=== PATIENT | female | born 1980 | race Caucasian/White ===

== ENCOUNTER 2017-12-17 08:36 | Emergency (ER) | payer MEDICAID, SELFPAY ==
[2017-12-17 08:37] VITALS: BP 126/105; PULSE 99; RESP 18; TEMP 37.1; O2SAT 100; BMI 38.2
--- NOTE | 2017-12-17 08:47 | VDLE_ITS ---
Reason For Study: LEG PAIN RIGHT GSV is normal. CFV is compressible, spontaneous, phasic, competent and demonstrates normal augmentation. FV is compressible, spontaneous, phasic, competent and demonstrates normal augmentation. POP V is compressible, spontaneous, phasic, competent and demonstrates normal augmentation. T/P Trunk is compressible. PTV is compressible. RT PerV is compressible. Procedure Exam performed portable in ED. A preliminary report was called and/or faxed to Dr. Aguilar. Interpretation Summary Deep veins of the right lower extremity are patent and compressible segmentally. There is no evidence of right lower extremity deep vein thrombosis. Valvular competence appears intact within the proximal deep venous system on the right . The right greater saphenous vein appears patent and compressible segmentally. Ordering Physician: April Aguilar Referring Physician: Perla Farrell Performed By: Francisca Hough RVT
--- NOTE | 2017-12-17 08:54 | RAD_ITS ---
STUDY: X-RAY - PELVIS AND RIGHT HIP REASON FOR EXAM: Female, 37 years old. Right hip pain x2 weeks. TECHNIQUE: Radiological exam, hip, unilateral, with pelvis when performed; 2 or 3 views. COMPARISON: None. FINDINGS: There is a non-specific bowel gas pattern. Normal visualized soft tissue structures. Normal bilateral iliac wings, sacroiliac joints and visualized sacrum. Normal bilateral superior and inferior pubic rami. Normal pubic symphysis. Normal bilateral ischial tuberosities. Normal visualized femoral head. Normal acetabulum. Normal hip joint. RAD/HIP, UNI W/ Pelvis 2-3 Views IMPRESSION: Normal x-ray examination of the pelvis and right hip. Electronically Signed: Hernesto Malhotra MD at 9:14 EDT , Service support ,
--- NOTE | 2017-12-17 10:03 | ED.VISSUMM ---
- ER Visit Summary Date of Service: 12/17/17 Chief Complaint: Right thigh pain [] History of Present Illness: The patient is a 37 F [presents to the emergency department complaint of pain in the right thigh that started 3 weeks ago. Patient denies any trauma. Patient states she was seen at urgent care last week and told to use ice and naproxen. Patient denies any shortness of breath. She denies recent travel or surgery. She denies any history of DVT or PE. Patient is on Depo-Provera. Past medical history includes hypertension, kidney stones, and bipolar disorder. Patient has history of gastric bypass surgery.] Physical Examination: HEENT-PERRLA, EOMI. Cranial nerves II through XII grossly intact. TMs clear. Mucous membranes moist. No adenopathy. Cardiovascular-regular rate and rhythm without murmur or ectopy Lungs-clear to auscultation, chest wall stable without crepitus or subcu emphysema Abdomen-normoactive bowel sounds, soft, nontender, no rebound or rigidity, no peritoneal signs. Extremities-intact ?4, normal range of motion, normal pulses, atraumatic. Right leg-patient has no tenderness over the right hip on palpation. She describes the pain is in her right groin however I am unable to reproduce her pain with palpation. She does have some mild discomfort with logrolling and flexion at the hip. She is nervously intact with normal pulses and normal sensation. No erythema or warmth noted. Test Results: [Venous duplex of the right lower extremity was negative for DVT. Patient also had x-rays of the right hip and pelvis which were normal.] Emergency Department Course and Treatment: Patient may have meralgia paresthetica as the etiology of her pain.] Treatment Plan: [Patient advised to wear loose clothing and continue with anti-inflammatory. I will write her for a few [place] for severe pain. Patient will be given referral to orthopedics for follow-up.] Disposition: [Discharged home in stable condition.] Impression: [Right thigh pain-etiology uncertain] This note was generated with [employer] dictation software. It may contain incorrect words, spelling, and punctuation that were not noted in review of the chart prior to signing ED Disposition - Plan for ED Patient: Chief Complaint: Lower Extremity Injury Referrals: Veronica Farrell [Primary Care Provider] -
--- NOTE | 2017-12-17 10:06 | ED.DCSUM_ITS ---
- ER Visit Summary Date of Service: 12/17/17 Chief Complaint: Right thigh pain [] History of Present Illness: The patient is a 37 F [presents to the emergency department complaint of pain in the right thigh that started 3 weeks ago. Patient denies any trauma. Patient states she was seen at urgent care last week and told to use ice and naproxen. Patient denies any shortness of breath. She denies recent travel or surgery. She denies any history of DVT or PE. Patient is on Depo-Provera. Past medical history includes hypertension, kidney stones, and bipolar disorder. Patient has history of gastric bypass surgery.] Physical Examination: HEENT-PERRLA, EOMI. Cranial nerves II through XII grossly intact. TMs clear. Mucous membranes moist. No adenopathy. Cardiovascular-regular rate and rhythm without murmur or ectopy Lungs-clear to auscultation, chest wall stable without crepitus or subcu emphysema Abdomen-normoactive bowel sounds, soft, nontender, no rebound or rigidity, no peritoneal signs. Extremities-intact ?4, normal range of motion, normal pulses, atraumatic. Right leg-patient has no tenderness over the right hip on palpation. She describes the pain is in her right groin however I am unable to reproduce her pain with palpation. She does have some mild discomfort with logrolling and flexion at the hip. She is nervously intact with normal pulses and normal sensation. No erythema or warmth noted. Test Results: [Venous duplex of the right lower extremity was negative for DVT. Patient also had x-rays of the right hip and pelvis which were normal.] Emergency Department Course and Treatment: Patient may have meralgia paresthetica as the etiology of her pain.] Treatment Plan: [Patient advised to wear loose clothing and continue with anti- inflammatory. I will write her for a few [place] for severe pain. Patient will be given referral to orthopedics for follow-up.] Disposition: [Discharged home in stable condition.] Impression: [Right thigh pain-etiology uncertain] This note was generated with [employer] dictation software. It may contain incorrect words, spelling, and punctuation that were not noted in review of the chart prior to signing ED Disposition - Plan for ED Patient: Chief Complaint: Lower Extremity Injury Referrals: Veronica Farrell [Primary Care Provider] -
--- NOTE | 2017-12-17 10:08 | DCINST.ED_ITS ---
ED Disposition - Plan for ED Patient: Chief Complaint: Lower Extremity Injury Instructions: ED Strain Groin Prescriptions: Hydrocodone/Acetaminophen [[place] 5-325 Tablet] 1 - 2 ea PO 4X/DAY PRN PRN 3 Days #12 tab PRN Reason: Pain Referrals: Veronica Farrell [Primary Care Provider] - Paulino Cordoba MD [STAFF PHYSICIAN] - 3-5 Days
[2017-12-17 10:13] VITALS: BP 108/77; PULSE 62; RESP 15; O2SAT 99
== END 2017-12-17 10:14 | disposition home or self-care (01) ==
LOC: ED 09:27
PROVIDERS: Emergency Provider Emergency Medicine; Family Provider Family Medicine; PCP Family Medicine
DX: M79.651 Pain in right thigh (principal); I10 Essential (primary) hypertension; F31.9 Bipolar disorder, unspecified; Z87.442 Personal history of urinary calculi; Z98.84 Bariatric surgery status; Z79.899 Other long term (current) drug therapy
CPT/HCPCS: 73502; 93971; 99282

== ENCOUNTER → 2019-01-08 | Outpatient (CLI) | payer MEDICAID, SELFPAY ==
[2019-01-08 10:36] VITALS: BMI 53.1
--- NOTE | 2019-01-08 10:43 | RAD_ITS ---
STUDY: X-RAY CHEST REASON FOR EXAM: Female, 38 years old. Cough and shortness of breath. TECHNIQUE: PA and lateral views of the chest. COMPARISON: None. FINDINGS: The lungs are clear and expanded. There is no demonstrated pleural abnormality. Normal size heart. Normal mediastinum and anabell. Normal visualized pulmonary arteries. Normal visualized aortic arch and descending thoracic aorta. Normal visualized thoracic spine. Normal visualized ribs, clavicles, and shoulders. There is no demonstrated abnormality of the visualized soft tissue structures of the upper abdomen. RAD/Chest PA and Lateral IMPRESSION: Normal x-ray examination of the chest. Electronically Signed: Kodi Wright, at 11:02 EDT , Service support ,
== END | disposition home or self-care (01) ==
LOC: HPRAD 10:42
PROVIDERS: Family Provider Family Medicine; PCP Family Medicine; Referring Provider Physician Assistant Surgical; Visit Provider Physician Assistant Surgical
DX: J40 Bronchitis, not specified as acute or chronic (principal)
CPT/HCPCS: 71046

== ENCOUNTER → 2020-07-17 08:52 | Emergency (ER) | payer OTHER, MEDICAID, SELFPAY ==
[2020-06-20 07:19] VITALS: BMI 56.9
[2020-07-17 08:53] VITALS: BP 165/91; PULSE 82; RESP 18; TEMP 36.6; O2SAT 97; BMI 54.9
[2020-07-17 09:00] VITALS: BP 165/91; PULSE 82; RESP 18; TEMP 36.6; O2SAT 97
--- NOTE | 2020-07-17 09:07 | CT_ITS ---
STUDY: CT ABDOMEN AND PELVIS WITHOUT CONTRAST REASON FOR EXAM: Female, 39 years old. Kidney Stone. Left flank pain. Prior gastric bypass surgery. RADIATION DOSAGE (If Supplied By Facility): CTDIvol = ( 24.18 ) mGy, DLP = ( 1328.96 ) mGycm TECHNIQUE: Transaxial images were obtained from the dome of the diaphragm to the symphysis pubis without oral contrast, and without intravenous contrast. Sagittal and coronal images were reconstructed. Individualized dose optimization techniques were used for this CT. COMPARISON: None. FINDINGS: The visualized lung bases are unremarkable. The visualized portions of the heart are within normal limits. Normal liver. The patient is status post cholecystectomy. Normal spleen. Normal pancreas. Normal bilateral adrenal glands. There is a 7.8 mm calculus in the anterior aspect of the upper calyx of the right kidney. There is a 3.4 mm calculus in the upper pole calyx of the left kidney adjacent to a punctate calcification in the upper pole. 3 small nonobstructive calculi are seen in the lower pole calyx of the left kidney. There is a mild degree of left hydronephrosis due to a 5.8 mm calculus at the left ureteral pelvic junction. 2 adjacent calculi are also seen in the distal portion of the left ureter as well as in the left ureterovesical junction measuring 6.9 mm. The patient is status post subtotal gastrectomy in keeping with the patient''s history of gastric bypass surgery. Small hiatal hernia. Normal small intestine. Normal colon. The appendix is visualized and appears normal. Normal abdominal aorta. Normal inferior vena cava. Normal retroperitoneum. Normal urinary bladder. Normal abdominal wall. Normal osseous structures. CT/Abdomen/Pelvis without Cont IMPRESSION: Bilateral nonobstructive intrarenal calculi. 5.8 mm calculus at the left ureteropelvic junction as well as 6.9 mm calculus at the left ureterovesical junction. Electronically Signed: Kodi Wright MD at 10:47 EDT , Service support ,
--- NOTE | 2020-07-17 09:08 | EDS_ITS ---
HPI History of Present Illness Chief Complaint: Flank Pain Detail of Chief Complaint: Left flank pain Informant: patient Onset/Context/Timing Onset: Yesterday Context: Gradual Onset Timing: Waxes and wanes Current Severity: Moderate Maximum Severity: Moderate Narrative Narrative: Patient presents with left flank pain that started yesterday. She states pain is now lower in her back and wrapping around to the left lower quadrant. Pain feels similar to her prior kidney stones. She has required lithotripsy in the past. She denies fever or chills. No dysuria. No obvious hematuria. PFSH PFS Medical History Alcohol abuse Anemia Anxiety Bipolar disorder Depression HTN (hypertension) Kidney stones opiate abuse Home Medications lisinopril 20 mg-hydrochlorothiazide 12.5 mg tablet 1 tab PO DAILY 28 Days #28 05/23/17 [History Last Taken Unknown] loratadine 10 mg tablet 10 mg PO QDAY 05/23/17 [History Last Taken Unknown] omeprazole 40 mg capsule,delayed release 40 mg PO DAILY 28 Days #28 05/23/17 [History Last Taken Unknown] aripiprazole 15 mg tablet 15 mg PO DAILY 30 Days #30 12/12/18 [History Last T [place] Unknown] escitalopram oxalate 20 mg tablet 20 mg PO DAILY 30 Days #30 12/12/18 [History Last Taken Unknown] naproxen [Naprosyn] 500 mg PO BID PRN #20 tab 07/17/20 [Rx Last Taken Unknown] ondansetron 4 mg PO Q8H PRN 3 Days #10 tab 07/17/20 [Rx Last Taken Unknown] oxycodone-acetaminophen [Percocet] 1 tab PO Q6H PRN 3 Days #14 tab 07/17/20 [Rx Last Taken Unknown] Allergy/AdvReac Type Severity Reaction Status Date / Time morphine AdvReac Other Verified 07/17/20 08:54 topiramate [From Topamax] AdvReac Other Verified 07/17/20 08:54 Family History Other Addiction Diabetes Heart disease Hypertension Obesity Surgical History Gastric bypass status for obesity History of gastric bypass History of lithotripsy Hx of cholecystectomy Social History Smoking Status: Never smoker alcohol intake: current alcohol intake frequency: 0-2 drinks per day Alcohol type: hard liquor ROS ROS ED Constitutional Constitutional ED: Denies chills or fever(s) Eyes Eyes: Denies change in vision or discharge from eye(s) ENT ENT ED: Denies discharge from eye(s), rhinorrhea or sore throat Cardiovascular Cardiovascular: Denies chest pain or palpitations Respiratory/Chest Respiratory/Chest: Denies cough or dyspnea Gastrointestinal Gastrointestinal: Reports abdominal pain; Denies diarrhea, nausea or vomiting Genitourinary Genitourinary ED: Denies difficulty urinating, dysuria or hematuria Musculoskeletal Musculoskeletal: Reports back pain and other Details: Left flank pain ; Denies extremity pain Integumentary Denies Abrasions or rash Neurologic Neurologic: Denies headache(s) or weakness Psychiatric Psychiatric: Denies anxiety or depression Endocrine Endocrinology: Denies polydipsia or polyuria Allergic/Immunologic Allergic/Immunologic ED: Denies lip swelling or urticaria EXAM Physical Exam Const Vital Signs: 07/17/20 08:53 07/17/20 09:00 07/17/20 11:54 Temperature 98 F 98 F 98.1 F Temperature Source Temporal Temporal Temporal Pulse Rate 82 82 84 Respiratory Rate 18 18 16 Blood Pressure 165/91 H 165/91 H 124/85 H Blood Pressure Mean 115 115 98 Pulse Ox 97 97 99 Oxygen Delivery Method Room Air Room Air Room Air Positive well nourished and well developed General Appearance ED: well developed HEENT Reports normocephalic and head/scalp atraumatic Eyes PERRL and EOMs intact bilaterally Neck supple Chest Wall inspection of chest normal and palpation of chest normal Resp normal respiratory effort and clear to auscultation bilaterally Cardio regular rate and regular rhythm GI non-tender Auscultation: hypoactive bowel sounds Palpation: soft Back/Spine no CVA tenderness Extremity normal to inspection Neuro oriented x3 Sensorium / Orientation: alert Psych mental status grossly normal Skin no rashes or lesions noted MDM MDM MDM Narrative Medical decision making narrative: Patient had taken ibuprofen just prior to arrival. She was given Dilaudid and Zofran for pain control. She does have a morphine allergy. Lab Data Attestation: I reviewed the patient's lab results. Labs: Laboratory Results - last 24 hr 07/17/20 07/17/20 07/17/20 09:30 09:30 09:30 WBC 7.8 RBC 4.36 Hgb 7.5 L Hct 28.9 L MCV 66.3 L MCH 17.2 L MCHC 26.0 L RDW Std Deviation 44.8 H RDW Coeff of [place] 19.0 H Plt Count 571 H MPV 9.0 Immature Gran % (Auto) 0.400 Neut % (Auto) 78.4 H Lymph % (Auto) 14.5 L [place] % (Auto) 4.6 Eos % (Auto) 1.8 Baso % (Auto) 0.3 Absolute Neuts (auto) 6.1 Absolute Lymphs (auto) 1.13 Nucleated RBC % 0 Sodium 140 Potassium 3.9 Chloride 105 Carbon Dioxide 27.0 Anion Gap 8 BUN 19 H Creatinine 0.83 Estim Creat Clear Calc 81.89 Est GFR (MDRD) Af Amer 98 Est GFR (MDRD) Non-Af 81 BUN/Creatinine Ratio 22.9 H Glucose 110 H Calcium 8.8 Serum , Qual NEGATIVE Urine Color Urine Clarity Urine pH Ur Specific [place] Urine Protein Urine Glucose (UA) Urine Ketones Urine Occult Blood Urine Nitrite Urine Bilirubin Urine Urobilinogen Ur Leukocyte Esterase Urine RBC Urine WBC Ur Squamous Epith Cells Urine Bacteria Urine Mucus 07/17/20 11:22 WBC RBC Hgb Hct MCV MCH MCHC RDW Std Deviation RDW Coeff of [place] Plt Count MPV Immature Gran % (Auto) Neut % (Auto) Lymph % (Auto) [place] % (Auto) Eos % (Auto) Baso % (Auto) Absolute Neuts (auto) Absolute Lymphs (auto) Nucleated RBC % Sodium Potassium Chloride Carbon Dioxide Anion Gap BUN Creatinine Estim Creat Clear Calc Est GFR (MDRD) Af Amer Est GFR (MDRD) Non-Af BUN/Creatinine Ratio Glucose Calcium Serum , Qual Urine Color Yellow Urine Clarity Sl. Cloudy Urine pH 6.0 Ur Specific [place] 1.020 Urine Protein 30 H Urine Glucose (UA) Normal Urine Ketones Negative Urine Occult Blood 250 H Urine Nitrite Negative Urine Bilirubin Negative Urine Urobilinogen Normal Ur Leukocyte Esterase 25 H Urine RBC 25-50 SEEN Urine WBC 0-5 SEEN Ur Squamous Epith Cells 0-5 SEEN Urine Bacteria RARE Urine Mucus 0 SEEN Radiography Diagnostic Testing: Radiology Impression Abdomen/Pelvis CT 07/17/20 09:07 IMPRESSION: Bilateral nonobstructive intrarenal calculi. 5.8 mm calculus at the left ureteropelvic junction as well as 6.9 mm calculus at the left ureterovesical junction. Electronically Signed: Kodi Wright MD at 10:47 EDT , Service support , Treatment and Re-Evaluation Comments:: Patient's blood work is reviewed. Hemoglobin is currently 7.5. The last hemoglobin I have to compare to is from 2017 at which point it was 11. Patient recently established care with a local primary care physician but has not had any blood work done. This was discussed with her. She has not had any obvious source of bleeding and will follow up closely for this. Urinalysis does reveal blood but no sign of infection. Renal function is normal. CT scan does confirm left-sided kidney stones. She has 2 small stones together at the left UVJ and one at the UPJ. Patient's pain is well controlled at this time. She has a urologist in the [place] area and wishes to follow-up with him. Patient is given return instructions. Discharge Plan Triage Chief Complaint: Flank Pain ED Provider: Lilliam Garcia Dx/Rx/DC Orders Clinical Impression: Kidney stone, Anemia Instructions: Anemia, ED Kidney Stone w/ Colic Prescriptions: New oxycodone-acetaminophen [Percocet] 5-325 mg tablet 1 tab PO Q6H PRN (Reason: pain) 3 Days Qty: 14 RF: 0 ondansetron 4 mg tablet,disintegrating 4 mg PO Q8H PRN (Reason: nausea and vomiting) 3 Days Qty: 10 RF: 0 naproxen [Naprosyn] 500 mg tablet 500 mg PO BID PRN (Reason: pain) Qty: 20 RF: 0 No Action lisinopril-hydrochlorothiazide 20-12.5 mg tablet 1 tab PO DAILY 28 Days Qty: 28 RF: 0 omeprazole 40 mg capsule,delayed release(DR/EC) 40 mg PO DAILY 28 Days Qty: 28 RF: 0 loratadine [Claritin] 10 mg tablet 10 mg PO QDAY RF: 0 aripiprazole 15 mg tablet 15 mg PO DAILY 30 Days Qty: 30 RF: 0 escitalopram oxalate 20 mg tablet 20 mg PO DAILY 30 Days Qty: 30 RF: 0 Primary Care Provider: Thomas Guidry Referrals: Thomas Guidry MD [Primary Care Provider] - Disposition Disposition: Home, self care
[2020-07-17] MEDS: HYDROmorphone 0.5 MG/0.5 ML SYRINGE IV (09:29)
[2020-07-17] MEDS: Ondansetron 4 MG/2 ML Vial IV (09:29)
[2020-07-17 09:39] LABS: Absolute Lymphocyte Count 1.13 X10^3/uL (0.83-4.51); Absolute Neutrophil Count 6.1 X10^3/uL (2.0-7.7); Basophil# 0.02 X10^3/uL; Basophil% 0.3 % (0-1); Eosinophil# 0.14 X10^3/uL; Eosinophils% 1.8 % (0-5); Hematocrit 28.9 % (37-47); Hemoglobin 7.5 g/dL (12.0-15.0); Lymphocyte # 1.13 X10^3/ul (0.83-4.51); Lymphocyte % 14.5 % (19-41); Mean Corpuscular Hgb 17.2 pg (27.0-32.0); Mean Corpuscular Volume 66.3 fL (81-99); Monocyte# 0.36 X10^3/uL; Monocyte% 4.6 % (0-10); NRBC Flagged by Analyzer 0 % (0-5); Neutrophil % 78.4 % (47-70); Platelet Count 571 K/mm3 (150-450); RBC Distribution Width SD 44.8 fl (35.1-43.9); Red Blood Count 4.36 M/mm3 (4.2-5.4); White Blood Count 7.8 K/mm3 (4.4-11.0)
[2020-07-17] MEDS: 0.9% Normal Saline 1,000 ML 250 ML IV (09:39)
[2020-07-17 09:49] LABS: Anion Gap 8 (5-15); BUN 19 mg/dL (7-18); BUN/Creat Ratio 22.9 RATIO (10-20); Calcium,Total 8.8 mg/dL (8.5-10.1); Chloride 105 mmol/L (98-107); Creatinine, Serum 0.83 mg/dL (0.55-1.02); EST Glomerular Filtration Rate 81 mL/min (>60); Est Glom Filt Rate - Afr Amer 98 mL/min (>60); Estimated Creatinine Clearance 81.89 ml/min; Glucose 110 mg/dL (74-106); Potassium 3.9 mmol/L (3.5-5.1); Sodium Level 140 mmol/L (136-145)
[2020-07-17 10:15] LABS: Pregnancy, Serum, hCG Quali. NEGATIVE Negative (0-9 Nonpreg)
[2020-07-17 10:23] LABS: Internal QC Validated? YES +Cl - CLEAR BKGD
[2020-07-17 11:28] LABS: Mucous, Urine 0 SEEN /hpf (<or=2+)
[2020-07-17 11:29] LABS: Color, Urine Yellow (Yellow); Glucose, Dipstick Normal (Normal); Ketone-Dipstick Negative (Negative); Leukocyte Esterase-Dipstick 25 /ul (Negative); Nitrite-Dipstick Negative (Negative); Occult Blood-Urine 250 /ul (Negative); Protein-Dipstick 30 mg/dl (Negative); Urine Bilirubin Dipstick Negative (Negative); Urine Clarity Sl. Cloudy (Clear); Urine Urobilinogen Normal (Normal)
[2020-07-17 11:44] LABS: Bacteria RARE /hpf (None Seen); Red Blood Cells-Urine 25-50 SEEN /hpf (0-5); Squamous Epithelial Cells - UA 0-5 SEEN /hpf (5-10); White Blood Cells 0-5 SEEN /hpf (0-5)
[2020-07-17] MEDS: HYDROmorphone 1 MG/ML Syringe IV (11:53)
[2020-07-17 11:54] VITALS: BP 124/85; PULSE 84; RESP 16; TEMP 36.7; O2SAT 99
[2020-07-17 12:25] VITALS: PULSE 74; O2SAT 95
== END | disposition home or self-care (01) ==
PROVIDERS: Emergency Provider Emergency Medicine; PCP Family Medicine
DX: N20.0 Calculus of kidney (principal); I10 Essential (primary) hypertension; Z87.442 Personal history of urinary calculi; Z79.899 Other long term (current) drug therapy
CPT/HCPCS: 74176; 80048; 81001; 84703; 85025; 96361; 96374; 96375; 96376; 99284; J7030; A4216; J2405

== ENCOUNTER → 2020-08-11 12:28 | Outpatient (CLI) | payer OTHER, MEDICAID, SELFPAY ==
[2020-07-17 08:53] VITALS: BMI 54.9
[2020-08-11 15:21] LABS: Absolute Neutrophil Count 5.3 X10^3/uL (2.0-7.7); Basophil# 0.02 X10^3/uL; Basophil% 0.3 % (0-1); Eosinophil# 0.11 X10^3/uL; Eosinophils% 1.5 % (0-5); Hematocrit 28.9 % (37-47); Hemoglobin 7.5 g/dL (12.0-15.0); Lymphocyte % 18.3 % (19-41); Mean Corpuscular Hgb 16.9 pg (27.0-32.0); Mean Corpuscular Volume 65.2 fL (81-99); Mean Platelet Vol. 9.6 fl (6.2-12.0); Monocyte# 0.35 X10^3/uL; Monocyte% 4.9 % (0-10); NRBC Flagged by Analyzer 0 % (0-5); Neutrophil # 5.32 X10^3/uL (2.7-7.7); Neutrophil % 74.7 % (47-70); Platelet Count 654 K/mm3 (150-450); RBC Distribution Width SD 43.7 fl (35.1-43.9); RET-HE 18.3 pg (30-35); Red Blood Count 4.43 M/mm3 (4.2-5.4); White Blood Count 7.1 K/mm3 (4.4-11.0)
[2020-08-11 15:53] LABS: ALB/GLOB Ratio 1.1 RATIO (0.9-2.4); AST(SGOT) 17 U/L (15-37); Alanine Aminotransfer ALT/SGPT 22 U/L (13-56); Albumin, Serum 3.8 g/dL (3.2-5.0); Alkaline Phosphatase 138 U/L (45-117); Anion Gap 9 (5-15); BUN 16 mg/dL (7-18); BUN/Creat Ratio 23.5 RATIO (10-20); Calcium,Total 9.2 mg/dL (8.5-10.1); Chloride 106 mmol/L (98-107); Cholesterol 207 mg/dL (200); Creatinine, Serum 0.68 mg/dL (0.55-1.02); EST Glomerular Filtration Rate 102 mL/min (>60); Est Glom Filt Rate - Afr Amer 123 mL/min (>60); Ferritin 4 ng/mL (8-252); Globulin 3.4 g/dL (2.2-4.2); Glucose 80 mg/dL (74-106); High Density Lipoprotein 52 mg/dL; Iron Binding Capacity,Total 488 ug/dL (250-450); Potassium 3.8 mmol/L (3.5-5.1); Protein, Total 7.2 g/dL (6.4-8.2); Sodium Level 139 mmol/L (136-145); Thyroid Stim Hormone (TSH) 1.59 uIU/mL (0.358-3.74); Triglycerides 83 mg/dL; Very Low Density Lipoprotein 17 mg/dL (5-40)
== END ==
PROVIDERS: PCP Family Medicine; Referring Provider Family Medicine; Visit Provider Family Medicine
DX: K21.9 Gastro-esophageal reflux disease without esophagitis (principal); I10 Essential (primary) hypertension; D64.9 Anemia, unspecified
CPT/HCPCS: 36415; 80053; 80061; 82728; 83550; 84443; 85025; 85045

== ENCOUNTER → 2020-08-16 15:18 | Outpatient (CLI) | payer OTHER, MEDICAID, SELFPAY ==
[2020-07-17 08:53] VITALS: BMI 54.9
--- NOTE | 2020-08-16 15:22 | RAD_ITS ---
STUDY: X-RAY - ABDOMEN/PELVIS REASON FOR EXAM: Female, 39 years old. KIDNEY STONE TECHNIQUE: Single AP view of the abdomen / pelvis. COMPARISON: None. FINDINGS: Normal visualized lung bases. There is an unremarkable bowel gas pattern. The visualized liver, spleen and kidneys are grossly normal in size and morphology. Normal soft tissue structures. Normal visualized osseous structures. RAD/Abdomen Single View IMPRESSION: Normal x-ray examination of the abdomen and pelvis. Electronically Signed: Claudio Williamson MD at 15:32 EDT Tel , Service support ,
== END ==
PROVIDERS: PCP Family Medicine; Referring Provider Urology; Visit Provider Urology
DX: N20.0 Calculus of kidney (principal)
CPT/HCPCS: 74018

== ENCOUNTER → 2020-08-18 07:56 | Outpatient (CLI) | payer OTHER, MEDICAID, SELFPAY ==
[2020-07-17 08:53] VITALS: BMI 54.9
[2020-08-18] VITALS (7 sets, daily range): BP systolic 120–157; BP diastolic 80–98; PULSE 75–91; RESP 16–18; TEMP 36.4–36.9; O2SAT 96–99; BMI 53.2
[2020-08-18] MEDS: 0.9% NaCl Peripheral Flush Adult/Peds IV ×2 (08:16→10:15)
== END ==
PROVIDERS: PCP Family Medicine; Referring Provider Family Medicine; Visit Provider Family Medicine
DX: D50.9 Iron deficiency anemia, unspecified (principal)
CPT/HCPCS: 36415; 36430; 86850; 86900; 86901; 86920; 86922; J7040; J7050; P9016; A4216

== ENCOUNTER 2020-08-22 06:03 | Day surgery (SDC) | payer OTHER, MEDICAID, SELFPAY ==
[2020-07-17 08:53] VITALS: BMI 54.9
[2020-08-18 08:21] VITALS: BMI 53.2
[2020-08-22] VITALS (9 sets, daily range): BP systolic 103–132; BP diastolic 51–80; PULSE 70–79; RESP 16–18; TEMP 36.2–36.3; O2SAT 94–100; BMI 54.2
[2020-08-22] MEDS: Lactated Ringers 1,000 ML 100 ML IV (06:49)
--- NOTE | 2020-08-22 06:50 | HP.PCM_ITS ---
HPI - General HPI Narrative LOUIS JIMENEZ, is a 39 F who presents for shockwave lithotripsy of left renal stones. She is s/p gastric bypass and has had several stones in the past. Recently passed two stones seen in distal ureter on CT. [facility], [facility] Medical History (Updated 08/22/20 @ 06:[address] Christina Malloy MD) Alcohol abuse Alcohol use Anemia Anxiety Bipolar disorder Depression Gastric reflux HTN (hypertension) Kidney stones Kidney stones Migraine headache Non-smoker opiate abuse Renal calculus Shortness of breath on exertion Substance abuse Wears glasses Home Medications loratadine 10 mg tablet 10 mg PO QDAY 05/23/17 [History Last Taken Unknown] omeprazole 40 mg capsule,delayed release 40 mg PO DAILY 28 Days #28 05/23/17 [History Last Taken Unknown] aripiprazole 15 mg tablet 15 mg PO DAILY 30 Days #30 12/12/18 [History Last Taken Unknown] escitalopram oxalate 20 mg tablet 20 mg PO DAILY 30 Days #30 12/12/18 [History Last Taken Unknown] naproxen [Naprosyn] 500 mg PO BID PRN #20 tab 07/17/20 [Rx Last Taken Unknown] ondansetron 4 mg PO Q8H PRN 3 Days #10 tab 07/17/20 [Rx Last Taken Unknown] ferrous sulfate 325 mg PO DAILY 08/15/20 [History Last Taken Unknown] hydrochlorothiazide 12.5 mg PO DAILY 08/15/20 [History Last Taken Unknown] lisinopril 20 mg PO DAILY 08/15/20 [History Last Taken Unknown] rizatriptan 10 mg PO PRN PRN 08/15/20 [History Last Taken Unknown] Allergy/AdvReac Type Severity Reaction Status Date / Time morphine AdvReac Other Verified 08/22/20 06:34 topiramate [From Topamax] AdvReac Other Verified 08/22/20 06:34 Family History Other Addiction Diabetes Heart disease Hypertension Obesity Surgical History Gastric bypass status for obesity History of gastric bypass History of lithotripsy Hx of cholecystectomy Social History Smoking Status: Never smoker alcohol intake: current alcohol intake frequency: 0-2 drinks per day Alcohol type: hard liquor ROS Constitutional Constitutional: Reports systems reviewed and no addt'l complaints, except as documented Eyes Eyes: Reports systems reviewed and no addt'l complaints, except as documented ENT HEENT: Reports systems reviewed and no addt'l complaints, except as documented Cardiovascular Cardiovascular: Reports systems reviewed and no addt'l complaints, except as documented; Denies chest pain, irregular heart rhythm or nausea Respiratory/Chest Respiratory/Chest: Reports systems reviewed and no addt'l complaints, except as documented and dyspnea Gastrointestinal Gastrointestinal: Reports systems reviewed and no addt'l complaints, except as documented Genitourinary Genitourinary: Reports systems reviewed and no addt'l complaints, except as documented Musculoskeletal Musculoskeletal: Reports systems reviewed and no addt'l complaints, except as documented Integumentary Integumentary: Reports systems reviewed and no addt'l complaints, except as documented Neurologic Neurologic: Reports systems reviewed and no addt'l complaints, except as documented Psychiatric Psychiatric: Reports systems reviewed and no addt'l complaints, except as documented Vital Signs Vital Signs Vital Signs: 08/22/20 06:35 08/22/20 06:37 Temperature 97.2 F L Temperature Source Temporal Pulse Rate 79 Respiratory Rate 18 Respiratory Pattern Normal Blood Pressure 103/51 L Blood Pressure Mean 68 Blood Pressure Source Monitor Blood Pressure Position Semi-Fowlers Blood Pressure Location Right Arm Pulse Ox 100 Oxygen Delivery Method Room Air Weight Weight: 147.8 kg Body Mass Index (BMI) 54.2 Physical Exam HEENT normocephalic, head/scalp atraumatic, hearing grossly normal bilaterally, external ears normal and external nose normal Eyes conjunctivae normal and no scleral icterus General Eye: normal appearance of both eyes Neck supple General: trachea midline Lymph Lymphatic: no lymphedema noted Chest inspection of chest normal Chest: symmetrical chest wall rise Resp normal respiratory effort, normal air movement, no retractions and no use of accessory muscles Effort and Inspection: symmetric chest movement Cardio regular rate and regular rhythm GI soft to palpation, non-tender and non-distended no CVA tenderness and external exam normal Back/Spine no CVA tenderness Extremity normal to inspection Skin no rashes or lesions noted and no wounds Neuro oriented x3, CN's II-XII intact bilaterally and moves all extremities Psych mental status grossly normal, thought process normal, cooperative and affect normal Results Lab / Micro Data Micro: Microbiology 08/21/20 10:10 SARS-CoV-2 Antigen (Rapid) - Final Interface Orders Assessment & Plan Assessment/Plan (1) Renal calculus: PLAN: proceed with extracorporeal shockwave lithotripsy. Informed consent obtained. Procedure Criteria Type of Procedure Procedure Type: Elective Elective Risks - COVID COVID Risk Discussion: The surgeon/proceduralist and patient have discussed in detail the risk of exposure to and/or potential harm posed by the COVID-19 virus with having a surgery/procedure at this time versus the risk of delaying the surgery/procedure. It is not possible to know either the risk of delaying the surgery or procedure or chance of getting an infection with perfect accuracy, but a joint decision was made between the patient and the surgeon/proceduralist to proceed at this time with the scheduled surgery/procedure as indicated on the consent form.
[2020-08-22 07:25] LABS: Internal QC Validated? YES +Cl - CLEAR BKGD; Pregnancy, Urine Negative Negative
[2020-08-22] MEDS: Cefazolin 2 GM in 0.9% Normal Saline 100 ML IV (07:30)
--- NOTE | 2020-08-22 07:58 | PCM.OPRPT ---
Problems Associated Problem List Diagnoses (1) Renal calculus: Report of Operation Date of Procedure: 08/22/20 Pre-Operative Diagnosis: Right renal calculus Post-Operative Diagnosis: Same Surgery/Procedure Performed:: Right renal extracorporal shockwave lithotripsy Surgeon: Christina Malloy Type of Anesthesia: General Specimen's removed: None Description of Procedure: The patient is a 39-year-old female with history of gastric bypass and multiple stones. She recently passed 2 ureteral calculi and on the CAT scan has a 8 mm remaining right renal stone, without hydronephrosis. After discussing the options, she desired to proceed with shockwave lithotripsy. Patient was taken to the operating room and placed on the operating room table. Anesthesia monitored the head, neck, airway, IV access and vital signs throughout the case. Once anesthesia was appropriately administered the patient was aligned with a lithotripter the stone was identified. 3000 Shocks were applied to the stone and it appeared to be well fragmented at the conclusion of the case. She was awakened and taken to the recovery room in good condition. There were no complications during the procedure. Grafts/Implants Used: None Complications None Admit VTE Documentation VTE Present on Admission: Yes VTE Mechan Device Prophylaxis: SCD's VTE Pharm Prophylaxis ordered?: No Reason prophylaxis not ordered:: Treatment Not Indicated
--- NOTE | 2020-08-22 08:02 | PCM.DC ---
Discharge Instructions Diet Discharge Diet: No restrictions Activity Discharge Activity: Return to Normal Activity May resume sexual activity in: No Restrictions Dressing / Incision Call your doctor if you observe: Fever of 101 or Higher, Inability to urinate, Inability to have a bowel movement, Calf discomfort and Uncontrolled pain Follow Up Care Please Follow Up With: Christina Malloy MD When: 2-3 weeks, call office for appointment Test Results: Test results from this visit will be discussed in further detail at your follow-up appointment, if applicable. Discharge Plan Admission Attending Provider: Christina Malloy Primary Care Provider: Thomas Guidry Discharge Orders/Prescriptions Prescriptions: New cephalexin 500 mg capsule 500 mg PO Q12 Qty: 6 RF: 0 Continued omeprazole 40 mg capsule,delayed release(DR/EC) 40 mg PO DAILY 28 Days Qty: 28 RF: 0 loratadine [Claritin] 10 mg tablet 10 mg PO QDAY RF: 0 aripiprazole 15 mg tablet 15 mg PO DAILY 30 Days Qty: 30 RF: 0 escitalopram oxalate 20 mg tablet 20 mg PO DAILY 30 Days Qty: 30 RF: 0 ondansetron 4 mg tablet,disintegrating 4 mg PO Q8H PRN (Reason: nausea and vomiting) 3 Days Qty: 10 RF: 0 naproxen [Naprosyn] 500 mg tablet 500 mg PO BID PRN (Reason: pain) Qty: 20 RF: 0 lisinopril 20 mg tablet 20 mg PO DAILY RF: 0 rizatriptan 10 mg tablet 10 mg PO PRN PRN (Reason: MIGRAINES) RF: 0 ferrous sulfate 325 mg (65 mg iron) Tablet 325 mg PO DAILY RF: 0 hydrochlorothiazide 12.5 mg tablet 12.5 mg PO DAILY RF: 0 Referrals / Follow Up: Thomas Guidry MD [Primary Care Provider] - Disposition Disposition (needs filled in before D/C Order can be placed): Home, self care
== END 2020-08-22 10:41 | disposition home or self-care (01) ==
LOC: SDC 06:03 → AC 06:04
PROVIDERS: PCP Family Medicine; Referring Provider Urology; Visit Provider Urology
PROC: (CPT 50590; principal; 2020-08-22 07:20)
DX: N20.0 Calculus of kidney (principal); D64.9 Anemia, unspecified; I10 Essential (primary) hypertension; K21.9 Gastro-esophageal reflux disease without esophagitis; F31.9 Bipolar disorder, unspecified; F41.9 Anxiety disorder, unspecified; Z79.899 Other long term (current) drug therapy; Z98.84 Bariatric surgery status
CPT/HCPCS: 00873; 50590; 81025; 87426; C9803; J7120; J2405

== ENCOUNTER → 2020-12-14 11:52 | Outpatient (CLI) | payer MEDICAID, SELFPAY ==
[2020-12-14 15:14] LABS: Absolute Lymphocyte Count 1.81 X10^3/uL (0.83-4.51); Absolute Neutrophil Count 7.2 X10^3/uL (2.0-7.7); Basophil# 0.04 X10^3/uL; Basophil% 0.4 % (0-1); Eosinophil# 0.19 X10^3/uL; Hemoglobin 10.8 g/dL (12.0-15.0); Lymphocyte # 1.81 X10^3/ul (0.83-4.51); Lymphocyte % 18.7 % (19-41); Mean Corpuscular Hgb 23.5 pg (27.0-32.0); Mean Corpuscular Volume 78.3 fL (81-99); Mean Platelet Vol. 10.1 fl (6.2-12.0); Monocyte# 0.38 X10^3/uL; Monocyte% 3.9 % (0-10); NRBC Flagged by Analyzer 0 % (0-5); Neutrophil # 7.23 X10^3/uL (2.7-7.7); Neutrophil % 74.7 % (47-70); Platelet Count 453 K/mm3 (150-450); RBC Distribution Width CV 16.1 % (11.6-14.6); RBC Distribution Width SD 45.5 fl (35.1-43.9); White Blood Count 9.7 K/mm3 (4.4-11.0)
[2020-12-14 15:28] LABS: Vitamin B12 460 pg/mL (211-911); Vitamin D,25 Hydroxy 13.9 ng/mL
[2020-12-14 15:39] LABS: ALB/GLOB Ratio 0.9 RATIO (0.9-2.4); AST(SGOT) 13 U/L (15-37); Alanine Aminotransfer ALT/SGPT 24 U/L (13-56); Albumin, Serum 3.4 g/dL (3.2-5.0); Alkaline Phosphatase 149 U/L (45-117); Anion Gap 8 (5-15); BUN 12 mg/dL (7-18); BUN/Creat Ratio 16.4 RATIO (10-20); Calcium,Total 9.1 mg/dL (8.5-10.1); Chloride 105 mmol/L (98-107); Cholesterol 221 mg/dL (200); Creatinine, Serum 0.73 mg/dL (0.55-1.02); EST Glomerular Filtration Rate 94 mL/min (>60); Est Glom Filt Rate - Afr Amer 113 mL/min (>60); Ferritin 4 ng/mL (8-252); Globulin 3.8 g/dL (2.2-4.2); Glucose 85 mg/dL (74-106); High Density Lipoprotein 45 mg/dL; Iron 22 ug/dL (50-170); Iron Binding Capacity,Total 405 ug/dL (250-450); Potassium 4.1 mmol/L (3.5-5.1); Protein, Total 7.2 g/dL (6.4-8.2); Sodium Level 140 mmol/L (136-145); Thyroid Stim Hormone (TSH) 1.64 uIU/mL (0.358-3.74); Triglycerides 170 mg/dL; Very Low Density Lipoprotein 34 mg/dL (5-40)
[2020-12-20 14:30] LABS: Zinc, Plasma or Serum 62 ug/dL (44-115)
== END ==
PROVIDERS: PCP Family Medicine; Referring Provider Family Medicine; Visit Provider Family Medicine
DX: D50.9 Iron deficiency anemia, unspecified (principal); I10 Essential (primary) hypertension; E66.01 Morbid (severe) obesity due to excess calories; E55.9 Vitamin D deficiency, unspecified; Z98.84 Bariatric surgery status
CPT/HCPCS: 36415; 80053; 80061; 82306; 82607; 82728; 83540; 83550; 83735; 84100; 84443; 84630; 85025

== ENCOUNTER 2021-02-06 03:43 | Emergency (ER) | payer MEDICAID, SELFPAY ==
[2021-02-06 03:44] VITALS: BP 186/110; PULSE 98; RESP 17; TEMP 36.1; O2SAT 98; BMI 56.8
--- NOTE | 2021-02-06 04:04 | EX.ED.DYSGE1 ---
HPI History of Present Illness Chief Complaint: Complaint Narrative Narrative: Patient is a 40-year-old female who states that she has had intermittent urinary symptoms for about 1 to 2 weeks. She states however in the last 1 to 2 days she has had increased urinary frequency with dysuria. She states she is also noticed increase in pain along the genital region radiating back towards the left. She does states she has a history of kidney stones but states this feels different in nature. She denies any fevers or chills but states that with her symptoms she is concerned for worsening UTI and therefore comes in for evaluation. Patient denies any vaginal discharge concern for STD or . [facility] Medical History Alcohol abuse Alcohol use Anemia Anxiety Bipolar disorder Depression Gastric reflux HTN (hypertension) Kidney stones Kidney stones Migraine headache Non-smoker opiate abuse Renal calculus Shortness of breath on exertion Substance abuse Wears glasses Home Medications phenazopyridine [Pyridium] 200 mg PO TID 2 Days #6 tab 02/06/21 [Rx Last Taken Unknown] sulfamethoxazole-trimethoprim [Bactrim DS] 1 tab PO BID #20 tab 02/06/21 [Rx Last Taken Unknown] Allergy/AdvReac Type Severity Reaction Status Date / Time morphine AdvReac Other Verified 02/06/21 03:49 topiramate [From Topamax] AdvReac Other Verified 02/06/21 03:49 Family History Other Addiction Diabetes Heart disease Hypertension Obesity Surgical History Gastric bypass status for obesity History of gastric bypass History of lithotripsy Hx of cholecystectomy Social History Smoking Status: Never smoker alcohol intake: current alcohol intake frequency: 0-2 drinks per day Alcohol type: hard liquor ROS ROS ED Constitutional Constitutional ED: Denies chills or fever(s) Cardiovascular Cardiovascular: Denies chest pain Respiratory/Chest Respiratory/Chest: Denies cough or dyspnea Gastrointestinal Gastrointestinal: Reports abdominal pain; Denies diarrhea, nausea or vomiting Genitourinary Genitourinary ED: Reports dysuria and urinary frequency; Denies hematuria Musculoskeletal Musculoskeletal: Reports back pain; Denies myalgias Integumentary Denies rash Neurologic Neurologic: Denies headache(s) EXAM Physical Exam Const Vital Signs: 02/06/21 03:44 Temperature 97 F L Temperature Source Temporal Pulse Rate 98 Respiratory Rate 17 Blood Pressure 186/110 H Blood Pressure Mean 135 Pulse Ox 98 Oxygen Delivery Method Room Air Positive well nourished, well developed and obese General Appearance ED: well developed Nutritional Appearance: obese Eyes PERRL and EOMs intact bilaterally Neck supple Resp normal respiratory effort and clear to auscultation bilaterally Cardio regular rate and regular rhythm Rate: other Other Details: Radial pulses are plus 2 out of 4 bilaterally are equal and symmetric GI non-tender and non-distended GI Narrative: Abdomen is obese soft and nondistended with normal active bowel sounds. There is mild pain with palpation in the suprapubic region without voluntary guarding or rigidity. Auscultation: normoactive bowel sounds Palpation: soft Back/Spine Back/Spine Narrative: Positive left CVA pain Extremity normal to inspection Neuro oriented x3 and CN's II-XII intact bilaterally Sensorium / Orientation: alert Motor Exam: strength 5/5 throughout Psych mental status grossly normal Skin no rashes or lesions noted MDM MDM MDM Narrative Medical decision making narrative: Patient presented to the ER afebrile. Her abdomen was soft and nonsurgical. She did report a history of stones but stated that this was different. We discussed the possible CAT scan as she did have unilateral flank pain but as her abdomen is soft and nonsurgical and she feels that this is more UTI versus kidney stone elected to begin with basic laboratory studies. Patient's kidney function is normal. White count is not elevated. Urine shows +4 bacteria consistent with UTI but no blood going against kidney stone. Patient was given IV hydration Toradol Pyridium and then dosed with Rocephin. With her flank pain there is concern she is progressing to acute pyelonephritis. The urine will be sent for culture. However at this time as she is afebrile with no leukocytosis or left shift or signs of acute kidney injury I do not feel there is need for hospital placement and patient can be discharged home on antibiotics and symptomatic meds Discharge Plan Triage Chief Complaint: Complaint ED Provider: Cesar Coon Dx/Rx/DC Orders Clinical Impression: Acute pyelonephritis Instructions: ED Pyelonephritis, Female (Adult) Prescriptions: New sulfamethoxazole-trimethoprim [Bactrim DS] 800-160 mg tablet 1 tab PO BID Qty: 20 RF: 0 phenazopyridine [Pyridium] 200 mg tablet 200 mg PO TID 2 Days Qty: 6 RF: 0 Primary Care Provider: Care Physician,No Primary Referrals: Doretha Jarvis MD [STAFF PHYSICIAN] - 1 Week if not improving Care Physician,No Primary [Primary Care Provider] - Disposition Disposition: Home, Self Care
--- NOTE | 2021-02-06 04:47 | ED.RN ---
Medications given per order, normal saline, Toradol and Azo.
--- NOTE | 2021-02-06 05:29 | ED.RN ---
Rocephin started as directed.
--- NOTE | 2021-02-06 06:13 | ED.RN ---
Dilaudid and Zofran given as ordered. PT calling for a ride home.
[2021-02-06 06:22] VITALS: BP 180/78; PULSE 88; RESP 18; O2SAT 97
[2021-02-06 06:58] LABS: Mucous, Urine 0 SEEN /hpf (<or=2+)
[2021-02-06 07:11] LABS: Color, Urine Yellow (Yellow); Glucose, Dipstick NEGATIVE (Normal); Urine Bilirubin Dipstick Negative (Negative); Urine Clarity Sl Cldy (Clear)
[2021-02-06 07:12] LABS: Bacteria 4+ /hpf (None Seen); Ketone-Dipstick 15 mg/dl (Negative); Leukocyte Esterase-Dipstick 500 /ul (Negative); Nitrite-Dipstick Positive (Negative); Occult Blood-Urine 25 /ul (Negative); Protein-Dipstick 30 mg/dl (Negative); Red Blood Cells-Urine 0-5 SEEN /hpf (0-5); Squamous Epithelial Cells - UA 0-5 SEEN /hpf (5-10); Urine Urobilinogen Normal (Normal); White Blood Cells 25-50 SEEN /hpf (0-5)
[2021-02-06 07:13] LABS: Internal QC Validated? YES +Cl - CLEAR BKGD; Pregnancy, Urine Negative Negative
[2021-02-06 07:17] LABS: Absolute Lymphocyte Count 1.55 X10^3/uL (0.83-4.51); Absolute Neutrophil Count 4.8 X10^3/uL (2.0-7.7); Basophil# 0.02 X10^3/uL; Basophil% 0.3 % (0-1); Eosinophils% 2.9 % (0-5); Hemoglobin 9.9 g/dL (12.0-15.0); Lymphocyte # 1.55 X10^3/ul (0.83-4.51); Lymphocyte % 22.2 % (19-41); Mean Corpuscular Volume 76.7 fL (81-99); Monocyte# 0.41 X10^3/uL; Monocyte% 5.9 % (0-10); NRBC Flagged by Analyzer 0 % (0-5); Neutrophil # 4.79 X10^3/uL (2.7-7.7); Neutrophil % 68.4 % (47-70); Platelet Count 374 K/mm3 (150-450); RBC Distribution Width SD 46.8 fl (35.1-43.9)
[2021-02-06 07:49] LABS: BUN 10 mg/dL (7-18); BUN/Creat Ratio 20.8 RATIO (10-20); Calcium,Total 8.6 mg/dL (8.5-10.1); Creatinine, Serum 0.48 mg/dL (0.55-1.02); EST Glomerular Filtration Rate 152 mL/min (>60); Est Glom Filt Rate - Afr Amer 184 mL/min (>60); Estimated Creatinine Clearance 140.19 ml/min; Glucose 103 mg/dL (74-106); Sodium Level 140 mmol/L (136-145)
[2021-02-06 07:50] LABS: Anion Gap 5 (5-15); Chloride 108 mmol/L (98-107)
== END 2021-02-06 06:22 | disposition home or self-care (01) ==
PROVIDERS: Emergency Provider Emergency Medicine
DX: N10 Acute pyelonephritis (principal); E66.9 Obesity, unspecified; Z87.442 Personal history of urinary calculi
CPT/HCPCS: 80048; 81001; 81025; 85025; 87077; 87086; 87088; 87186; 99285; J7030; A4216; J2405

== ENCOUNTER → 2021-02-24 14:50 | Outpatient (CLI) | payer MEDICAID, SELFPAY ==
[2021-02-24 15:02] LABS: Mucous, Urine 0 SEEN /hpf (<or=2+); Red Blood Cells-Urine 0 SEEN /hpf (0-5); Squamous Epithelial Cells - UA 0 SEEN /hpf (5-10)
[2021-02-24 15:12] LABS: Color, Urine Yellow (Yellow); Glucose, Dipstick Normal (Normal); Ketone-Dipstick 5 mg/dl (Negative); Leukocyte Esterase-Dipstick 100 /ul (Negative); Nitrite-Dipstick Positive (Negative); Occult Blood-Urine 50 /ul (Negative); Protein-Dipstick 15 mg/dl (Negative); Urine Bilirubin Dipstick Negative (Negative); Urine Clarity Clear (Clear); Urine Urobilinogen Normal (Normal)
[2021-02-24 15:21] LABS: Bacteria 4+ /hpf (None Seen); White Blood Cells 5-10 SEEN /hpf (0-5)
== END ==
PROVIDERS: Referring Provider Nurse Practitioner Family; Visit Provider Nurse Practitioner Family
DX: N39.0 Urinary tract infection, site not specified (principal)
CPT/HCPCS: 81001; 87077; 87086; 87088; 87186

== ENCOUNTER → 2021-02-27 11:43 | Outpatient (CLI) | payer MEDICAID, SELFPAY ==
--- NOTE | 2021-02-27 11:46 | RAD_ITS ---
STUDY: X-RAY - ABDOMEN/PELVIS REASON FOR EXAM: Female, 40 years old. KIDNEY CALCULUS TECHNIQUE: Single AP view of the abdomen / pelvis. COMPARISON: Comparison is made with prior study dated 08/16/2020. FINDINGS: Opaque ingested tablets are seen in the cecum. There is a moderate amount of colonic fecal material. The visualized liver, spleen and kidneys are grossly normal in size and morphology. Normal soft tissue structures. Normal visualized osseous structures. RAD/Abdomen Single View IMPRESSION: No acute abnormality is seen. Electronically Signed: Kodi Wright MD at 15:44 EST , Service support ,
== END ==
PROVIDERS: Referring Provider Urology; Visit Provider Urology
DX: N20.0 Calculus of kidney (principal)
CPT/HCPCS: 74018

== ENCOUNTER 2021-03-20 17:50 | Outpatient (CLI) | payer MEDICAID, SELFPAY ==
--- NOTE | 2021-03-20 17:53 | CT_ITS ---
STUDY: CT ABDOMEN AND PELVIS WITHOUT CONTRAST REASON FOR EXAM: Female, 40 years old. Hematuria, recent uti,low back pain -- Hx:kidney stones -- surgery:gastric bypass,lithotripsy,cholecystectomy RADIATION DOSAGE (If Supplied By Facility): CTDIvol = ( 24.18 ) mGy, DLP = ( 1316.88 ) mGycm TECHNIQUE: Transaxial images were obtained from the dome of the diaphragm to the symphysis pubis without oral contrast, and without intravenous contrast. Sagittal and coronal images were reconstructed. Individualized dose optimization techniques were used for this CT. COMPARISON: Comparison is made with prior study dated 07/17/2020. FINDINGS: The visualized lung bases are unremarkable. The visualized portions of the heart are within normal limits. Normal liver. The patient is status post cholecystectomy. Normal spleen. Normal pancreas. Normal bilateral adrenal glands. There is a 7.7 mm nonobstructive calculus in the anterior upper pole calyx of the right kidney. Tiny nonobstructive calculus in the lower pole calyx of the left kidney. There is evidence of prior subtotal gastrectomy. Surgical anastomosis seen in the small bowel loop in the left upper quadrant. Normal colon. The appendix is visualized and appears normal. Normal abdominal aorta. Normal inferior vena cava. There is borderline retroperitoneal lymphadenopathy with enlarged nodes no greater than 10mm in the short axis diameter. The urinary bladder is empty. Normal abdominal wall. Normal osseous structures. CT/Abdomen/Pelvis without Cont IMPRESSION: 7.7 mm nonobstructive calculus in the upper pole calyx of the right kidney. The patient is status post cholecystectomy. Prior subtotal gastrectomy. Electronically Signed: Kodi Wright MD at 10:17 EST , Service support ,
== END 2021-03-20 23:59 | disposition short-term general hospital (02) ==
PROVIDERS: Visit Provider Urology
DX: N20.0 Calculus of kidney (principal); R31.9 Hematuria, unspecified; M54.50 Low back pain, unspecified; R10.9 Unspecified abdominal pain
CPT/HCPCS: 74176

== ENCOUNTER 2021-04-09 09:22 | Day surgery (SDC) | payer MEDICAID, SELFPAY ==
[2021-04-04 11:39] LABS: Anion Gap 6 (5-15); BUN 14 mg/dL (7-18); BUN/Creat Ratio 22.1 RATIO (10-20); Chloride 109 mmol/L (98-107); Creatinine, Serum 0.63 mg/dL (0.55-1.02); EST Glomerular Filtration Rate 110 mL/min (>60); Est Glom Filt Rate - Afr Amer 133 mL/min (>60); Glucose 101 mg/dL (74-106); Potassium 3.3 mmol/L (3.5-5.1); Sodium Level 142 mmol/L (136-145)
[2021-04-09] VITALS (10 sets, daily range): BP systolic 130–160; BP diastolic 90–107; PULSE 69–83; RESP 16–18; TEMP 36.2–36.8; O2SAT 92–100; BMI 54.3
--- NOTE | 2021-04-09 09:18 | PCM.OPRPT ---
Problems Associated Problem List Diagnoses (1) Renal calculus: (2) Flank pain with history of urolithiasis: (3) UTI (urinary tract infection): Report of Operation Date of Procedure: 04/09/21 Pre-Operative Diagnosis: Right renal calculus, right flank pain, urinary tract infections Post-Operative Diagnosis: Same Surgery/Procedure Performed:: Cystoscopy, attempted right ureteroscopy, right ureteral stent insertion Surgeon: Christina Malloy Type of Anesthesia: General Specimen's removed: None Description of Procedure: The patient is a 40-year-old female with a right renal calculus and flank pain with urinary tract infections intermittently. She presents for surgical intervention and informed consent was obtained. The patient was taken to the operating room and placed on the operating room table. Anesthesia monitored the head, neck, airway, IV access and vital signs throughout the case. Once anesthesia was appropriate ministered the patient was placed into dorsal lithotomy position was prepped and draped in usual sterile fashion. At this time the cystoscope was inserted through the urethra under direct visualization into the urinary bladder. Bilateral ureteral orifices were located on the area of the trigone. There were no bladder mucosal abnormalities identified. The right ureteral orifice was intubated with 2 separate 0.035 glide wires. A an attempt at passage of the flexible ureteroscope was unsuccessful as was an attempt at passing a ureteral reaccessed sheath. At this time the decision was made to place a stent. A 6 Pashto 24 cm JJ stent was placed over one of the wires with good positioning in the renal pelvis as well as the urinary bladder. The patient's bladder was emptied and the case was terminated. She was awakened and taken to the recovery room in good condition. There were no complications during this procedure. Grafts/Implants Used: 6 x 24 JJ stent Complications None Admit VTE Documentation VTE Present on Admission: Yes VTE Mechan Device Prophylaxis: SCD's VTE Pharm Prophylaxis ordered?: No Reason prophylaxis not ordered:: Treatment Not Indicated
--- NOTE | 2021-04-09 09:20 | PCM.DC ---
Discharge Instructions Diet Discharge Diet: No restrictions Activity Discharge Activity: Return to Normal Activity May resume sexual activity in: No Restrictions Dressing / Incision Call your doctor if you observe: Fever of 101 or Higher, Inability to urinate and Inability to have a bowel movement Follow Up Care Please Follow Up With: Christina Malloy MD When: Office will call to set up the next procedure for 2 weeks. Test Results: Test results from this visit will be discussed in further detail at your follow-up appointment, if applicable. Discharge Plan Admission Attending Provider: Christina Malloy Primary Care Provider: [place]io Londono Discharge Orders/Prescriptions Prescriptions: New phenazopyridine [Pyridium] 200 MG tablet 200 mg PO TID PRN PRN (Reason: Bladder Spasms) 7 Days Qty: 30 RF: 0 Continued omeprazole 40 mg Capsule,Delayed Release(Dr/Ec) 40 mg PO DAILY RF: 0 cephalexin 500 mg Capsule 500 mg PO TID RF: 0 loratadine [Claritin] 10 mg Tablet 10 mg PO DAILY RF: 0 bupropion HCl 300 mg tablet extended release 24 hr 300 mg PO DAILY RF: 0 Referrals / Follow Up: Indio Londono MD [Primary Care Provider] - Disposition Disposition (needs filled in before D/C Order can be placed): Home, Self Care
[2021-04-09 09:56] LABS: Internal QC Validated? YES +Cl - CLEAR BKGD; Pregnancy, Urine Negative Negative
[2021-04-09] MEDS: Lactated Ringers 1,000 ML 15 ML IV (10:11)
[2021-04-09 10:27] LABS: Hematocrit 33.6 % (37-47); Hemoglobin 10.1 g/dL (12.0-15.0); Mean Corp Hgb Conc 30.1 g/dL (32-36); Mean Corpuscular Hgb 22.1 pg (27.0-32.0); Mean Corpuscular Volume 73.7 fL (81-99); Mean Platelet Vol. 9.9 fl (6.2-12.0); Platelet Count 441 K/mm3 (150-450); RBC Distribution Width CV 15.9 % (11.6-14.6); RBC Distribution Width SD 42.3 fl (35.1-43.9); Red Blood Count 4.56 M/mm3 (4.2-5.4); White Blood Count 7.5 K/mm3 (4.4-11.0)
[2021-04-09] MEDS: oxyCODONE 5 MG Tablet 10 MG PO (13:44)
[2021-04-09] MEDS: Acetaminophen 325 MG Tablet 650 MG PO (13:45)
[2021-04-09] MEDS: Phenazopyridine 95 MG Tablet 190 MG PO (14:00)
== END 2021-04-09 23:59 | disposition home or self-care (01) ==
LOC: SDC 09:23 → AC 09:24
PROVIDERS: Anesthesiology; PCP Family Medicine; Referring Provider Urology; Visit Provider Urology
PROC: 0TJ98ZZ Inspection of Ureter, Via Natural or Artificial Opening Endoscopic (ICD-10-PCS; CPT 52352; principal; 2021-04-09 10:50)
DX: N20.0 Calculus of kidney (principal); N39.0 Urinary tract infection, site not specified
CPT/HCPCS: 52332; 00910; 36415; 76000; 80048; 81025; 85027; J7120; C2617; J2405

== ENCOUNTER 2021-04-24 12:48 | Day surgery (SDC) | payer MEDICAID, SELFPAY ==
[2021-04-24] VITALS (9 sets, daily range): BP systolic 122–152; BP diastolic 73–95; PULSE 63–84; RESP 16–18; TEMP 36.7–36.9; O2SAT 96–100; BMI 53.1
[2021-04-24 13:16] LABS: Internal QC Validated? YES +Cl - CLEAR BKGD; Pregnancy, Urine Negative Negative
[2021-04-24] MEDS: Lactated Ringers 1,000 ML 15 ML IV (13:40)
--- NOTE | 2021-04-24 14:48 | PCM.OPRPT ---
Problems Associated Problem List Diagnoses (1) Flank pain with history of urolithiasis: (2) Renal calculus: Report of Operation Date of Procedure: 04/24/21 Pre-Operative Diagnosis: right renal calculus Post-Operative Diagnosis: same, passed Surgery/Procedure Performed:: cystoscopy, right ureteroscopy, right ureteral stent removal Surgeon: Christina Malloy Type of Anesthesia: General Description of Procedure: The patient is a 40-year-old female with a history of recurrent nephrolithiasis who presents for removal of a right renal calculus. She has had a stent for ureteral dilation for the last 2 weeks. She has had significant pain over the course of the last week. She was taken to the operating room and placed on the operating room table. Anesthesia monitored the head, neck, airway, IV access and vital signs throughout the case. Once anesthesia was appropriate ministered the patient was placed into dorsal lithotomy position and was prepped and draped in usual sterile fashion. The cystoscope was inserted through the urethra under direct visualization and the bladder was emptied. One clot with gritty debris exited upon entry. At this time the right ureteral orifice and stent were observed. A 0.035 Glidewire was inserted alongside the stent and pushed into the renal pelvis is seen on fluoroscopy. The stent was then removed and a second wire was inserted. The flexible ureteroscope was inserted over one of the wires all the way into the renal pelvis without difficulty. The entire collecting system was visualized and no evidence of calculus was identified. Contrast was injected in retrograde fashion under fluoroscopic visualization to confirm no foreign bodies were identified and that all calyces were appropriately evaluated. At this time the entire length of the right ureter was directly visualized and no stones were identified. The ureteroscope and the remaining safety wire were then removed and the patient was awakened and taken to the recovery room in good condition. There were no complications during this procedure. Grafts/Implants Used: None Complications none Admit VTE Documentation VTE Present on Admission: Yes VTE Mechan Device Prophylaxis: SCD's VTE Pharm Prophylaxis ordered?: No Reason prophylaxis not ordered:: Treatment Not Indicated
--- NOTE | 2021-04-24 14:50 | PCM.DC ---
Discharge Instructions Diet Discharge Diet: No restrictions Activity Discharge Activity: Return to Normal Activity and May Not Drive (when taking narcotics) May resume sexual activity in: No Restrictions Dressing / Incision Call your doctor if you observe: Fever of 101 or Higher, Inability to urinate and Inability to have a bowel movement Follow Up Care Please Follow Up With: Christina Malloy MD When: in 2 weeks, call office for appt Test Results: Test results from this visit will be discussed in further detail at your follow-up appointment, if applicable. Discharge Plan Admission Attending Provider: Christina Malloy Primary Care Provider: [place] Londono Discharge Orders/Prescriptions Prescriptions: New oxycodone-acetaminophen [oxycodone-acetaminophen] 1 TABLET tablet 2 tab PO Q8H PRN PRN (Reason: Pain) 3 Days Qty: 8 RF: 0 cephalexin [cephalexin] 500 MG capsule 500 mg PO Q12 3 Days Qty: 6 RF: 0 Continued omeprazole 40 mg Capsule,Delayed Release(Dr/Ec) 40 mg PO DAILY RF: 0 loratadine [Claritin] 10 mg Tablet 10 mg PO DAILY RF: 0 bupropion HCl 300 mg tablet extended release 24 hr 300 mg PO DAILY RF: 0 phenazopyridine [Pyridium] 200 MG tablet 200 mg PO TID PRN PRN (Reason: Bladder Spasms) 7 Days Qty: 30 RF: 0 Discontinued oxybutynin chloride [Ditropan XL] 10 mg Tablet Extended Release 24hr 10 mg PO TID RF: 0 Referrals / Follow Up: Indio Londono MD [Primary Care Provider] - Disposition Disposition (needs filled in before D/C Order can be placed): Home, Self Care
[2021-04-24] MEDS: oxyCODONE 5 MG Tablet 10 MG PO (17:16)
[2021-04-24] MEDS: Acetaminophen 325 MG Tablet 650 MG PO (17:16)
[2021-04-24] MEDS: Phenazopyridine 95 MG Tablet 190 MG PO (17:16)
[2021-04-24] MEDS: Ketorolac 30 MG/ML Syringe IV (17:36)
== END 2021-04-24 23:59 | disposition home or self-care (01) ==
LOC: SDC 12:50 → AC 12:50
PROVIDERS: Anesthesiology; PCP Family Medicine; Referring Provider Urology; Visit Provider Urology
PROC: 0TJ98ZZ Inspection of Ureter, Via Natural or Artificial Opening Endoscopic (ICD-10-PCS; CPT 52352; principal; 2021-04-24 14:20)
DX: N20.0 Calculus of kidney (principal); F31.9 Bipolar disorder, unspecified; I10 Essential (primary) hypertension; Q63.8 Other specified congenital malformations of kidney; Z79.899 Other long term (current) drug therapy; F41.9 Anxiety disorder, unspecified; L40.9 Psoriasis, unspecified; K21.9 Gastro-esophageal reflux disease without esophagitis; Z98.84 Bariatric surgery status
CPT/HCPCS: 52310; 00918; 76000; 81025; J7120; J2405

== ENCOUNTER → 2021-10-02 | Outpatient (CLI) | payer MEDICAID, SELFPAY ==
[2021-10-02 10:18] LABS: Absolute Lymphocyte Count 1.87 X10^3/uL (0.83-4.51); Absolute Neutrophil Count 5.5 X10^3/uL (2.0-7.7); Basophil# 0.03 X10^3/uL; Basophil% 0.4 % (0-1); Eosinophil# 0.16 X10^3/uL; Hematocrit 33.5 % (37-47); Hemoglobin 9.6 g/dL (12.0-15.0); Lymphocyte # 1.87 X10^3/ul (0.83-4.51); Lymphocyte % 23.8 % (19-41); Mean Corp Hgb Conc 28.7 g/dL (32-36); Mean Corpuscular Hgb 20.4 pg (27.0-32.0); Mean Corpuscular Volume 71.3 fL (81-99); Mean Platelet Vol. 10.1 fl (6.2-12.0); Monocyte# 0.32 X10^3/uL; Monocyte% 4.1 % (0-10); NRBC Flagged by Analyzer 0 % (0-5); Neutrophil # 5.45 X10^3/uL (2.7-7.7); Neutrophil % 69.4 % (47-70); Platelet Count 423 K/mm3 (150-450); RBC Distribution Width CV 18.3 % (11.6-14.6); RBC Distribution Width SD 45.9 fl (35.1-43.9); White Blood Count 7.9 K/mm3 (4.4-11.0)
[2021-10-02 10:36] LABS: AST(SGOT) 14 U/L (15-37); Alanine Aminotransfer ALT/SGPT 18 U/L (13-56); Albumin, Serum 3.4 g/dL (3.2-5.0); Alkaline Phosphatase 123 U/L (45-117); Anion Gap 6 (5-15); BUN 14 mg/dL (7-18); BUN/Creat Ratio 21.6 RATIO (10-20); Calcium,Total 8.9 mg/dL (8.5-10.1); Chloride 108 mmol/L (98-107); Cholesterol 177 mg/dL (200); Creatinine, Serum 0.65 mg/dL (0.55-1.02); EST Glomerular Filtration Rate 107 mL/min (>60); Est Glom Filt Rate - Afr Amer 129 mL/min (>60); Ferritin 3 ng/mL (8-252); Globulin 3.3 g/dL (2.2-4.2); Glucose 100 mg/dL (74-106); High Density Lipoprotein 48 mg/dL; Iron 23 ug/dL (50-170); Iron Binding Capacity,Total 449 ug/dL (250-450); Protein, Total 6.7 g/dL (6.4-8.2); Sodium Level 141 mmol/L (136-145); Triglycerides 72 mg/dL; Very Low Density Lipoprotein 14 mg/dL (5-40)
== END | disposition home or self-care (01) ==
LOC: MFPLAB 08:39
PROVIDERS: PCP Family Medicine; Visit Provider Nurse Practitioner Family
DX: Z13.220 Encounter for screening for lipoid disorders (principal); D50.9 Iron deficiency anemia, unspecified; I10 Essential (primary) hypertension
CPT/HCPCS: 36415; 80053; 80061; 82728; 83540; 83550; 85025

== ENCOUNTER → 2022-03-26 | Outpatient (CLI) | payer MEDICAID, SELFPAY ==
[2022-04-01 22:09] LABS: HPV APTIMA, High Risk Negative (Negative)
== END | disposition home or self-care (01) ==
PROVIDERS: PCP Family Medicine; Referring Provider Obstetrics & Gynecology; Visit Provider Obstetrics & Gynecology
DX: Z12.4 Encounter for screening for malignant neoplasm of cervix (principal)
CPT/HCPCS: 87624; 88175; G0145

== ENCOUNTER → 2022-04-30 | Outpatient (CLI) | payer MEDICAID, SELFPAY ==
--- NOTE | 2022-04-30 07:28 | BI_ITS ---
MAMMOGRAPHY - BILATERAL SCREENING REASON FOR EXAM: Female, 41 years old. Routine annual screening examination. PERTINENT HISTORY: Non-contributory. TECHNIQUE: Digital bilateral breast bridget (3D mammographic acquisition) in the CC and MLO projections. 2-D mediolateral oblique (MLO) and craniocaudad (CC) views of both breasts were obtained. CAD: Full Field Digital Mammography with Computer Added Detection was performed. COMPARISON: None. Baseline examination. FINDINGS: Breast Composition: There are scattered areas of fibroglandular density. There are no dominant masses or suspicious calcifications. Small benign-appearing bilateral axillary lymph nodes. No other significant abnormalities are identified. BI/SCRN MAMM (CAD)W/BRIDGET BILAT IMPRESSION: Negative screening mammogram. Yearly followup mammogram recommended. (A) ASSESSMENT CATEGORY: BIRADS Category 2: Benign. A letter regarding these results will be sent to the patient by the facility within 30 days. Approximately 10% of breast cancers are not detected by mammography. A normal mammogram should not delay biopsy of a clinically suspicious abnormality. [id number] Electronically Signed: Kodi Wright MD at 8:47 EST ,
== END | disposition home or self-care (01) ==
LOC: OPBI 07:27
PROVIDERS: PCP Family Medicine; Referring Provider Family Medicine; Visit Provider Family Medicine
DX: Z12.31 Encounter for screening mammogram for malignant neoplasm of breast (principal)
CPT/HCPCS: 77063; 77067

== ENCOUNTER → 2023-04-18 | Outpatient (CLI) | payer MEDICAID, SELFPAY ==
--- OUTSIDE RECORDS SUMMARY | 2023-04-18 07:33 | XMS RPT_ITS | CCD ---
Author Name Unknown Address [address] [place] [address] Organization [facility] Care Team Providers Care Uranium Processing Supervisor Name Role Phone AMEE LOBO (PT) Attending Unavailable BONNIE SCALES Referring Unavailable VERONICA FARRELL D.O. Referring Unavail able Veronica Farrell Primary Care Unavailable Karen Mcclendon Attending Unavailable Veronica Farrell DO Primary Care Provider [phone] Veronica Farrell DO Primary Care Provider [phone] VERONICA FARRELL Attending Unavailable VERONICA FARRELL Primary Care Unavailable Allergies Allergy Classification Reported Allergen(s) Allergy Type Date of Onset Reaction(s) Facility (3 sources) Morphine; Translations: [MORPHINE] Drug Allergy 09-30-2015 [facility] (3 sources) topiramate; Translations: [TOPIRAMATE] Drug Allergy 09-15-2014 [facility] Medications Current Medications Medication Drug Class(es) Dates Sig (Normalized) Sig (Original) 24 hr buPROPion hydrochloride 300 mg extended release oral tablet (3 sources) Aminoketone Start: 07-02-2022 End: 04-11-2023 take 1 tablet by mouth once daily buPROPion XL (Wellbutrin XL) 300 MG 24 hr tablet Take 1 tablet (300 mg) by mouth daily. 90 tablet 3 04/11/2023 Active ciclopirox 80 mg/ml topical solution (1 source) Start: 04-11-2023 ciclopirox (Penlac) 8 % solution Indications: Onychomycosis Apply topically Nightly. 6 mL 3 04/11/2023 Active hydroCHLOROthiazide 12.5 mg / lisinopril 20 mg oral tablet (3 sources) Thiazide Diuretic, Angiotensin Converting Enzyme Inhibitor Start: 01-31-2023 End: 04-11-2023 take 2 tablets by mouth once daily lisinopril-hydroCH LOROthiazide 20-12.5 MG tablet Indications: Benign essential HTN Take 2 tablets by mouth daily. 180 tablet 3 04/11/2023 Active Problems Active Problems Problem Classification Problem Date Documented Da te Episodic/Chronic Alcohol-related disorders (2 sources) Alcohol dependence; Translations: [Alcohol dependence, in remission] Onset: 09-19-2016 12-28-2021 Chronic Essential hypertension (3 sources) Benign essential hypertension; Translations: [Essential (primary) hypertension] Onset: 04-11-2023 04-11-2023 Chronic Miscellaneous mental health disorders (5 sources) Primary insomnia; Translations: [Primary insomnia] Onset: 12-21-2015 12-28-2021 Chronic Mood disorders (2 sources) Moderate major depression, single episode; Translations: [Major depressive disorder, single episode, moderate] Onset: 12-21-2015 12-28-2021 Chronic Mycoses (1 source) Onychomycosis; Translations: [Tinea unguium] 04-11-2023 Episodic Other gastrointestinal disorders (2 sources) Intestinal malabsorption; Translations: [Intestinal malabsorption, unspecified] Onset: 08-23-2015 12-28-2021 Chronic Other non-traumatic joint disorders (1 source) Pain in right hip joint; Translations: [Pain in right hip] 04-11-2023 Episodic Other non-traumatic joint disorders (2 sources) Pain in right hip; Translations: [Pain in right hip] Onset: 04-11-2023 Episodic Other nutritional; endocrine; and metabolic disorders (2 sources) Obesity; Translations: [Obesity, unspecified] Onset: 08-23-2015 12-28-2021 Chronic Other screening for suspected conditions (not mental disorders or infectious disease) (9 sources) Patient encounter status; Translations: [Encounter for screening for diabetes mellitus] Onset: 04-11-2023 04-11-2023 Episodic Substance-related disorders (2 sources) Opioid dependence in remission; Translations: [Opioid dependence, in remission] Onset: 09-19-2016 12-28-2021 Chronic Past or Other Problems Problem Classification Problem Date Documented Da te Episodic/Chronic Biliary tract disease (2 sources) Cholecystitis; Translations: [Cholecystitis, unspecified] Onset: 08-24-2015 12-28-2021 Episodic Calculus of urinary tract (2 sources) Kidney stone; Translations: [Calculus of kidney] Onset: 12-21-2015 12-28-2021 Episodic Nutritional deficiencies (2 sources) Deficiency of multiple nutrient elements; Translations: [Deficiency of multiple nutrient elements] Onset: 08-23-2015 12-28-2021 Episodic Results Test Name Value Interpretation Reference Range Facil ity Vital Signs Date Time Vital Sign Value Performing Clinician Chel[facility] 04-11-2023 09:40-0500 Body height 165.1 cm Veronica Farrell DO Work Phone: [facility] 04-11-2023 09:40-0500 Body mass index (BMI) [Ratio] 42.43 kg/m2 Veronica Farrell [employer] Work Phone: [facility] 04-11-2023 09:40-0500 Body weight 115.67 kg Veronica Farrell DO Work Phone: [facility] 04-11-2023 09:40-0500 Diastolic blood pressure 72 mm[Hg] Veronica Farrell DO Work Phone: [facility] 04-11-2023 09:40-0500 Heart rate 76 /min Veronica Farrell DO Work Phone: [facility] 04-11-2023 09:40-0500 SaO2% (BldA) [Mass fraction] 98 % Veronica Farrell [employer] Work Phone: [facility] 04-11-2023 09:40-0500 Systolic blood pressure 118 mm[Hg] Veronica Farrell DO Work Phone: [facility] Encounters Encounter Date Encounter Type Care Provider Facility Start: 04-11-2023 End: 04-11-2023 ambulatory VERONICA FARRELL [facility] Start: 04-11-2023 End: 04-11-2023 Patient encounter status Veronica Farrell DO Work Phone: [facility] Start: 04-11-2023 End: 04-11-2023 Periodic preventive med est patient 40-64yrs Veronica Farrell DO Work Phone: [facility] Procedures Date Procedure Procedure Detail Performing Clinician Start: 04-30-2022 Mammography Veronica Farrell DO Work Phone: Plan of Treatment Date Care Activity Detail Author Start: 2040 RSV Immunization age d 60 or older (1 - 1-dose 60+ series) RSV Immunization aged 60 or older (1 - 1-dose 60+ series) [facility] Start: 2030 Zoster Vaccines (1 of 2) Zoster Vacc travis (1 of 2) [facility] Start: 03-17-2024 DTaP/Tdap/Td Vaccine s (2 - Td or Tdap) DTaP/Tdap/Td Vaccines (2 - Td or Tdap) [facility] Start: 04-30-2023 Screening for malign ant neoplasm of breast Mammogram [facility] Start: 04-11-2023 End: 04-11-2024 CBC panel - Blood by Automated count CBC Lab Routine Benign essential HTN Expected: 04/11/2023 (Approximate), Expires: 04/11/2024 [facility] Immunizations Immunization Date Immunization Notes Care Provider Fa devendra 12-21-2015 influenza, injectabl e, quadrivalent, contains preservative Veronica Farrell DO Work Phone: [facility] 12-21-2015 influenza virus vacc ine, unspecified formulation Veronica Farrell DO Work Phone: [facility] 01-05-2015 influenza virus vacc ine, unspecified formulation Veronica Farrell DO Work Phone: [facility] 01-14-2014 influenza virus vacc ine, unspecified formulation Veronica Farrell DO Work Phone: [facility] Payers Date Payer Category Payer Unknown [id number] Unknown Social History Date Type Detail Facility Tobacco smoking status NHIS Never smoked tobacco [facility] Start: 03-01-2022 End: 04-11-2023 Alcohol intake Ex-drinker (finding) [facility] Start: 03-01-2022 History of Social function [facility] Start: 03-01-2022 Tobacco use panel [facility] Start: 03-01-2022 Alcohol Comment Drank 750ml of Vodka 4-5 times a week for several years [facility] Start: 1980 Sex Assigned At Female S [facility] Start: 01-03-2022 Gender identity Identifies as female gender (finding) [facility] Start: 01-03-2022 Sexual orientation Heterosexual (dipika goodwin) [facility] History of Present illness Narrative 04-11-2023 Veronica Farrell, DO - 04/11/2023 9:40 AM EST Note Date & Type Note Facility 04-11-2023 History of Presen t illness Narrative Images from the original note were not included. [facility] [address] [facility] [phone] Visit type: Established Patient Reason for Visit: Med Refill (Pt declines flu shot ) Assessment and Plan Diagnoses and all orders for this visit: Well adult exam UTD on immunizations. Encouraged avoidance of tobacco and alcohol, safe sexual practice. Healthy diet with plenty of fruits, vegetables, whole grains, and lean proteins. Exercise 3-5 times per week for 30-45 minutes. Wear seatbelts. Wear sunscreen. Reviewed age appropriate screening tests. Right hip pain - External referral to Physical Therapy; Future Ok for tylenol Refer to PT Screening for diabetes mellitus - Hemoglobin A1c; Future Benign essential HTN - lisinopril-hydroCHLOROthiazide 20-12.5 MG tablet; Take 2 tablets by mouth daily. - Comprehensive metabolic panel; Future - CBC; Future Chronic, well controlled on current medications. Continue. Primary insomnia - traZODone (Desyrel) 50 MG tablet; Take 0.5 tablets (25 mg) by mouth Nightly. New problem, worsening, start trazodone prn Will take 1/2 tab Screening mammogram for breast cancer - Bilateral screening mammogram with tomosynthesis; Future Screening, lipid - Lipid panel; Future Other orders - buPROPion XL (Wellbutrin XL) 300 MG 24 hr tablet; Take 1 tablet (300 mg) by mouth daily. - loratadine (Claritin) 10 MG tablet; Take 1 tablet (10 mg) by mouth daily. - omeprazole (PriLOSEC) [address] capsule; Take 1 capsule (40 mg) by mouth daily. Onychomycosis -penlac rx sent No follow-ups on file. Subjective HPI Louis is a 42 yo wf w a pmh of htn, depression, gerd and hx of alcoholism who presents for follow up She is sober and doing well Recently had teeth removed and is having dentures placed next week Doesn't sleep well Having trouble bc of her leg Hurts to lay on her hip, right side Sits all day Stretching does seem to help Has fungus on her great toe on right foot No other toes Review of Systems Constitutional: Negative for appetite change, chills, fatigue and fever. HENT: Negative for congestion, ear pain, hearing loss, postnasal drip, sore throat and trouble swallowing. Eyes: Negative for discharge, itching and visual disturbance. Respiratory: Negative for cough, shortness of breath and wheezing. Cardiovascular: Negative for chest pain, palpitations and leg swelling. Gastrointestinal: Negative for abdominal pain, constipation, diarrhea, nausea and vomiting. Endocrine: Negative for cold intolerance, heat intolerance, polydipsia, polyphagia and polyuria. Genitourinary: Negative for difficulty urinating, frequency, urgency, vaginal bleeding, vaginal discharge and vaginal pain. Musculoskeletal: Positive for arthralgias. Negative for back pain, joint swelling and myalgias. Skin: Negative for color change, rash and wound. Neurological: Negative for dizziness, tremors, seizures, speech difficulty, weakness, numbness and headaches. Hematological: Negative for adenopathy. Does not bruise/bleed easily. Psychiatric/Behavioral: Positive for sleep disturbance. Negative for agitation, decreased concentration and dysphoric mood. The patient is not nervous/anxious. Allergies Allergen Reactions Morphine Other reaction(s): Other: See Comments Other reaction(s): Other: See Comments headaches headaches Topiramate Other reaction(s): Other: See Comments Kidney stones Kidney stones Outpatient Medications Prior to Visit Medication Sig Dispense Refill buPROPion XL (Wellbutrin XL) 300 MG 24 hr tablet Take 1 tablet (300 mg) by mouth daily. 90 tablet 2 lisinopril-hydroCHLOROthiazide 20-12.5 MG tablet TAKE 2 TABLETS BY MOUTH EVERY DAY 180 tablet 0 loratadine (Claritin) 10 MG tablet Take 1 tablet (10 mg) by mouth daily. 90 tablet 2 omeprazole (PriLOSEC) [address] capsule Take 1 capsule (40 mg) by mouth daily. 90 capsule 1 No facility-administered medications prior to visit. Past Medical History: Diagnosis Date Allergic rhinitis Anemia Anxiety Deficiency of multiple nutrient elements Depression Gastritis GERD (gastroesophageal reflux disease) Hypertension Insomnia due to mental disorder or depression Intestinal malabsorption Kidney stone Migraine Obesity Obstructive sleep apnea Peptic ulceration Substance abuse (CMS/HCC) ([facility]) Social History Socioeconomic History Marital status: Tobacco Use Smoking status: Never Smokeless tobacco: Never Substance and Sexual Activity Alcohol use: Not Currently Comment: Drank 750ml of Vodka 4-5 times a week for several years Drug use: Not Currently Frequency: 4.0 times per week Types: Oxycodone Sexual activity: Yes Partners: Male control/protection: Implant Past Surgical History: Procedure Laterality Date BARIATRIC SURGERY 11.06.09 CHOLECYSTECTOMY 08/11/15 [facility] CHOLECYSTECTOMY DENTAL SURGERY GASTRIC BYPASS [facility]- [facility] 2009 HERNIA REPAIR 11.06.09 - Hiatal LITHOTRIPSY 11/2012,02/2013 Past Surgical History: Procedure Laterality Date BARIATRIC SURGERY 11.06.09 CHOLECYSTECTOMY 08/11/15 [facility] CHOLECYSTECTOMY DENTAL SURGERY GASTRIC BYPASS LR[facility]GB- [facility] 2009 HERNIA REPAIR 11.06.09 - Hiatal LITHOTRIPSY 11/2012,02/2013 Family History Problem Relation Name Age of Onset High Blood Pressure Father Claudio Alcohol abuse Father Claudio Hypertension Father Claudio Hyperlipidemia Father Claudio Vision loss Father Claudio Depression Mother Mia Miscarriages / Stillbirths Mother Mia Vision loss Mother Mia Depression Sister Kayley Drug abuse Sister Kayley Alcohol abuse Sister Kayley Vision loss Sister Kayley Alcohol abuse Brother Keith Depression Brother Keith Vision loss Brother Keith Objective BP 118/72 Pulse 76 Ht 5' 5 (1.651 m) Wt 255 lb (116 kg) SpO2 98% BMI 42.43 kg/m Physical Exam Vitals and nursing note reviewed. Constitutional: General: She is not in acute distress. Appearance: Normal appearance. She is not ill-appearing. HENT: Head: Normocephalic and atraumatic. Right Ear: Tympanic membrane, ear canal and external ear normal. Left Ear: Tympanic membrane, ear canal and external ear normal. Nose: Nose normal. Mouth/Throat: Mouth: Mucous membranes are dry. Eyes: Extraocular Movements: Extraocular movements intact. Conjunctiva/sclera: Conjunctivae normal. Pupils: Pupils are equal, round, and reactive to light. Cardiovascular: Rate and Rhythm: Normal rate and regular rhythm. Heart sounds: No murmur heard. No friction rub. Pulmonary: Effort: Pulmonary effort is normal. No respiratory distress. Breath sounds: Normal breath sounds. No stridor. No wheezing, rhonchi or rales. Chest: Chest wall: No tenderness. Abdominal: General: Abdomen is flat. Bowel sounds are normal. There is no distension. Palpations: Abdomen is soft. There is no mass. Tenderness: There is no abdominal tenderness. There is no guarding or rebound. Hernia: No hernia is present. Musculoskeletal: General: Normal range of motion. Cervical back: Normal range of motion and neck supple. Right lower leg: No edema. Left lower leg: No edema. Skin: General: Skin is warm and dry. Neurological: General: No focal deficit present. Mental Status: She is alert and oriented to person, place, and time. Psychiatric: Mood and Affect: Mood normal. Behavior: Behavior normal. Thought Content: Thought content normal. Judgment: Judgment normal. Data Reviewed POCT: Labs: Imaging/Testing: Chart Clean Up: Medications Discontinued During This Encounter Medication Reason buPROPion XL (Wellbutrin XL) 300 MG 24 hr tablet Reorder loratadine (Claritin) 10 MG tablet Reorder omeprazole (PriLOSEC) [address] capsule Reorder lisinopril-hydroCHLOROthiazide 20-12.5 MG tablet Reorder Veronica Farrell DO 04/11/2023 12:17 PM documented in this encounter [facility] Telephone encounter Note 11-05-2022 Telephone Encounter - Lilliam Chilel MA - 11/05/2022 12:21 PM EDT Note Date & Type Note Facility 11-05-2022 Telephone encount er Note Recent Visits Date Type Provider Dept 03/01/22 Office Visit Veronica Farrell DO [facility] Showing recent visits within past 365 days and meeting all other requirements Future Appointments No visits were found meeting these conditions. Showing future appointments within next 90 days and meeting all other requirements Requested Prescriptions Pending Prescriptions Disp Refills loratadine (Claritin) 10 MG tablet 90 tablet 2 Sig: Take 1 tablet (10 mg) by mouth daily. Verified pharmacy: yes Verified day(s) supplied: yes Verified refill(s) needed (previous prescription showing no refills in chart): Yes [facility] Note 11-05-2022 Telephone Encounter - Lilliam Chilel MA - 11/05/2022 12:21 PM EDT Note Date & Type Note Facility 11-05-2022 Miscellaneous Notes Formattin g of this note is different from the original. Recent Visits Date Type Provider Dept 03/01/22 Office Visit Veronica Farrell DO [facility] Showing recent visits within past 365 days and meeting all other requirements Future Appointments No visits were found meeting these conditions. Showing future appointments within next 90 days and meeting all other requirements Requested Prescriptions Pending Prescriptions Disp Refills loratadine (Claritin) 10 MG tablet 90 tablet 2 Sig: Take 1 tablet (10 mg) by mouth daily. Verified pharmacy: yes Verified day(s) supplied: yes Verified refill(s) needed (previous prescription showing no refills in chart): Yes documented in this encounter [facility] Evaluation note Note Date & Type Note Facility documented in this encounter [facility] Summary Purpose Family History No Family History Records FoundNo Family History Records FoundNo Family History Records Found Advance Directives No Advanced Directives Records FoundNo Advanced Directives Records FoundNo Advanced Directives Records Found Reason for Referral Specialty Diagnoses / Procedures Referred By Contac t Referred To Contact Physical Therapy Diagnoses Right hip pain Procedures AR OFFICE/OUTPATIENT NEW HIGH MDM 60 MINUTES Veronica Farrell DO [address] [place] [address] Referral ID Status Reason Start Date Expiration Date Visits Requested Visits Authorized [id number] Pending Review Eval and Treat 04/11/2023 10/08/2023 99 99 Additional Source Comments INFORMATION SOURCE (unrecogn ized section and content) DATE CREATED AUTHOR AUTHOR'S ORGANIZ ATION 06/24/2018 [facility] DATE CREATED AUTHOR AUTHOR'S ORGANIZ ATION 04/13/2023 [facility] Reason for Visit (unrecogniz ed section and content) Reason Comments Med Refill Pt declines flu shot Care Teams (unrecognized sec tion and content) Uranium Processing Supervisor Relationship Specialty Start Date End Date Veronica Farrell DO [address] [place] [address] PCP - General 09/15/14 FOR RECORDS PERTAINING TO PATIENTS WHO ARE OR HAVE BEEN ENROLLED IN A CHEMICAL DEPENDENCY/SUBSTANCEABUSE PROGRAM, SOME INFORMATION MAY BE OMITTED. This clinical summary was aggregated from multiple sources. Caution should be exercised in using it in the provision of clinical care. This summary normalizes information from multiple sources, and as a consequence, information in this document may materially change the coding, format and clinical context of patient data. In addition, data may be omitted in some cases. CLINICAL DECISIONS SHOULD BE BASED ON THE PRIMARY CLINICAL RECORDS. [facility] [employer] [facility]. provides no warranty or guarantee of the accuracy or completeness of information in this document.
[2023-04-18 08:02] LABS: Hematocrit 35.1 % (37-47); Hemoglobin 10.3 g/dL (12.0-15.0); Mean Corp Hgb Conc 29.3 g/dL (32-36); Mean Corpuscular Hgb 21.8 pg (27.0-32.0); Mean Corpuscular Volume 74.2 fL (81-99); Mean Platelet Vol. 9.8 fl (6.2-12.0); Platelet Count 424 K/mm3 (150-450); RBC Distribution Width CV 15.7 % (11.6-14.6); Red Blood Count 4.73 M/mm3 (4.2-5.4)
[2023-04-18 08:31] LABS: Hemoglobin A1c 5.4 % (3.8-5.6)
[2023-04-18 09:02] LABS: ALB/GLOB Ratio 1.1 RATIO (0.9-2.4); AST(SGOT) 11 U/L (15-37); Alanine Aminotransfer ALT/SGPT 22 U/L (13-56); Albumin, Serum 3.7 g/dL (3.2-5.0); Alkaline Phosphatase 106 U/L (45-117); Anion Gap 2 (5-15); BUN 23 mg/dL (7-18); BUN/Creat Ratio 29.3 RATIO (10-20); Calcium,Total 9.3 mg/dL (8.5-10.1); Chloride 107 mmol/L (98-107); Cholesterol 207 mg/dL (200); Creatinine, Serum 0.79 mg/dL (0.55-1.02); EST Glomerular Filtration Rate 85 mL/min (>60); Est Glom Filt Rate - Afr Amer 103 mL/min (>60); Ferritin 4 ng/mL (8-252); Globulin 3.5 g/dL (2.2-4.2); Glucose 106 mg/dL (74-106); High Density Lipoprotein 61 mg/dL; Iron 24 ug/dL (50-170); Iron Binding Capacity,Total 468 ug/dL (250-450); PERCENT IRON SATURATION 5.1 % (15.0-55.0); Potassium 3.5 mmol/L (3.5-5.1); Protein, Total 7.2 g/dL (6.4-8.2); Sodium Level 139 mmol/L (136-145); Triglycerides 61 mg/dL; Very Low Density Lipoprotein 12 mg/dL (5-40)
== END | disposition home or self-care (01) ==
LOC: LAB 07:31
PROVIDERS: PCP Family Medicine; Referring Provider Family Medicine; Visit Provider Family Medicine
DX: D50.8 Other iron deficiency anemias (principal); I10 Essential (primary) hypertension; Z13.1 Encounter for screening for diabetes mellitus; Z13.220 Encounter for screening for lipoid disorders
CPT/HCPCS: 36415; 80053; 80061; 82728; 83036; 83540; 83550; 85027

== ENCOUNTER → 2024-03-29 | Outpatient (CLI) | payer BC, SELFPAY ==
--- NOTE | 2024-03-29 07:33 | BI_ITS ---
MAMMOGRAPHY - BILATERAL SCREENING REASON FOR EXAM: Female, 43 years old. Routine annual screening examination. PERTINENT HISTORY: Non-contributory. TECHNIQUE: Digital bilateral breast bridget (3D mammographic acquisition) in the CC and MLO projections. 2-D mediolateral oblique (MLO) and craniocaudad (CC) views of both breasts were obtained. CAD: Full Field Digital Mammography with Computer Added Detection was performed. COMPARISON: Comparison is made with prior study dated April 30, 2022. FINDINGS: Breast Composition: There are scattered areas of fibroglandular density. There are no dominant masses or suspicious calcifications. Stable small bilateral axillary lymph nodes. No other significant abnormalities are identified. There has been no significant change since the prior study. BI/SCRN MAMM (CAD)W/BRIDGET BILAT IMPRESSION: Stable bilateral screening mammogram. Yearly follow-up mammogram recommended. (A) ASSESSMENT CATEGORY: BIRADS Category 2: Benign. A letter regarding these results will be sent to the patient by the facility within 30 days. Approximately 10% of breast cancers are not detected by mammography. A normal mammogram should not delay biopsy of a clinically suspicious abnormality. [id number] Electronically Signed: Kodi Wright MD at 8:52 EST ,
== END | disposition home or self-care (01) ==
PROVIDERS: PCP Family Medicine; Referring Provider Obstetrics & Gynecology; Visit Provider Obstetrics & Gynecology
DX: Z12.31 Encounter for screening mammogram for malignant neoplasm of breast (principal)
CPT/HCPCS: 77063; 77067

== ENCOUNTER → 2025-01-27 | Outpatient (CLI) | payer BC, SELFPAY ==
--- OUTSIDE RECORDS SUMMARY | 2025-01-26 19:10 | XMS RPT_ITS | CCD ---
Author Organization [facility] Care Team Providers Care Respiratory Services Manager Name Role Phone NURIA LOBO (PT) Attending Unavailable MICHAEL SCALES Referring Unavailable VERONICA FARRELL D.O. Referring Unavail able Veronica Farrell Primary Care Unavailable Karen Mcclendon Attending Unavailable Dr. Indio Londono Primary Care Provider Dr. Indio Londono Referring Provider Dr. Lilliam Patton Attending Provider YANCY Garay Attending Provider Dr. Indio Londono Primary Care Provider Dr. Indio Londono Referring Provider Dr. Lilliam Patton Attending Provider Veronica Farrell DO Primary Care Provider Veronica Farrell DO Primary Care Provider Roberta Scott Attending Unavailable Roberta Scott Attending Unavailable Lilliam Patton Attending UnavailLilliam Camargo Referring Unavailabl e VERONICA FARRELL Primary Care Unavailable VERONICA FARRELL Primary Care Unavailable VERONICA FARRELL Referring Unavailable Michael Glover Attending Unavailable VERONICA FARRELL Attending Unavailable VERONICA FARRELL Primary Care Unavailable Allergies Allergy Classification Reported Allergen(s) Allergy Type Date of Onset Reaction(s) Facility (11 sources) Morphine; Translations: [MORPHINE] Drug Allergy 09-30-2015 Other [facility] Repository (11 sources) topiramate; Translations: [TOPIRAMATE] Drug Allergy 09-15-2014 Other [facility] Repository Medications Current Medications Medication Drug Class(es) Dates Sig (Normalized) Sig (Original) benzocaine 200 mg/ml topical cream (8 sources) Standardized Chemical Allergen Start: 2 End: 2 Benzocaine (Benzodent) 20 % cream Active 1 APPLIC MUCOUS MEM 2 to 3 times per day September 24, 2021 5:31am use after food and/or drink and/or oral hygiene Etonogestrel (Nexplanon) 68 mg implant (3 sources) Start: 3 Etonogestrel (Nexplanon) 68 mg implant Active 1 IMPLANT subdermal ONCE March 26, 2022 12:00am as a single dose ferrous sulfate 325 mg oral tablet (1 source) Start: 4 End: 5 take 1 tablet by mouth once daily at breakfast ferrous sulfate 325 (65 Fe) MG tablet Take 1 tablet (325 mg) by mouth daily (with breakfast). 30 tablet 11 06/02/2023 06/01/2024 Active hydroCHLOROthiazide 25 mg oral tablet (4 sources) Thiazide Diuretic Start: 5 End: 6 take 1 tablet by mouth once daily hydroCHLOROthiazide (HYDRODiuril) 25 MG tablet Take 1 tablet (25 mg) by mouth daily. 90 tablet 3 06/01/2024 11/23/2025 Active lisinopril 40 mg oral tablet (4 sources) Angiotensin Converting Enzyme Inhibitor Start: 5 End: 6 take 1 tablet by mouth once daily lisinopril 40 MG tablet Take 1 tablet (40 mg) by mouth daily. 90 tablet 3 06/01/2024 11/23/2025 Active loratadine 10 mg oral tablet (11 sources) Start: 2 End: 4 take 1 tablet by mouth once daily loratadine (Claritin) 10 MG tablet Take 1 tablet (10 mg) by mouth daily. 90 tablet 3 04/11/2023 Active omeprazole 20 mg delayed release oral tablet (12 sources) Proton Pump Inhibitor Start: 5 End: 5 take 1 tablet by mouth once daily before breakfast omeprazole OTC (PriLOSEC OTC) 20 MG EC tablet Take 1 tablet (20 mg) by mouth every morning (before breakfast). Do not crush, chew, or split. 90 tablet 3 06/01/2024 Active Start: 04-04-2021 End: 06-01-2024 take 1 capsule by mouth once daily omeprazole (PriLOSEC) [address] capsule Take 1 capsule (40 mg) by mouth daily. 90 capsule 3 04/11/2023 06/01/2024 Discontinued (Med list cleanup) Completed/Discontinued Medications Medication Drug Class(es) Dates Sig (Normalized) Sig (Original) acetaminophen 325 mg / HYDROcodone bitartrate 5 mg oral tablet (4 sources) Opioid Agonist Start: 12-17-2017 End: 12-20-2017 Hydrocodone-Aceta minophen Discontinued 1 - 2 EACH PO 4 TIMES DAILY NEEDED 12 December 16, 2017 11:00pm December 19, 2017 11:12pm acetaminophen 325 mg / oxyCODONE hydrochloride 5 mg oral tablet (4 sources) Opioid Agonist Start: 04-24-2021 End: 08-03-2021 take 2 tablets by mouth every eight hours as needed Oxycodone-Acetami nophen Discontinued 2 TABLET PO EVERY 8 HOURS NEEDED 8 April 24, 2021 August 03, 2021 9:07am amLODIPine 10 mg oral tablet (8 sources) Dihydropyridine Calcium Channel Zenaida Start: 05-23-2017 End: 07-04-2019 take 10 mg by mouth once daily Amlodipine Discontinued 10 MG PO DAILY December 12, 2018 7:38am July 04, 2019 7:27am amoxicillin 875 mg / clavulanate 125 mg oral tablet (16 sources) Penicillin-class Antibacterial Start: 09-24-2021 End: 10-04-2021 take 1 tablet by mouth every twelve hours Amoxicillin-Pot Clavulanate Discontinued 1 TABLET PO Q12H 03 01September 24, 2021 5:32am October 03, 2021 11:02pm Start: 07-04-2019 End: 07-14-2019 take 1 tablet by mouth every twelve hours Amoxicillin-Pot Clavulanate (Augmentin) 875-125 mg tablet Discontinued 1 TABLET PO Q12H 03 01July 03, 2019 11:00pm July 13, 2019 11:01pm Start: 12-12-2018 End: 01-08-2019 take 1 tablet by mouth twice daily Amoxicillin-Pot Clavulanate (Augmentin) 875-125 mg tablet Discontinued 1 TABLET PO TWICE A DAY December 11, 2018 11:00pm January 08, 2019 9:38am ARIPiprazole 15 mg oral tablet (4 sources) Atypical Antipsychotic Start: 05-23-2017 End: 12-12-2018 take 15 mg by mouth once daily Aripiprazole Discontinued 15 MG PO DAILY May 23, 2017 12:00am December 12, 2018 7:41am benzonatate 100 mg oral capsule (4 sources) Non-narcotic Antitussive Start: 01-08-2019 End: 07-04-2019 take 200 mg by mouth three times daily Benzonatate Discontinued 200 MG PO THREE TIMES A DAY January 07, 2019 11:00pm July 04, 2019 7:26am 24 hr buPROPion hydrochloride 300 mg extended release oral tablet (8 sources) Aminoketone Start: 04-04-2021 End: 06-01-2024 take 1 tablet by mouth once daily buPROPion XL (Wellbutrin XL) 300 MG 24 hr tablet Take 1 tablet (300 mg) by mouth daily. 90 tablet 3 04/11/2023 06/01/2024 Discontinued (Med list cleanup) cephalexin 500 mg oral capsule (4 sources) Cephalosporin Antibacterial Start: 04-24-2021 End: 08-03-2021 take 500 mg by mouth every twelve hours Cephalexin Discontinued 500 MG PO EVERY 12 HOURS 6 3 April 24, 2021 12:00am August 03, 2021 9:08am ciclopirox 80 mg/ml topical solution (2 sources) Start: 04-11-2023 End: 06-01-2024 ciclopirox (Penlac) 8 % solution Indications: Onychomycosis Apply topically Nightly. 6 mL 3 04/11/2023 06/01/2024 Discontinued (Med list cleanup) ciprofloxacin 500 mg oral tablet (4 sources) Quinolone Antimicrobial Start: 02-24-2021 End: 03-06-2021 take 500 mg by mouth twice daily Ciprofloxacin Hcl Discontinued 500 MG PO TWICE A DAY 03 01February 24, 2021 12:00am March 06, 2021 12:01am escitalopram 20 mg oral tablet (4 sources) Serotonin Reuptake Inhibitor Start: 05-23-2017 End: 12-12-2018 take 20 mg by mouth once daily Escitalopram Oxalate Discontinued 20 MG PO DAILY May 23, 2017 12:00am December 12, 2018 7:41am hydroCHLOROthiazide 12.5 mg / lisinopril 20 mg oral tablet (7 sources) Thiazide Diuretic, Angiotensin Converting Enzyme Inhibitor Start: 01-31-2023 End: 06-01-2024 take 2 tablets by mouth once daily lisinopril-hydroC HLOROthiazide 20-12.5 MG tablet Indications: Benign essential HTN Take 2 tablets by mouth daily. 180 tablet 3 04/11/2023 06/01/2024 Discontinued (Cost of medication) Start: 07-02-2022 take 2 tablets by mouth once daily lisinopril-hydroCHLOROthiazide 20-12.5 M G tablet Take 2 tablets by mouth daily. 90 tablet 2 07/02/2022 Active Start: 03-26-2022 take 1 tablet by liu th once daily Lisinopril-Hydrochlorothiazide Active 1 TABLET PO DAILY March 26, 2022 12:00am methylPREDNISolone 4 mg oral tablet (4 sources) Corticosteroid Start: 12-12-2018 End: 01-08-2019 take 1 tablet by mouth once Methylprednisolone (Medrol (Doug)) 4 mg tablets,dose pack Discontinued 0 PO per package directions December 11, 2018 11:00pm January 08, 2019 9:39am PO PER PKG DIR 24 hr oxybutynin chloride 10 mg extended release oral tablet (4 sources) Cholinergic Muscarinic Antagonist Start: 04-23-2021 End: 04-24-2021 take 1 tablet by mouth three times daily Oxybutynin Chloride (Ditropan Xl) 10 mg Tablet Extended Release 24hr Discontinued 10 MG PO THREE TIMES A DAY April 23, 2021 12:00am April 24, 2021 2:51pm phenazopyridine hydrochloride 200 mg oral tablet (8 sources) Start: 04-09-2021 End: 08-03-2021 take 1 tablet by mouth three times daily as needed Phenazopyridine (Pyridium) 200 MG tablet Discontinued 200 MG PO 3 TIMES DAILY NEEDED 13 10April 09, 2021 12:00am August 03, 2021 9:07am Start: 02-06-2021 End: 02-24-2021 take 1 tablet by mouth three times daily Phenazopyridine (Pyridium) 200 mg tablet Discontinued 200 MG PO THREE TIMES A DAY 6 February 06, 2021 12:00am February 24, 2021 12:29pm predniSONE 10 mg oral tablet (8 sources) Start: 03-19-2020 End: 07-02-2020 Prednisone Discontinued 10 MG PO daily 30 12 June 19, 2020 11:00pm July 01, 2020 11:03pm Take 4 tabs once daily days 1-3 3 tabs once daily days 4-6 2 tabs once daily days 7-9 and 1 tab once daily days 10-12. sulfamethoxazole 800 mg / trimethoprim 160 mg oral tablet (4 sources) Dihydrofolate Reductase Inhibitor Antibacterial, Sulfonamide Antimicrobial Start: 02-06-2021 End: 02-24-2021 take 1 tablet by mouth twice daily Sulfamethoxazole- Trimethoprim (Bactrim Ds) 800-160 mg tablet Discontinued 1 TABLET PO TWICE A DAY February 06, 2021 12:00am February 24, 2021 12:30pm traZODone hydrochloride 50 mg oral tablet (2 sources) Serotonin Reuptake Inhibitor Start: 04-11-2023 End: 06-01-2024 take 0.5 tablet by mouth once daily traZODone (Desyrel) 50 MG tablet Indications: Primary insomnia Take 0.5 tablets (25 mg) by mouth Nightly. 30 tablet 3 04/11/2023 06/01/2024 Discontinued (Med list cleanup) Problems Active Problems Problem Classification Problem Date Documented Da te Episodic/Chronic Abdominal pain (4 sources) Flank pain; Translations: [Unspecified abdominal pain] 04-09-2021 Episodic Acute bronchitis (4 sources) Acute bronchitis; Translations: [Acute bronchitis, unspecified] 01-08-2019 Episodic Alcohol-related disorders (5 sources) Alcohol dependence; Translations: [Alcohol dependence, in remission] Onset: 09-19-2016 12-28-2021 Chronic Allergic reactions (4 sources) Inflammatory dermatosis; Translations: [Irritant contact dermatitis, unspecified cause] 06-20-2020 Episodic Contraceptive and procreative management (10 sources) Patient encounter status; Translations: [Encounter for surveillance of implantable subdermal contraceptive] Episodic Deficiency and other anemia (4 sources) Anemia; Translations: [Anemia, unspecified] 07-21-2020 Episodic Deficiency and other anemia (1 source) Iron deficiency anemia; Translations: [Other iron deficiency anemias] 06-01-2024 Episodic Disorders of teeth and jaw (5 sources) Dental caries; Translations: [Dental caries, unspecified] Episodic Essential hypertension (4 sources) Benign essential hypertension; Translations: [Essential (primary) hypertension] Onset: 06-01-2024 04-11-2023 Chronic Fever of unknown origin (4 sources) Fever; Translations: [Fever, unspecified] 02-20-2021 Episodic Miscellaneous mental health disorders (6 sources) Primary insomnia; Translations: [Primary insomnia] Onset: 12-21-2015 12-28-2021 Chronic Mood disorders (5 sources) Moderate major depression, single episode; Translations: [Major depressive disorder, single episode, moderate] Onset: 12-21-2015 12-28-2021 Chronic Mycoses (1 source) Onychomycosis; Translations: [Tinea unguium] 04-11-2023 Episodic Other gastrointestinal disorders (5 sources) Intestinal malabsorption; Translations: [Intestinal malabsorption, unspecified] Onset: 08-23-2015 12-28-2021 Chronic Other non-traumatic joint disorders (1 source) Pain in right hip joint; Translations: [Pain in right hip] 04-11-2023 Episodic Other nutritional; endocrine; and metabolic disorders (5 sources) Obesity; Translations: [Obesity, unspecified] Onset: 08-23-2015 12-28-2021 Chronic Other upper respiratory infections (4 sources) Acute upper respiratory infection; Translations: [Acute upper respiratory infection, unspecified] 02-20-2021 Episodic Residual codes; unclassified (2 sources) Edema; Translations: [Edema, unspecified] 10-25-2024 Episodic Substance-related disorders (8 sources) Opioid dependence in remission; Translations: [Opioid dependence, in remission] Onset: 09-19-2016 12-28-2021 Chronic Urinary tract infections (8 sources) Urinary tract infectious disease; Translations: [Urinary tract infection, site not specified] 02-24-2021 Episodic Past or Other Problems Problem Classification Problem Date Documented Da te Episodic/Chronic Biliary tract disease (5 sources) Cholecystitis; Translations: [Cholecystitis, unspecified] Onset: 08-24-2015 12-28-2021 Episodic Calculus of urinary tract (13 sources) Kidney stone; Translations: [Calculus of kidney] Onset: 12-21-2015 08-22-2020 Episodic Deficiency and other anemia (2 sources) Other iron deficiency anemias; Translations: [Other iron deficiency anemias] Onset: 06-01-2024 Episodic Immunizations and screening for infectious disease (6 sources) Viral screening status; Translations: [Encounter for screening for other viral diseases] Onset: 06-01-2024 06-01-2024 Episodic Nutritional deficiencies (5 sources) Deficiency of multiple nutrient elements; Translations: [Deficiency of multiple nutrient elements] Onset: 08-23-2015 12-28-2021 Episodic Other screening for suspected conditions (not mental disorders or infectious disease) (5 sources) Encounter for screening mammogram for malignant neoplasm of breast; Translations: [Encounter for screening for lipoid disorders] Onset: 04-20-2024 Episodic Unclassified (3 sources) opiate abuse 10-15-2021 Results Test Name Value Interpretation Reference Range Facility 36on 01-18-2025 36 See previous emails from this patient. I believe she needs refill on lisinopril 20 mg a day and hydrochlorothiazide 50 mg a day. She preferred you to handle the refills. 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: Annual 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 Technologist Required: No Is patient in pain?: No Allergies morphine Adverse Reaction (Verified 06/18/24 08:03) Other topiramate (From Topamax) Adverse Reaction (Verified 06/18/24 08:03) Other Medications ???Medication ???Instructions ???Recorded ???Confirmed ???Type loratadine 10 mg tablet (Claritin) 10 mg PO DAILY 04/04/21 06/18/24 History omeprazole 40 mg capsule,delayed 40 mg PO DAILY 04/04/21 06/18/24 H istory release etonogestrel 68 mg subdermal 1 implant subdermal ONCE 03/26/22 06/18/24 History implant (Nexplanon) lisinopril 20 1 tab PO DAILY 03/26/22 06/18/24 H istory mg-hydrochlorothiazide 25 mg tablet ferrous sulfate 325 mg (65 mg 325 mg PO DAILY 11/11/23 06/18/24 History iron) tablet glucosamine-chondroitin 250 mg-200 2 tab PO ONCE 11/11/23 06/18/24 History mg tablet (Osteo Bi-Flex) ibuprofen 600 mg tablet 600 mg PO Q8H PRN pain #21 tabs 06/18/24 Rx mecobalamin (vitamin B12) 5,000 5,000 mcg PO DAILY 11/11/23 History mcg chewable tablet Is last menstrual period known: Yes Last Menstrual Period: 05/05/24 Post menopausal: No Patient : No : No Control Method: Nexplanon [facility] Medical History Lumbar strain Thoracic myofascial strain Flank pain with history of urolithiasis Psoriasis Sleep apnea Renal calculus Alcohol use Substance abuse Wears glasses Kidney stones Migraine headache Gastric reflux Non-smoker Shortness of breath on exertion Bipolar disorder opiate abuse Alcohol abuse Anxiety Depression HTN (hypertension) Kidney stones Anemia Surgical History History of cystoscopy Hx of cholecystectomy History of gastric bypass History of lithotripsy Gastric bypass status for obesity Family History Father Hypertension Addiction Grandfather Heart disease Diabetes Obesity Social History Smoking Status: Never smoker alcohol intake: former year quit: 2018 substance use type: former substance user Date of last use: 2018 caffeine: Yes what type of physical activity do you participate in: none seatbelt use: always do you feel safe at home: Yes additional social history: History 2 Elective abortions Hx Para 2 Spontaneous abortions Hx # Term Pregnancies Ectopic pregnancies Hx # Pregnancies Multiple births # of living children Past Pregnancies Del. Date Name GA/Weeks Outcome Route Bth Weight Gen Labor Lgth Anesthesia Del Locatn Provider FOB Unknown Milagro Unknown So HPI Encounter for routine gynecological examination Details: LOUIS JIMENEZ is a 43 year old who presents for annual exam. Nexplanon for contraception and doing well. Does not have regular menses with this. Last PAP: 03/26/2022 History of abnormal PAP: No Last mammogram: 03/29/2024 History of abnormal mammogram: No Colon cancer screening: Due at 45 Other preventative health care screenings: PCP Female Reproductive History Last Menstrual Period: 05/05/24 Questions: sexually active: Yes, dyspareunia: No and PCB: No Menopausal Symptoms: No hot flashes, No night sweats, No mood changes and No sleep problems ROS Const Constitutional: Reports system reviewed and no additional complaints, except as documented; Denies night sweats Cardio Card: Reports system reviewed and no additional complaints, except as documented Resp Resp: Reports system reviewed and no additional complaints, except as documented GI GI: Reports system reviewed and no additional complaints, except as documented : Reports system reviewed and no additional complaints, except as documented; Denies difficulty voiding, dysuria, hot flashes or urinary frequency Skin Skin/Breast: Reports system reviewed and no additional complaints, except as documented Neuro Neuro: Reports system reviewed and no additional complaints, except as documented Psych Psych: Reports system reviewed and no additional complaints, except as documented; Denies anhedonia, anxiety or depression Exam Const General (more content not included)... Normal [facility] Patient Observer Office Visit Reporton 06-03-2024 Patient Observer Office Visit Report [facility] [address], [address] [place] [address] OFFICE VISIT Date of Service: 06/03/24 MR#: [id number] Acct: [id number] Name: LOUIS JIMENEZ Rep #: [id number] : 1980 Provider: DEAN Haider ams Age/Sex: 43/F Location: [facility] [place] Status: Signed Intake Vital Signs 11/11/23 06:18 06/03/24 08:33 06/03/24 08:35 Height 5 ft 5 in 5 ft 5 in 5 ft 5 in Weight: 257 lb 6 oz 260 lb 4 oz BMI 42.8 43.2 BP 120/60 113/82 H Position Sitting Pulse 62 Temp 98.9 F Pulse Oximetry (%) 96 Oxygen Delivery Method room air Intake Visit Reasons: Nexplanon Removal and Insertion Chief Complaint: Nexplanon Removal and Insertion Is patient in pain?: No Allergies morphine Adverse Reaction (Verified 06/03/24 08:31) Other topiramate (From Topamax) Adverse Reaction (Verified 06/03/24 08:31) Other Medications ???Medication ???Instructions ???Recorded ???Confirmed ???Type loratadine 10 mg tablet (Claritin) 10 mg PO DAILY 04/04/21 06/03/24 History omeprazole 40 mg capsule,delayed 40 mg PO DAILY 04/04/21 06/03/24 H istory release etonogestrel 68 mg subdermal 1 implant subdermal ONCE 03/26/22 11/11/23 History implant (Nexplanon) lisinopril 20 1 tab PO DAILY 03/26/22 06/03/24 H istory mg-hydrochlorothiazide 25 mg tablet ferrous sulfate 325 mg (65 mg 325 mg PO DAILY 11/11/23 06/03/24 History iron) tablet glucosamine-chondroitin 250 mg-200 2 tab PO ONCE 11/11/23 06/03/24 History mg tablet (Osteo Bi-Flex) ibuprofen 600 mg tablet 600 mg PO Q8H PRN pain #21 tabs 06/03/24 Rx mecobalamin (vitamin B12) 5,000 5,000 mcg PO DAILY 11/11/23 History mcg chewable tablet Is last menstrual period known: Yes Last Menstrual Period: 05/05/24 Control Method: Nexplanon PFSH PFSH Medical History Lumbar strain Thoracic myofascial strain Flank pain with history of urolithiasis Psoriasis Sleep apnea Renal calculus Alcohol use Substance abuse Wears glasses Kidney stones Migraine headache Gastric reflux Non-smoker Shortness of breath on exertion Bipolar disorder opiate abuse Alcohol abuse Anxiety Depression HTN (hypertension) Kidney stones Anemia Surgical History History of cystoscopy Hx of cholecystectomy History of gastric bypass History of lithotripsy Gastric bypass status for obesity Family History Father Hypertension Addiction Grandfather Heart disease Diabetes Obesity Social History Smoking Status: Never smoker alcohol intake: former year quit: 2018 substance use type: former substance user Date of last use: 2018 caffeine: Yes what type of physical activity do you participate in: none seatbelt use: always do you feel safe at home: Yes additional social history: History 2 Elective abortions Hx Para 2 Spontaneous abortions Hx # Term Pregnancies Ectopic pregnancies Hx # Pregnancies Multiple births # of living children Past Pregnancies Del. Date Name GA/Weeks Outcome Route Bth Weight Infant Gen Labor Lgth Anesthesia Del Locatn Provider FOB Unknown Milagro Unknown So HPI Nexplanon Removal and Insertion Details: LOUIS JIMENEZ is a 43 year old who presents for nexplanon removal and insertion. doing well and needs replaced. Female Reproductive History Last Menstrual Period: 05/05/24 Questions: sexually active: Yes, dyspareunia: No and PCB: No ROS Const Constitutional: Reports system reviewed and no additional complaints, except as documented Cardio Card: Reports system reviewed and no additional complaints, except as documented Resp Resp: Reports system reviewed and no additional complaints, except as documented GI GI: Reports system reviewed and no additional complaints, except as documented : Reports system reviewed and no additional complaints, except as documented Musc Musc: Reports system reviewed and no additional complaints, except as documented Skin Skin/Breast: Reports system reviewed and no additional complaints, except as documented Neuro Neuro: Reports system reviewed and no additional complaints, except as documented Psych Psych: Reports system reviewed and no additional complaints, except as documented Endo Endo: Reports system reviewed and no additional complaints, except as documented Kj/Lymph Hematologic/Lymphatic: Reports system reviewed and no additional complaints, except as documented Aller/Immun Allergic/Immunologic: Reports system reviewed and no additional complaints, except as documented E (more content not included)... Normal [facility] Office Visiton 06-01-2024 Follow-up visit [id number] Long Jimenez 1980 F Date Provider Department Center 06/01/2024 VERONICA MUSA [facility] Family History Problem Relation Age of Onset High Blood Pressure Father Alcohol abuse Father Hypertension Father Hyperlipidemia Father Vision loss Father Depression Mother Miscarriages / Stillbirths Mother Vision loss Mother Depression Sister Drug abuse Sister Alcohol abuse Sister Vision loss Sister Alcohol abuse Brother Depression Brother Vision loss Brother Family Status - Relation Status Age at Father Mother Alive Sister Brother Level of Service:55071 [place] PERIODIC PREVENTIVE MED EST PATIENT 40-64YRS Reason for Visit and Comments: Annual Exam [83] - Patient asking for Lisinopril/hydrochlorot hiazide be in separate pill form due to it cost a lot more together . Normal [facility] Progress Noteon 06-01-[address] [facility] - [address] [facility] [id number] Visit type: Established Patient Reason for Visit: Annual Exam (Patient asking for Lisinopril/hydrochlorot hiazide be in separate pill form due to it cost a lot more together . ) Assessment and Plan Diagnoses and all orders for this visit: Well adult exam UTD on immunizations. Encouraged avoidance of tobacco and alcohol, safe sexual practice. Healthy diet with plenty of fruits, vegetables, whole grains, and lean proteins. Exercise 3-5 times per week for 30-45 minutes. Wear seatbelts. Wear sunscreen. Reviewed age appropriate screening tests. Screening, lipid - Lipid panel; Future Screening for diabetes mellitus - Hemoglobin A1c; Future Other iron deficiency anemia Chronic, stable, continue current management plan Check cbc today Benign essential HTN - Comprehensive metabolic panel; Future - CBC; Future - hydroCHLOROthiazide (HYDRODiuril) 25 MG tablet; Take 1 tablet (25 mg) by mouth daily. - lisinopril 40 MG tablet; Take 1 tablet (40 mg) by mouth daily. Chronic, stable, continue current management plan Opioid dependence in remission (HCC) - in remission, no concerns at this time Need for hepatitis C screening test - Hepatitis C antibody; Future Need for Tdap vaccination - Tdap vaccine greater than or equal to 7 years old IM Other orders - omeprazole OTC (PriLOSEC OTC) 20 MG EC tablet; Take 1 tablet (20 mg) by mouth every morning (before breakfast). Do not crush, chew, or split. No follow-ups on file. Subjective HPI Not exercising much Has been [facility] History of HYPERTENSION and anemia GERD is OK on omeprazole Had a mammogram at [place] recently Review of Systems Constitutional: Negative for appetite [...] bleeding, vaginal discharge and vaginal pain. Musculoskeletal: Negative for arthralgias, back pain, joint swelling and myalgias. Skin: Negative for color change, rash and wound. Neurological: Negative for dizziness, tremors, seizures, speech difficulty, weakness, numbness and headaches. Hematological: Negative for adenopathy. Does not bruise/bleed easily. Psychiatric/Behavioral: Negative for agitation, decreased concentration, dysphoric mood and sleep disturbance. The patient is not nervous/anxious. Allergies Allergen Reactions Morphine Other reaction(s): Other: See Comments Other reaction(s): Other: See Comments headaches headaches Topiramate Other reaction(s): Other: See Comments Kidney stones Kidney stones Current Outpatient Medications: ferrous sulfate 325 (65 Fe) MG tablet, Take 1 tablet (325 mg) by mouth daily (with breakfast)., Disp: 30 tablet, Rfl: 11 loratadine (Claritin) 10 MG tablet, Take 1 tablet (10 mg) by mouth daily., Disp: 90 tablet, Rfl: 3 hydroCHLOROthiazide (HYDRODiuril) 25 MG tablet, Take 1 tablet (25 mg) by mouth daily., Disp: 90 tablet, Rfl: 3 lisinopril 40 MG tablet, Take 1 tablet (40 mg) by mouth daily., Disp: 90 tablet, Rfl: 3 omeprazole OTC (PriLOSEC OTC) 20 MG EC tablet, Take 1 tablet (20 mg) by mouth every morning (before breakfast). Do not crush, chew, or split., Disp: 90 tablet, Rfl: 3 Past Medical History: Diagnosis Date Allergic rhinitis Anemia Anxiety Deficiency of multiple nutrient elements Depression Gastritis GERD (gastroesophageal reflux disease) Hypertension Insomnia due to mental disorder or depression Intestinal malabsorption Kidney stone Migraine Obesity Obstructive sleep apnea Peptic ulceration Substance abuse ([facility] ([facility]) Social History Socioeconomic History Marital status: Tobacco Use Smoking status: Never Smokeless tobacco: Never Substance and Sexual Activity Alcohol use: Not Currently Comment: Drank 750ml of Vodka 4-5 times a week for several years Drug use: Not Currently Frequency: 4.0 times per week Types: Oxycodone Sexual activity: Yes Partners: Male control/protection: Implant Social Drivers of Health Financial Resource Strain: Low Risk (06/01/2024) Overall Financial Resource Strain (CARDIA) Difficulty of Paying Living Expenses: Not hard at all Food Insecurity: No Food Insecurity (06/01/2024) Hunger Vital Sign Worried About Running Out of Food in the Last Year: Never true Ran Out of Food in the Last Ye (more content not included)... [facility] SCRN MAMM (CAD)W/BRIDGET BILATo n 03-29-2024 SCRN MAMM (CAD)W/BRIDGET BILAT [facility] [address], [place] [id number] SCRN MAMM (CAD)W/BRIDGET BILAT MR#: [id number] Acct: [id number] Name: LOUIS JIMENEZ Rep #: [id number] : 1980 F 43 From: Kodi collazo MD PCP: VERONICA FARRELL DO Status: [facility] Study: SCRN MAMM (CAD)W/BRIDGET BILAT Date of Exam: 03/17 06/08 Exam# [id number] Ordering [place]: [place] [id number] MAMMOGRAPHY - BILATERAL SCREENING REASON FOR EXAM: Female, 43 years old. Routine annual screening examination. PERTINENT HISTORY: Non-contributory. TECHNIQUE: Digital bilateral breast bridget (3D mammographic acquisition) in the CC and MLO projections. 2-D mediolateral oblique (MLO) and craniocaudad (CC) views of both breasts were obtained. CAD: Full Field Digital Mammography with Computer Added Detection was performed. COMPARISON: Comparison is made with prior study dated April 30, 2022. FINDINGS: Breast Composition: There are scattered areas of fibroglandular density. There are no dominant masses or suspicious calcifications. Stable small bilateral axillary lymph nodes. No other significant abnormalities are identified. There has been no significant change since the prior study. BI/SCRN MAMM (CAD)W/BRIDGET BILAT IMPRESSION: Stable bilateral screening mammogram. Yearly follow-up mammogram recommended. (A) ASSESSMENT CATEGORY: BIRADS Category 2: Benign. A letter regarding these results will be sent to the patient by the facility within 30 days. Approximately 10% of breast cancers are not detected by mammography. A normal mammogram should not delay biopsy of a clinically suspicious abnormality. [id number] Electronically Signed: Kodi Wright MD at 8:52 EST Reading Location ID and State: [address] [place] [address] , Service support , CC: VERONICA FARRELL DO; Dr. Lilliam Patton DO Thread Milling Machine Set Up Operator: Signed Normal [facility] Urgent Care Visit Reporton 0 11-11-2023 Urgent Care Visit Report [facility] [address], [address] [place] [address] OFFICE VISIT Date of Service: 11/11/23 MR#: [id number] Acct: [id number] Name: LOUIS JIMENEZ Rep #: [id number] : 1980 Provider: YANCY Melchor Age/Sex: 43/F Location: [facility] [place] Status: Signed Intake Vital Signs 03/26/22 09:57 11/11/23 06:18 Height 5 ft 5 in 5 ft 5 in Weight: 257 lb 6 oz BMI 42.8 BP 120/60 Position Sitting Pulse 62 Temp 98.9 F Temp Source Temporal Pulse Oximetry (%) 96 Oxygen Delivery Method room air Intake Visit Reasons: MID/LOW BACK PAIN/CONCERN FOR MUSCLE STRAIN Chief Complaint: tooth pain Accompanied by: Self Is patient in pain?: Yes Pain scale (1-10): 3 Allergies morphine Adverse Reaction (Verified 11/11/23 06:18) Other topiramate (From Topamax) Adverse Reaction (Verified 11/11/23 06:18) Other Medications ???Medication ???Instructions ???Recorded ???Confirmed ???Type loratadine 10 mg tablet (Claritin) 10 mg PO DAILY 04/04/21 11/11/23 History omeprazole 40 mg capsule,delayed 40 mg PO DAILY 04/04/21 11/11/23 History release etonogestrel 68 mg subdermal 1 implant subdermal ONCE 03/26/22 11/11/23 History implant (Nexplanon) lisinopril 20 1 tab PO DAILY 03/26/22 11/11/23 History mg-hydrochlorothiazide 25 mg tablet cyclobenzaprine 10 mg tablet 10 mg PO HS PRN muscle spasm #14 11/11/23 11/11/23 Rx tabs ferrous sulfate 325 mg (65 mg 325 mg PO DAILY 11/11/23 11/11/23 History iron) tablet glucosamine-chondroitin 250 mg-200 2 tab PO ONCE 11/11/23 11/11/23 History mg tablet (Osteo Bi-Flex) ibuprofen 600 mg tablet 600 mg PO Q8H PRN pain #21 tabs 11/11/23 11/11/23 Rx mecobalamin (vitamin B12) 5,000 5,000 mcg PO DAILY 11/11/23 11/11/23 History mcg chewable tablet PFSH Medical History (Updated 11/11/23 @ 06:36 by Michael HAINES, PA) Lumbar strain Thoracic myofascial strain Flank pain with history of urolithiasis Psoriasis Sleep apnea Renal calculus Alcohol use Substance abuse Wears glasses Kidney stones Migraine headache Gastric reflux Non-smoker Shortness of breath on exertion Bipolar disorder opiate abuse Alcohol abuse Anxiety Depression HTN (hypertension) Kidney stones Anemia Surgical History History of cystoscopy Hx of cholecystectomy History of gastric bypass History of lithotripsy Gastric bypass status for obesity Family History Father Hypertension Addiction Grandfather Heart disease Diabetes Obesity Social History Smoking Status: Never smoker alcohol intake: former year quit: 2019 substance use type: former substance user Date of last use: 2018 caffeine: Yes what type of physical activity do you participate in: none seatbelt use: always do you feel safe at home: Yes additional social history: HPI HPI Chief Complaint: tooth pain Details: LOUIS JIMENEZ, is a 43 F who presents to the office today for initial evaluation chronic mid low back pain which has progressively worsened over the last several months ever since since switching employment, stating working from home on a computer and chronically sitting. Patient noted several days ago leaning forward to corn picker an object and nose pain got remarkably worse to the same region. No complaints of chest pain/shortness of breath/dyspnea on exertion. PMH NC. No cough or radicular complaints upon questioning. No jaws-fnh-fjypadk products taken to assist. No other associated symptoms and no other alleviating/aggravating factors ROS Const Constitutional: No other (As above) Exam Const General: cooperative, healthy appearing and no acute distress Nutritional Appearance: obese Orientation: alert and awake Resp Effort Inspection: normal respiratory effort and able to speak in complete sentences Cardio Rate: regular rate Pulses: radial pulses present GI Inspection: large pannus and obesity Musc Thoracic/Lumbar Spine: straight leg raise negative bilaterally and paraspinal tenderness bilaterally in the lower thoracic, in the upper lumbar and in the mid lumbar Skin General: no rashes or lesions noted Neuro General: patient alert and patient awake Cognition: normal cognition Speech: speech normal Motor: muscle tone normal throughout Sensory Exam: no sensory deficits noted Psych Appearance: grossly normal Mental Status: mental status grossly normal Mood: congruent mood Affect: normal affect Speech and Movement: speech and movement normal Attitude: cooperative Coding Level of Care Code Off vis,est,level 3 Diagnoses Thoracic myofascial strain S29.019A Lumbar strain S (more content not included)... Normal [facility] Basophil percentageOrdered B y: VERONICAMARTITA FARRELL on 04-18-2023 Bilirubin [Mass/Vol] 0.20 mg/dL 0.20-1.00 [facility] Comment on above: For patients on eltr ombopag therapy, use of Dimension [place] TBIL is not recommended. Chloride [Moles/Vol] 107 mmol/L 98-107 [facility] Cholesterol [Mass/Vol] 207 mg/dL <200 [facility] Comment on above: <200 mg/dL Desirable 200-240 mg/dL Borderline >240 mg/dL High Risk Glucose [Mass/Vol] 106 mg/dL 74-106 [facility] Comment on above: Fasting Glucose resu lt from 100 to 125 mg/dL suggests IMPAIRED HOMEOSTASIS per A.D.A. criteria. Hemoglobin (Bld) [Mass/Vol] 10.3 g/dL 12.0-15.0 [facility] Potassium [Moles/Vol] 3.5 mmol/L 3.5-5.1 [facility] Protein [Mass/Vol] 7.2 g/dL 6.4-8.2 [facility] Sodium [Moles/Vol] 139 mmol/L 136-145 [facility] Triglyceride [Mass/Vol] 61 mg/dL <199 [facility] Comment on above: The drugs N-Acetylcy steine and Metamizole may falsely depress this assay.Serum Triglycerides Reference Interval Normal <150 mg/dL Borderline high 150 - 199 mg/dL High 200 - 499 mg/dL Very High > or = 500 mg/dL WBC (Bld) [#/Vol] 8.0 10*3/uL 4.4-11.0 [facility] Determination of erythrocyte mean corpuscular volume (MCV)Ordered By: VERONICA FARRELL on 04-18-2023 MCV (RBC) [Entitic vol] 74.2 fL 81-99 [facility] Erythrocyte distribution wid th ratioOrdered By: VERONICA FARRELL on 04-18-2023 Erythrocyte distribution width (RBC) [Ratio] 15.7 % 11.6-14.6 [facility] Erythrocyte distribution wid th standard deviationOrdered By: VERONICA FARRELL on 04-18-2023 Erythrocyte distribution width (RBC) [Entitic vol] 42.0 fL 35.1-43.9 [facility] Hematocrit Auto (Bld) [Volum e fraction]Ordered By: VERONICA FARRELL on 04-18-2023 Hematocrit (Bld) [Volume fraction] 35.1 % 37-47 [facility] Iron measurement (mass/mass) Ordered By: VERONICA FARRELL on 04-18-2023 Iron (Unsp spec) [Mass/Mass] 24 ug/dL 50-170 [facility] Laboratory - Chemistry and C hemistry - challengeOrdered By: VERONICA FARRELL on 04-18-2023 Albumin/Globulin [Mass ratio] 1.1 {ratio} 0.9-2.4 [facility] ALP [Catalytic activity/Vol] 106 U/L 45-117 [facility] ALT [Catalytic activity/Vol] 22 U/L 13-56 [facility] Cholesterol in HDL (Body fld) [Mass/Vol] 61 mg/dL >40 [facility] Comment on above: The drugs N-Acetylcy steine and Metamizole may falsely depress this assay. Reference Range HDL <40 mg/dL Low HDL Cholesterol HDL >or= 60 mg/dL High HDL Cholesterol Cholesterol in LDL (Body fld) [Moles/Vol] 134 mg/dL 0-130 [facility] Cholesterol in VLDL Calc [Moles/Vol] 12 mg/dL 5-40 [facility] CO2 [Moles/Vol] 30.0 mmol/L 21.0-32.0 [facility] Ferritin [Mass/Vol] 4 ng/mL 8-252 [facility] Globulin (S) [Mass/Vol] 3.5 g/dL 2.2-4.2 [facility] Urea nitrogen/Creatinine [Mass ratio] 29.3 mg/mg 10-20 [facility] Laboratory - Hematology and Cell countsOrdered By: VERONICA FARRELL on 04-18-2023 MCH (RBC) [Entitic mass] 21.8 pg 27.0-32.0 [facility] MCHC (RBC) [Mass/Vol] 29.3 g/dL 32-36 [facility] Platelets (Bld) [#/Vol] 424 10*3/uL 150-450 [facility] No Panel InformationOrdered By: VERONICA FARRELL on 04-18-2023 Estimated GFR (MDRD) Amer 103 mL/min >60 [facility] Comment on above: GFR Calc Estimated GFR (MDRD) Non-Af Amer 85 mL/min >60 [facility] Comment on above: Non- GFR Calc Total Iron Binding Capacity 468 ug/dL 250-450 [facility] Platelet mean volume Tremaine-Ec ker (Bld) [Entitic vol]Ordered By: VERONICA FARRELL on 04-18-2023 Platelet mean volume (Bld) [Entitic vol] 9.8 fL 6.2-12.0 [facility] RBC Auto (Bld) [#/Vol]Ordere d By: VERONICA FARRELL on 04-18-2023 RBC (Bld) [#/Vol] 4.73 10*6/uL 4.2-5.4 [facility] Serum or plasma calcium kem urement (mass/volume)Ordered By: VERONICA FARRELL on 04-18-2023 Calcium [Mass/Vol] 9.3 mg/dL 8.5-10.1 [facility] Serum or plasma creatinine m easurement (mass/volume)Ordered By: VERONICA FARRELL on 04-18-2023 Creatinine [Mass/Vol] 0.79 mg/dL 0.55-1.02 [facility] Comment on above: The validity of the calculated GFR & GFRAA in patients over 70 years has not been determined. Clinical correlation is essential. Serum or plasma iron saturat ion measurement (mass fraction)Ordered By: VERONICA FARRELL on 04-18-2023 Iron saturation [Mass fraction] 5.1 % 15.0-55.0 [facility] Serum or plasma urea nitroge n measurement (mass/volume)Ordered By: VERONICA FARRELL on 04-18-2023 Urea nitrogen [Mass/Vol] 23 mg/dL 7-18 [facility] Thin prep Papanicolaou smear with manual screeningOrdered By: VERONICA FARRELL on 04-18-2023 Thin prep Papanicolaou smear with manual screening 3.7 g/dL 3.2-5.0 [facility] Thin prep Papanicolaou smear with manual screening 11 U/L 15-37 [facility] Thin prep Papanicolaou smear with manual screening 2 5-15 [facility] Whole blood hemoglobin A1c/t otal hemoglobin ratio (mass fraction)Ordered By: VERONICA FARRELL on 04-18-2023 HbA1c (Bld) [Mass fraction] 5.4 % 3.8-5.6 [facility] Comment on above: Normal < 5.7 % Predi abetic 5.7 - 6.4 % Diabetic >or= 6.5 % Please note range changes. Cervical or vagninal specime n microscopic examination by cytology stain (reported asOrdered By: Dr. Mares on 03-26-2022 Cytology report Cyto stain Doc (Cvx/Vag) Comment . [facility] Comment on above: The Pap smear is a s creening test designed to aid in thedetection of premalignant and malignant conditions of theuterine cervix. It is not a diagnostic procedure andshould not be used as the sole means of detecting cervicalcancer. Both false-positive and false-negative reports dooccur. Detection in cervical specim en of any of human papilloma virus (HPV) 16, 18, 31, 33,Ordered By: Dr. Mares on 03-26-2022 HPV 16+18+31+33+35+39+45+5 1+52+56+58+59+66+68 DNA Probe+sig amp Ql (Cvx) Negative Negative [facility] Comment on above: This nucleic acid am plification test detects fourteen high- risk HPV types (16,18,31,33,35,39,45,51,52,56,58,59,66,68)without differentiation. Laboratory - CytologyOrdered By: Dr. Mares on 03-26-2022 Production Supervisor Cyto stain Nom (Cvx/Vag) [ID] Comment . [facility] Comment on above: Sruthi taylor, B2B Appointment Setter (ASCP) Pathologist Cyto stain Nom (Cvx/Vag) [ID] Comment . [facility] Comment on above: Navin Hernandez MD, Pa thologist Laboratory - Miscellaneous t estsOrdered By: Dr. Mares on 03-26-2022 Service comment (Unsp spec) [Interp] Comment . [facility] Comment on above: This liquid based Th inPrep(R) pap test was screened withthe use of an image guided system. Service comment (Unsp spec) [Interp] . . [facility] Liquid-based cerv Pap + CT/G C by JANE w reflex to high-risk HPV for ASCUSOrdered By: Dr. Mares on 03-26-2022 Cytology report Cyto stain.thin prep Doc (Cvx/Vag) Comment . [facility] Comment on above: Criteria not met, HP V Genotype not performed.Performed at: [facility] [id number] Director: Maria Fernanda Acuna MD, Phone: [phone] at: =G - [facility] [address] [id number] Director: Maria Fernanda Acuna MD, Phone: [phone] No Panel InformationOrdered By: Dr. Mares on 03-26-2022 Pathology report final diagnosis Narrative Comment . [facility] Comment on above: NEGATIVE FOR INTRAEP ITHELIAL LESION OR MALIGNANCY.REACTIVE CELLULAR CHANGES AND/OR REPAIR ARE PRESENT. Absolute lymphocyte counton 10-02-2021 Lymphocytes Auto (Unsp spec) [#/Vol] 1.87 10*3/uL 0.83-4.51 [facility] Work Phone: Basophil percentageon 2021 Basophils/100 WBC (Bld) 0.4 % 0-1 [facility] Work Phone: [phone] Bilirubin [Mass/Vol] 0.30 mg/dL 0.20-1.00 [facility] Work Phone: Comment on above: For patients on eltr ombopag therapy, use of Dimension [place] TBIL is not recommended. Chloride [Moles/Vol] 108 mmol/L 98-107 [facility] Work Phone: Cholesterol [Mass/Vol] 177 mg/dL <200 [facility] Work Phone: [phone] Comment on above: <200 mg/dL Desirable 200-240 mg/dL Borderline >240 mg/dL High Risk Eosinophils/100 WBC (Bld) 2.0 % 0-5 [facility] Work Phone: Glucose [Mass/Vol] 100 mg/dL 74-106 [facility] Work Phone: Comment on above: Fasting Glucose resu lt from 100 to 125 mg/dL suggests IMPAIRED HOMEOSTASIS per A.D.A. criteria. Neutrophils (Bld) [#/Vol] 5.5 10*3/uL 2.0-7.7 [facility] Work Phone: Neutrophils/100 WBC (Bld) 69.4 % 47-70 [facility] Work Phone: [phone] Potassium [Moles/Vol] 4.0 mmol/L 3.5-5.1 [facility] Work Phone: [phone] Protein [Mass/Vol] 6.7 g/dL 6.4-8.2 [facility] Work Phone: [phone] Sodium [Moles/Vol] 141 mmol/L 136-145 [facility] Work Phone: [phone] Triglyceride [Mass/Vol] 72 mg/dL <199 [facility] Work Phone: [phone] Comment on above: The drugs N-Acetylcy steine and Metamizole may falsely depress this assay.Serum Triglycerides Reference Interval Normal <150 mg/dL Borderline high 150 - 199 mg/dL High 200 - 499 mg/dL Very High > or = 500 mg/dL WBC (Bld) [#/Vol] 7.9 10*3/uL 4.4-11.0 [facility] Work Phone: [phone] Blood erythrocytes count (nu mber/volume)on 10-02-2021 RBC (Bld) [#/Vol] 4.70 10*6/uL 4.2-5.4 [facility] Work Phone: [phone] Blood hemoglobin measurement (mass/volume)on 10-02-2021 Hemoglobin (Bld) [Mass/Vol] 9.6 g/dL 12.0-15.0 [facility] Work Phone: Blood lymphocytes/100 leukoc yteson 10-02-2021 Lymphocytes/100 WBC (Bld) 23.8 % 19-41 [facility] Work Phone: [phone] Blood monocytes/100 leukocyt eson 10-02-2021 Monocytes/100 WBC (Bld) 4.1 % 0-10 [facility] Work Phone: Blood platelet mean volumeon 10-02-2021 Platelet mean volume (Bld) [Entitic vol] 10.1 fL 6.2-12.0 [facility] Work Phone: [phone] Determination of erythrocyte mean corpuscular volume (MCV)on 10-02-2021 MCV (RBC) [Entitic vol] 71.3 fL 81-99 [facility] Work Phone: [phone] Hematocrit Auto (Bld) [Volum e fraction]on 10-02-2021 Hematocrit (Bld) [Volume fraction] 33.5 % 37-47 [facility] Work Phone: [phone] Iron measurement (mass/mass) on 10-02-2021 Iron (Unsp spec) [Mass/Mass] 23 ug/dL 50-170 [facility] Work Phone: [phone] Laboratory - Chemistry and C hemistry - challengeon 10-02-2021 ALP [Catalytic activity/Vol] 123 U/L 45-117 [facility] Work Phone: [phone] ALT [Catalytic activity/Vol] 18 U/L 13-56 [facility] Work Phone: [phone] CO2 [Moles/Vol] 27.0 mmol/L 21.0-32.0 [facility] Work Phone: [phone] Globulin (S) [Mass/Vol] 3.3 g/dL 2.2-4.2 [facility] Work Phone: [phone] Urea nitrogen/Creatinine [Mass ratio] 21.6 mg/mg 10-20 [facility] Work Phone: [phone] Laboratory - Hematology and Cell countson 10-02-2021 Erythrocyte distribution width (RBC) [Entitic vol] 45.9 fL 35.1-43.9 [facility] Work Phone: [phone] Erythrocyte distribution width (RBC) [Ratio] 18.3 % 11.6-14.6 [facility] Work Phone: [phone] Immature granulocytes/100 WBC (Bld) 0.300 % 0.0-0.9 [facility] Work Phone: [phone] Comment on above: IG% - Immature Granu locytes (promyelocytes, myelocytes and metamyelocytes) > 1% indicates that a LEFT SHIFT is Present. MCH (RBC) [Entitic mass] 20.4 pg 27.0-32.0 [facility] Work Phone: Nucleated RBC/100 WBC (Bld) [Ratio] 0 % 0-5 [facility] Work Phone: MCHC Auto (RBC) [Mass/Vol]on 10-02-2021 MCHC (RBC) [Mass/Vol] 28.7 g/dL 32-36 [facility] Work Phone: No Panel Informationon 10-02 Estimated GFR (MDRD) Amer 129 mL/min >60 [facility] Work Phone: Comment on above: GFR Calc Estimated GFR (MDRD) Non-Af Amer 107 mL/min >60 [facility] Work Phone: Comment on above: Non- GFR Calc Total Iron Binding Capacity 449 ug/dL 250-450 [facility] Work Phone: Platelets bldon 10-02-2021 Platelets (Bld) [#/Vol] 423 10*3/uL 150-450 [facility] Work Phone: Serum or plasma albumin kem urement (mass/volume)on 10-02-2021 Albumin [Mass/Vol] 3.4 g/dL 3.2-5.0 [facility] Work Phone: Serum or plasma albumin/glob ulin mass ratioon 10-02-2021 Albumin/Globulin [Mass ratio] 1.0 {ratio} 0.9-2.4 [facility] Work Phone: [phone] Serum or plasma calcium kem urement (mass/volume)on 10-02-2021 Calcium [Mass/Vol] 8.9 mg/dL 8.5-10.1 [facility] Work Phone: [phone] Serum or plasma cholesterol in HDL measurement (mass/volume)on 10-02-2021 Cholesterol in HDL [Mass/Vol] 48 mg/dL >40 [facility] Work Phone: [phone] Comment on above: The drugs N-Acetylcy steine and Metamizole may falsely depress this assay. Reference Range HDL <40 mg/dL Low HDL Cholesterol HDL >or= 60 mg/dL High HDL Cholesterol Serum or plasma cholesterol in VLDL measurement (mass/volume)on 10-02-2021 Cholesterol in VLDL [Mass/Vol] 14 mg/dL 5-40 [facility] Work Phone: Serum or plasma creatinine m easurement (mass/volume)on 10-02-2021 Creatinine [Mass/Vol] 0.65 mg/dL 0.55-1.02 [facility] Work Phone: Comment on above: The validity of the calculated GFR & GFRAA in patients over 70 years has not been determined. Clinical correlation is essential. Serum or plasma ferritin gregoria surement (mass/volume)on 10-02-2021 Ferritin [Mass/Vol] 3 ng/mL 8-252 [facility] Work Phone: Serum or plasma low density lipoprotein (LDL) cholesterol measurement (mass/volume)on 10-02-2021 Cholesterol in LDL [Mass/Vol] 115 mg/dL 0-130 [facility] Work Phone: Serum or plasma urea nitroge n measurement (mass/volume)on 10-02-2021 Urea nitrogen [Mass/Vol] 14 mg/dL 7-18 [facility] Work Phone: Thin prep Papanicolaou smear with manual screeningon 10-02-2021 Thin prep Papanicolaou smear with manual screening 14 U/L 15-37 [facility] Work Phone: Thin prep Papanicolaou smear with manual screening 6 5-15 [facility] Work Phone: PROGRESSon 04-15-2018 Protein mass conc HNO ID: [id number] Author: Nuria (PtElijah Lobo Service: (none) Author Type: Physical Therapist Type: Progress Notes Filed: 04/15/2018 1:21 PM Note Text: 04/15/2018 [facility] REHABILITATION AND SPORTS THERAPY PHYSICAL THERAPY DISCONTINUANCE OF CARE Plan of Care Period: Start of Care Date: 01/06/18 Last Visit Date:same Therapy Program: Patient did not return for follow up care as planned. Please refer to last visit note for interventions provided for this episode of care. Assessment: Unable to formally assess goal achievement due to non-compliance with therapy plan of care. Reason for Discontinuation of Care: Patient has not returned to therapy or scheduled additional follow-up appointments. Nruia Lobo PT [facility] CNTHERAPYon 01-06-2018 CNTHERAPY OT/PT/Speech Visit (PTWS) LOUIS OSEGUERA ([id number]) 1980 F Date Time Provider Department 01/06/18 10:30 AM NURIA LOBO (PT) PTWS Date Time Provider Department Center 01/06/2018 10:30 AM [id number], LISA (PT) PTWS [facility] Reason for Visit: PT Eval [747] Patient Education [91] PT Discharge [752] Reason For Visit History Recorded Visit Diagnosis:Right thigh pain [M79.651] Allergies As of Date: 01/06/2018 Noted Allergy Reaction MORPHINE 09/30/2015 14 - Other: See Comments Comments: headaches TOPAMAX (TOPIRAMATE) 09/30/2015 14 - Other: See Comments Comments: Kidney stones Date Reviewed: 02/27/2017 Reviewed by: Mai Mccrary Cma - Fully Assessed Prescriptions as of 01/06/2018 Sig: ABILIFY ORAL Take by mouth. AMLODIPINE 10 MG TABLET Take 10 mg by mouth once crispin* LISINOPRIL 20 MG TABLET Take 20 mg by mouth once crispin* OMEPRAZOLE 40 MG CAPSULE,JERE* Take 40 mg by mouth once crispin* CALCIUM 500 + D (D3) ORAL Take by mouth. MULTIVITAMIN CAPSULE Take 1 capsule by mouth twice* CHOLECALCIFEROL (VITAMIN D3) * Take 5,000 Units by mouth onc* SERTRALINE 100 MG TABLET Take 100 mg by mouth once terrence* TRAZODONE ORAL Take by mouth. Progress Notes: Nuria Lobo PT 01/06/2018 12:34 PM Signed Episode Visit Count: 1 Therapist That Will Oversee The Plan Of Care: Nuria Lobo Start of Care Date: 01/06/18 Onset Date: 12/16/17 Plan of Care Certification Date: 01/06/18 Patient Identified by Name and Date of : Yes REHABILITATION AND SPORTS THERAPY PHYSICAL THERAPY EVALUATION PLAN OF CARE: Assessment: Louis Oseguera presents with the chief complaint of pain in right anterior inguinal region. Sx are consistent with possible hip impingement/ labral issue? Supine , sidelying and prone leg lifts painful but with standing able to do with less pain. ER with hip flexion painful but not painful when hip is in neutral flexion. Walking is less painful than sitting and trying to get up. . She presents with impairments of decreased strength and function with pain . . She may benefit from skilled therapy services to improve pain and deficits. . Prognosis: Good Good due to: current objective clinical presentation;good overall health status Goals for Episode of Care: created on 01/06/18 through 02/06/18 [place] in home exercise program. Patient will decrease pain rating by 2 points to meet minimal clinical important difference for numeric pain rating scale. Patient will increase strength of right hip and core to 5/5 to allow for return to prior functional status, normalized gait mechanics and perform ADLs. Perform sitting and walking with decreased report of symptoms/pain in 4 weeks. Planned Interventions, Frequency, and Duration: Current Frequency: 2x/week Duration: 4 weeks Total Number of Visits Planned: 8 Planned Treatment Interventions: Therapeutic exercise;Patient/Family /Caregiver Education;Manual therapy;ModalitiesUltra sound PLAN FOR NEXT VISIT: Will assess tolerance to previous exs. Add standing hip abduction , possible clamshell Patient demonstrates good understanding of plan of care and treatment. The above goals and plan of care were discussed and agreed upon by patient/family. SUBJECTIVE: Louis Oseguera is a 37 year old female seen today for Pain in the groing region on the right. 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 Pain Score: 5/10 Pain Location: Hip - Right Description: Stabbing;Shooting Frequency: Intermittent Post Treatment Pain Score: No Change Pain Location: Hip - Right Post Treatment Pain Description: Aching;Stabbing OBJECTIVE MEASURES WITH LEVEL OF FUNCTION: Hip Observations R Hip Palpation Tenderness: Psoas;Iliacus LE AROM R Hip Flexion: (WNL) R Hip ABduction: 35 Degrees R Hip Internal Rotation: 40 Degrees R Hip External Rotation: 40 Degrees Lumbar Spine Evaluated?: Yes LE Strength L LE Strength: 5/5 R Hip Flexion (L2): 5/5 ( knee flexed, painful when knee straight) R Hip ABduction: 4/5 R Hip ADduction: 5/5 R Hip External Rotation: 4+/5 ( painful) R Knee Extension (L3): 5/5 R Knee Flexion: 5/5 R Ankle Dorsiflexion (L4): 5/5 Functional Strength Trendelenburg: Right Positive Special Tests - Hip and Spine Hip and Spine Special Tests: SLR Test;Prone Knee Bending (Femoral Nerve) Test;NATALIA Test SLR Test: Right Negative Prone Knee Bending (Femoral Nerve) Test: Right Negative NATALIA Test: Right Positive Gait Weight Bearing Status: FWB Gait: Independent Gait Device: None Gait Deviations: Right Lower Extremity Gait Deviations Right Lower Extremity: Stance time decreased;Trendelenburg Education: Education Learning Preferences: Demonstration;Explanati on;Performance;Printed Materials Barriers: None Learning/educational needs: Home exercise program;Plan of Care Education Provided: Yes, see treatment interventions for education provided Education Provided To: Patient Education Mode/Type: Demonstration;Explanati on/Discussion;Literatur e/Printed Materials;Performance Response to Education/Teach Back: States/Identifies;Retur n Demonstration TREATMENT: Evaluation Therapeutic Exercise: 1: pelvic tilts 1x10 2: pelvic tilts with marches 1x10 3: pelvic tilts with bent knee fall outs 1x10 4: standing hip abduction 1x10 right only 5: seated hip adduction isometric. 1x10 6: green rep band hip abduction seated 1x10 Skilled Intervention: Patient was educated in proper exercise technique and purpose for exercises. Skilled judgment was provided in selection of appropriate interventions. Provided written instruction for home exercise program to facilitate proper performance and compliance. Correct performance of therapeutic exercises was facilitated with verbal and visual cuing. Assigned Home Exercise Program: 1: as noted above 2x10 once daily Billing: [facility]: Evaluation - Low Complexity ([id number]) Therapeutic Exercise (80913): 1:1 time: 30 minutes (2 units: 23-37 mins) Total time: 45 minutes ALINE Armijo PT 04/15/2018 1:21 PM Signed 04/15/2018 [facility] REHABILITATION AND SPORTS THERAPY PHYSICAL THERAPY DISCONTINUANCE OF CARE Plan of Care Period: Start of Care Date: 01/06/18 Last Visit Date:same Therapy Program: Patient did not return for follow up care as planned. Please refer to last visit note for interventions provided for this episode of care. Assessment: Unable to formally assess goal achievement due to non-compliance with therapy plan of care. Reason for Discontinuation of Care: Patient has not returned to therapy or scheduled additional follow-up appointments. Nuria Lobo PT Letter Text [facility] PROGRESSon 01-06-2018 Protein mass conc HNO ID: [id number] Author: Nuria Lobo Service: (none) Author Type: Physical Therapist Type: Progress Notes Filed: 01/06/2018 12:34 PM Note Text: Episode Visit Count: 1 Therapist That Will Oversee The Plan Of Care: Nuria Lobo Start of Care Date: 01/06/18 Onset Date: 12/16/17 Plan of Care Certification Date: 01/06/18 Patient Identified by Name and Date of : Yes REHABILITATION AND SPORTS THERAPY PHYSICAL THERAPY EVALUATION PLAN OF CARE: Assessment: Louis Oseguera presents with the chief complaint of pain in right anterior inguinal region. Sx are consistent with possible hip impingement/ labral issue? Supine , sidelying and prone leg lifts painful but with standing able to do with less pain. ER with hip flexion painful but not painful when hip is in neutral flexion. Walking is less painful than sitting and trying to get up. . She presents with impairments of decreased strength and function with pain . . She may benefit from skilled therapy services to improve pain and deficits. . Prognosis: Good Good due to: current objective clinical presentation;good overall health status Goals for Episode of Care: created on 01/06/18 through 02/06/18 [place] in home exercise program. Patient will decrease pain rating by 2 points to meet minimal clinical important difference for numeric pain rating scale. Patient will increase strength of right hip and core to 5/5 to allow for return to prior functional status, normalized gait mechanics and perform ADLs. Perform sitting and walking with decreased report of symptoms/pain in 4 weeks. Planned Interventions, Frequency, and Duration: Current Frequency: 2x/week Duration: 4 weeks Total Number of Visits Planned: 8 Planned Treatment Interventions: Therapeutic exercise;Patient/Family /Caregiver Education;Manual therapy;ModalitiesUltra sound PLAN FOR NEXT VISIT: Will assess tolerance to previous exs. Add standing hip abduction , possible clamshell Patient demonstrates good understanding of plan of care and treatment. The above goals and plan of care were discussed and agreed upon by patient/family. SUBJECTIVE: Louis Oseguera is a 37 year old female seen today for Pain in the groing region on the right. 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 Pain Score: 5/10 Pain Location: Hip - Right Description: Stabbing;Shooting Frequency: Intermittent Post Treatment Pain Score: No Change Pain Location: Hip - Right Post Treatment Pain Description: Aching;Stabbing OBJECTIVE MEASURES WITH LEVEL OF FUNCTION: Hip Observations R Hip Palpation Tenderness: Psoas;Iliacus LE AROM R Hip Flexion: (WNL) R Hip ABduction: 35 Degrees R Hip Internal Rotation: 40 Degrees R Hip External Rotation: 40 Degrees Lumbar Spine Evaluated?: Yes LE Strength L LE Strength: 5/5 R Hip Flexion (L2): 5/5 ( knee flexed, painful when knee straight) R Hip ABduction: 4/5 R Hip ADduction: 5/5 R Hip External Rotation: 4+/5 ( painful) R Knee Extension (L3): 5/5 R Knee Flexion: 5/5 R Ankle Dorsiflexion (L4): 5/5 Functional Strength Trendelenburg: Right Positive Special Tests - Hip and Spine Hip and Spine Special Tests: SLR Test;Prone Knee Bending (Femoral Nerve) Test;NATALIA Test SLR Test: Right Negative Prone Knee Bending (Femoral Nerve) Test: Right Negative NATALIA Test: Right Positive Gait Weight Bearing Status: FWB Gait: Independent Gait Device: None Gait Deviations: Right Lower Extremity Gait Deviations Right Lower Extremity: Stance time decreased;Trendelenburg Education: Education Learning Preferences: Demonstration;Explanati on;Performance;Printed Materials Barriers: None Learning/educational needs: Home exercise program;Plan of Care Education Provided: Yes, see treatment interventions for education provided Education Provided To: Patient Education Mode/Type: Demonstration;Explanati on/Discussion;Literatur e/Printed Materials;Performance Response to Education/Teach Back: States/Identifies;Retur n Demonstration TREATMENT: Evaluation Therapeutic Exercise: 1: pelvic tilts 1x10 2: pelvic tilts with marches 1x10 3: pelvic tilts with bent knee fall outs 1x10 4: standing hip abduction 1x10 right only 5: seated hip adduction isometric. 1x10 6: green rep band hip abduction seated 1x10 Skilled Intervention: Patient was educated in proper exercise technique and purpose for exercises. Skilled judgment was provided in selection of appropriate interventions. Provided written instruction for home exercise program to facilitate proper performance and compliance. Correct performance of therapeutic exercises was facilitated with verbal and visual cuing. Assigned Home Exercise Program: 1: as noted above 2x10 once daily Billing: [facility]: Evaluation - Low Complexity ([id number]) Therapeutic Exercise (36326): 1:1 time: 30 minutes (2 units: 23-37 mins) Total time: 45 minutes Nuria Lobo PT [facility] Vital Signs Date Time Vital Sign Value Performing Clinician Chelo bunn 06-01-2024 08:23-0400 Body height 165.1 cm Veronica Farrell DO Work Phone: [employer] 06-01-2024 08:23-0400 Body mass index (BMI) [Ratio] 43.77 kg/m2 Veronica Farrell DO Work Phone: [employer] 06-01-2024 08:23-0400 Body temperature 98.1 [degF] Veronica Farrell DO Work Phone: [employer] 06-01-2024 08:23-0400 Body weight 119.3 kg Veronica Farrell DO Work Phone: [employer] 06-01-2024 08:23-0400 Diastolic blood pressure 78 mm[Hg] [facility] 06-01-2024 08:23-0400 Heart rate 62 /min Veronica Farrell DO Work Phone: [employer] 06-01-2024 08:23-0400 SaO2% (BldA) [Mass fraction] 98 % Veronica Farrell DO Work Phone: [employer] 06-01-2024 08:23-0400 Systolic blood pressure 115 mm[Hg] Veronica Farrell DO Work Phone: [employer] 04-11-2023 09:40-0500 Body height 165.1 cm Veronica Farrell DO Work Phone: [employer] 04-11-2023 09:40-0500 Body mass index (BMI) [Ratio] 42.43 kg/m2 Veronica Farrell DO Work Phone: [employer] 04-11-2023 09:40-0500 Body weight 115.67 kg Veronica Farrell DO Work Phone: [employer] 04-11-2023 09:40-0500 Diastolic blood pressure 72 mm[Hg] Veronica Farrell DO Work Phone: [employer] 04-11-2023 09:40-0500 Heart rate 76 /min Veronica Farrell DO Work Phone: [employer] 04-11-2023 09:40-0500 SaO2% (BldA) [Mass fraction] 98 % Veronica Farrell DO Work Phone: [employer] 04-11-2023 09:40-0500 Systolic blood pressure 118 mm[Hg] Veronica Farrell DO Work Phone: [facility] 03-26-2022 09:57-0500 Body height 165.[address] Indio Londono Work Phone: [facility] 03-26-2022 09:57-0500 Body mass index (BMI) [Ratio] 45.4 kg/m2 Dr. Indio Londono Work Phone: [facility] 03-26-2022 09:57-0500 Body weight 123.[address] Indio Londono Work Phone: [facility] 03-26-2022 09:57-0500 Diastolic blood pressure 75 mm[Hg] Dr. Indio Londono Work Phone: [facility] 03-26-2022 09:57-0500 Systolic blood pressure 114 mm[Hg] Dr. Indio Londono Work Phone: [facility] 09-24-2021 06:16-0400 Body height 165.[address] Indio Londono Work Phone: [facility] Work Phone: 09-24-2021 06:16-0400 Body mass index (BMI) [Ratio] 48.9 kg/m2 Dr. Indio Londono Work Phone: [facility] Work Phone: 09-24-2021 06:16-0400 Body temperature 98.2 [degF] Dr. Indio Londono Work Phone: [facility] Work Phone: 09-24-2021 06:16-0400 Body weight 133.[address] Indio Londono Work Phone: [facility] Work Phone: 09-24-2021 06:16-0400 Diastolic blood pressure 96 mm[Hg] Dr. Indio Londono Work Phone: [facility] Work Phone: 09-24-2021 06:16-0400 Heart rate 71 /min Dr. Indio Londono Work Phone: [facility] Work Phone: 09-24-2021 06:16-0400 Respiratory rate 14 /min Dr. Indio Londono Work Phone: [facility] Work Phone: 09-24-2021 06:16-0400 SaO2% (BldA) [Mass fraction] 98 % Dr. Indio Londono Work Phone: [facility] Work Phone: 09-24-2021 06:16-0400 Systolic blood pressure 142 mm[Hg] Dr. Indio Londono Work Phone: [facility] Work Phone: 08-03-2021 10:11-0400 Body mass index (BMI) [Ratio] 49.3 kg/m2 Dr. Indio Londono Work Phone: [facility] Work Phone: 08-03-2021 10:11-0400 Body weight 134.[address] Indio Londono Work Phone: [facility] Work Phone: 08-03-2021 10:11-0400 Diastolic blood pressure 110 mm[Hg] Dr. Indio Londono Work Phone: [facility] Work Phone: 08-03-2021 10:11-0400 Systolic blood pressure 140 mm[Hg] Dr. Indio Londono Work Phone: [facility] Work Phone: Encounters Encounter Date Encounter Type Care Provider Facility Start: 10-27-2024 End: 10-27-2024 Orders Only Tayo Moreau DO [facility] Comment on above: Edema, unspecified t ype (Primary Dx) Start: 10-25-2024 End: 10-25-2024 Orders Only Tayo Moreau DO [facility] Comment on above: Edema, unspecified t ype (Primary Dx) Start: 06-18-2024 Encounter for gynecological examination (general) (routine) without abnormal findings Roberta Tyler [facility] Start: 06-18-2024 End: 06-18-2024 ambulatory Roberta Scott Facility:[facility] Start: 06-03-2024 End: 06-03-2024 ambulatory Roberta Scott Facility:[facility] Start: 06-01-2024 End: 06-01-2024 Patient encounter status Veronica Farrell DO Work Phone: [facility] Start: 06-01-2024 End: 06-01-2024 Periodic preventive med est patient 40-64yrs Veronica Farrell DO Work Phone: [facility] [place] Comment on above: Well adult exam (Zarina arleth Dx); Screening, lipid; Screening for diabetes mellitus; Other iron deficiency anemia; Benign essential HTN; Opioid dependence in remission (HCC); Need for hepatitis C screening test; Need for Tdap vaccination Start: 06-01-2024 End: 06-01-2024 ambulatory [facility] Start: 03-29-2024 End: 03-29-2024 ambulatory Lilliam Patton Facility:[facility] Start: 11-11-2023 End: 11-11-2023 ambulatory [facility] Facility:[facility] [place] [place] Start: 04-18-2023 End: 04-18-2023 ambulatory [facility] Work Phone: Start: 04-18-2023 End: 04-18-2023 Patient encounter procedure [facility] Work Phone: Start: 04-11-2023 End: 04-11-2023 Patient encounter status Veronica Farrell DO Work Phone: [facility] Start: 04-11-2023 End: 04-11-2023 Periodic preventive med est patient 40-64yrs Veronica Farrell DO Work Phone: [facility] Comment on above: Well adult exam (Zarina arleth Dx); Right hip pain; Screening for diabetes mellitus; Benign essential HTN; Primary insomnia; Screening mammogram for breast cancer; Screening, lipid; Onychomycosis Start: 11-05-2022 Rk grahams DO Work Phone: [facility] Start: 04-30-2022 End: 04-30-[address] Indio Londono Work Phone: [facility] Work Phone: Start: 04-30-2022 End: 04-30-[address] Indio Londono Work Phone: [facility] Start: 03-26-2022 End: 03-26-[address] Indio Londono Work Phone: [facility] Work Phone: Start: 03-26-2022 End: 03-26-[address] Indio Londono Work Phone: [facility] Start: 03-26-2022 End: 03-26-[address] Indio Londono Work Phone: [facility] Start: 10-02-2021 End: 10-02-[address] Indio Londono Work Phone: [facility] Start: 09-24-2021 End: 09-24-[address] Indio Londono Work Phone: [facility] Start: 08-03-2021 End: 08-03-[address] Indio Londono Work Phone: [facility] Start: 07-13-2018 Patient encounter procedure VERONICA FARRELL D.O. [facility] Start: 01-06-2018 End: 01-07-2018 Patient encounter procedure NURIA LOBO [facility] Procedures Date Procedure Procedure Detail Performing Clinician Start: 06-01-2024 Lipid 1996 panel - S pablo or Plasma Tayo Lizzeth DO Work Phone: Start: 04-30-2022 End: 02-14-[address] Indio Londono Work Phone: Plan of Treatment Date Care Activity Detail Author Start: 10-08-2055 RSV Immunization for Adults (1 - 1-dose 75+ series) RSV Immunization for Adults (1 - 1-dose 75+ series) [facility] Start: 2040 RSV Immunization age d 60 or older (1 - 1-dose 60+ series) RSV Immunization aged 60 or older (1 - 1-dose 60+ series) [facility] Start: 06-01-2034 DTaP/Tdap/Td Vaccine s (3 - Td or Tdap) DTaP/Tdap/Td Vaccines (3 - Td or Tdap) [facility] Start: 2030 Zoster Vaccines (1 of 2) Zoster Vacc travis (1 of 2) [facility] Start: 06-01-2029 Lipid panel Lipid Panel [facility] Start: 06-02-2025 End: 06-02-2025 Patient encounter procedure 06/02/2025 8:40 AM EDT Office Visit [address] [place], [place] [id number] Veronica Farrell, [address] [place] [address] [place] [address] [facility] Start: 06-01-2025 Diabetes mellitus screening Diabetes Screening [facility] Start: 12-02-2024 Depression Monitoring Depression Mon itoring [facility] Start: 11-15-2024 Influenza vaccination Influenza Vacc ine (#1) [facility] Start: 10-27-2024 End: 10-27-2025 CBC W Auto Differential panel - Blood CBC auto differential Lab Routine Edema, unspecified type Expected: 10/27/2024 (Approximate), Expires: 10/27/2025 [facility] Work Phone: Comment on above: Expected: 10/27/2024 (Approximate), Expires: 10/27/2025 Start: 10-27-2024 End: 10-27-2025 Comprehensive metabolic 1998 panel - Serum or Plasma Comprehensive metabolic panel Lab Routine Edema, unspecified type Expected: 10/27/2024 (Approximate), Expires: 10/27/2025 [facility] Comment on above: Expected: 10/27/2024 (Approximate), Expires: 10/27/2025 Start: 10-27-2024 End: 10-27-2025 Thyrotropin [Units/volume] in Serum or Plasma TSH Lab Routine Edema, unspecified type Expected: 10/27/2024 (Approximate), Expires: 10/27/2025 [facility] Comment on above: Expected: 10/27/2024 (Approximate), Expires: 10/27/2025 Start: 10-25-2024 End: 10-25-2025 CBC W Auto Differential panel - Blood CBC auto differential Lab STAT Edema, unspecified type Expected: 10/25/2024 (Approximate), Expires: 10/25/2025 [facility] Work Phone: Comment on above: Expected: 10/25/2024 (Approximate), Expires: 10/25/2025 Start: 10-25-2024 End: 10-25-2025 Comprehensive metabolic 1998 panel - Serum or Plasma Comprehensive metabolic panel Lab STAT Edema, unspecified type Expected: 10/25/2024 (Approximate), Expires: 10/25/2025 [facility] Comment on above: Expected: 10/25/2024 (Approximate), Expires: 10/25/2025 Start: 10-25-2024 End: 10-25-2025 Thyrotropin [Units/volume] in Serum or Plasma TSH Lab STAT Edema, unspecified type Expected: 10/25/2024 (Approximate), Expires: 10/25/2025 [facility] Comment on above: Expected: 10/25/2024 (Approximate), Expires: 10/25/2025 Start: 06-01-2024 End: 06-01-2025 CBC panel - Blood by Automated count CBC Lab Routine Benign essential HTN Expected: 06/01/2024 (Approximate), Expires: 06/01/2025 [facility] Comment on above: Expected: 06/01/2024 (Approximate), Expires: 06/01/2025 Start: 06-01-2024 End: 06-01-2025 Comprehensive metabolic 1998 panel - Serum or Plasma Comprehensive metabolic panel Lab Routine Benign essential HTN Expected: 06/01/2024 (Approximate), Expires: 06/01/2025 [facility] Comment on above: Expected: 06/01/2024 (Approximate), Expires: 06/01/2025 Start: 06-01-2024 End: 06-01-2025 Hemoglobin A1c measurement Hemoglobin A1c Lab Routine Screening for diabetes mellitus Expected: 06/01/2024 (Approximate), Expires: 06/01/2025 [facility] Comment on above: Expected: 06/01/2024 (Approximate), Expires: 06/01/2025 Start: 06-01-2024 End: 06-01-2025 Hepatitis C virus Ab [Presence] in Serum or Plasma by Immunoassay Hepatitis C antibody Lab Routine Need for hepatitis C screening test Expected: 06/01/2024 (Approximate), Expires: 06/01/2025 [facility] Comment on above: Expected: 06/01/2024 (Approximate), Expires: 06/01/2025 Start: 06-01-2024 End: 06-01-2025 Lipid 1996 panel - Serum or Plasma Lipid panel Lab Routine Screening, lipid Expected: 06/01/2024 (Approximate), Expires: 06/01/2025 [facility] System Work Phone: Comment on above: Expected: 06/01/2024 (Approximate), Expires: 06/01/2025 Start: 03-17-2024 DTaP/Tdap/Td Vaccine s (2 - Td or Tdap) DTaP/Tdap/Td Vaccines (2 - Td or Tdap) [facility] Start: 11-16-2023 COVID-19 Vaccine ( season) COVID-19 Vaccine ( season) [facility] Start: 11-16-2023 Influenza vaccination Influenza Vacc ine (#1) [facility] Start: 04-30-2023 Screening for malign ant neoplasm of breast Mammogram [facility] Start: 04-11-2023 End: 04-11-2024 CBC panel - Blood by Automated count CBC Lab Routine Benign essential HTN Expected: 04/11/2023 (Approximate), Expires: 04/11/2024 [facility] Comment on above: Expected: 04/11/2023 (Approximate), Expires: 04/11/2024 Start: 04-11-2023 End: 04-11-2024 Comprehensive metabolic 1998 panel - Serum or Plasma Comprehensive metabolic panel Lab Routine Benign essential HTN Expected: 04/11/2023 (Approximate), Expires: 04/11/2024 [facility] Comment on above: Expected: 04/11/2023 (Approximate), Expires: 04/11/2024 Start: 04-11-2023 End: 06-09-2024 DBT Breast - bilateral screening Bilateral screening mammogram with tomosynthesis Imaging Routine Screening mammogram for breast cancer Expected: 04/11/2023, Expires: 06/09/2024 [facility] System Work Phone: Comment on above: Expected: 04/11/2023 , Expires: 06/09/2024 Start: 04-11-2023 End: 04-11-2024 Hemoglobin A1c measurement Hemoglobin A1c Lab Routine Screening for diabetes mellitus Expected: 04/11/2023 (Approximate), Expires: 04/11/2024 [facility] Comment on above: Expected: 04/11/2023 (Approximate), Expires: 04/11/2024 Start: 04-11-2023 End: 04-11-2024 Lipid 1996 panel - Serum or Plasma Lipid panel Lab Routine Screening, lipid Expected: 04/11/2023 (Approximate), Expires: 04/11/2024 [facility] Comment on above: Expected: 04/11/2023 (Approximate), Expires: 04/11/2024 Start: 11-15-2022 COVID-19 Vaccine () COVID-19 Vaccine () [facility] Start: 11-15-2022 Influenza vaccination Influenza Vacc ine (#1) [facility] Start: 03-26-2022 Liquid based cervica l cytology screening [facility] Work Phone: Start: 05-18-2021 COVID-19 Vaccine (2 - Booster for Citlalli series) COVID-19 Vaccine (2 - Booster for Citlalli series) [facility] Start: 2020 Screening for malign ant neoplasm of breast Mammogram [facility] Start: 2010 Screening for malign ant neoplasm of cervix [facility] Start: 2001 Screening for malign ant neoplasm of cervix Pap Smear [facility] Start: 1998 Diabetes mellitus screening Diabetes Screening [facility] Start: 1998 Hepatitis C screening Hepatitis C Sc reening [facility] Start: 04-14-1998 Hepatitis B Vaccines (2 of 3 - 3-dose series) Hepatitis B Vaccines (2 of 3 - 3-dose series) [facility] Start: 1993 Varicella vaccination Varicell a Vaccines (1 of 2 - 13+ 2-dose series) [facility] Start: 1992 Depresssion Monitoring Depresssion M onitoring [facility] Start: 1981 MMR Vaccines (1 of 1 - Standard series) MMR Vaccines (1 of 1 - Standard series) [facility] Start: 1981 Varicella vaccination Varicell a Vaccines (1 of 2 - 2-dose childhood series) [facility] Start: 1980 HIV screening HIV Screening [facility] Start: 1980 Lipid panel Lipid Panel [facility] MG Breast - bilatera l Screening [facility] Work Phone: Path report.final Dx Spec [facility] Work Phone: Immunizations Immunization Date Immunization Notes Care Provider [facility] 06-01-2024 tetanus toxoid, redu marvin diphtheria toxoid, and acellular pertussis vaccine, adsorbed Veronica Farrell DO Work Phone: [facility] 03-23-2021 Covid (Moderna) Dr. Indio chang Work Phone: [facility] 03-23-2021 Citlalli SARS-CoV-2 Vaccination Veronica Farrell DO Work Phone: [facility] 12-21-2015 influenza, injectabl e, quadrivalent, contains preservative Veronica Farrell DO Work Phone: [facility] 12-21-2015 influenza virus vaccine, unspecified formulation Veronica Farrell DO Work Phone: [facility] 01-05-2015 influenza virus vaccine, unspecified formulation Veronica Farrell DO Work Phone: [facility] 03-17-2014 tetanus toxoid, redu marvin diphtheria toxoid, and acellular pertussis vaccine, adsorbed Veronica Farrell DO Work Phone: [facility] 01-14-2014 influenza virus vaccine, unspecified formulation Veronica Farrell DO Work Phone: [facility] 03-17-1998 hepatitis B vaccine, adult dosage Veronica Farrell DO Work Phone: [facility] Payers Date Payer Category Payer [employer] Varun Foley [facility] - [facility] [id number] 2024 Unknown [id number] 2023 Self-pay [id number] 2021 Unknown [id number] 1980 Unknown [id number] Private Health Insurance [id number] Unknown Unknown [id number] Unknown [id number] Unknown [id number] Unknown [id number] Unknown [id number] Social History Date Type Detail Facility Start: 09-24-2021 End: 03-26-2022 Tobacco smoking status NHIS Unknown if ever smoked [facility] Start: 07-17-2020 Non-smoker [facility] Start: 1980 Sex Assigned At Female [facility] Tobacco smoking stat us NHIS Never smoked tobacco [facility] Start: 03-01-2022 End: 06-01-2024 Alcohol intake Ex-drinker (finding) [facility] Start: 03-01-2022 End: 06-01-2024 History of Social function [facility] Start: 03-01-2022 End: 06-01-2024 Tobacco use panel [facility] Start: 03-01-2022 Alcohol Comment Drank 750ml of Vodka 4-5 times a week for several years [facility] Start: 01-03-2022 Gender identity Identifies as female gender (finding) [facility] Start: 01-03-2022 Sexual orientation Heterosexual (finding) [facility] How often do you nee d to have someone help you when you read instructions, pamphlets, or other written material from your doctor or pharmacy [SILS] Never [facility] Has the [employer], [employer], or water [employer] threatened to shut off services in your home in past 12Mo No [facility] Do you belong to any clubs or organizations such as mormonism groups, unions, fraternal or athletic groups, or school groups? Yes [facility] Are you now , , , , never or living with a partner? Living with partner [facility] How often to you hav e a drink containing alcohol? Never [facility] Do you feel stress - tense, restless, nervous, or anxious, or unable to sleep at night because your mind is troubled all the time - these days [OSQ] Not at all [facility] (I/We) worried wheth er (my/our) food would run out before (I/we) got money to buy more. Never true [facility] Start: 10-15-2021 Sex Female (finding) [facility] Medical Equipment Procedure Code Equipment Code Equipment Origin al Text Equipment Identifier Dates Cystoscopy, with retrograde pyelogram, ureteroscopy, laser procedure, and stent inser STENT,URETERAL PIGTAIL [id number] FDA Start: 04-09-2021 Cystoscopy, with retrograde pyelogram, ureteroscopy, laser procedure, and stent inser STENT,URETERAL PIGTAIL [id number] FDA Start: 04-09-2021 Cystoscopy, with retrograde pyelogram, ureteroscopy, laser procedure, and stent inser STENT,URETERAL PIGTAIL [id number] FDA Start: 04-09-2021 Cystoscopy, with retrograde pyelogram, ureteroscopy, laser procedure, and stent inser STENT,URETERAL PIGTAIL [id number] FDA Start: 04-09-2021 Clinical Notes 03-26-2022 to 06-01-2024 Veronica Farrell, DO - 06/01/2024 8:20 AM EDTChusha Farrell, DO - 04/11/2023 9:40 AM ESTTelephone Encounter - Lilliam Chilel MA - 11/05/2022 12:21 PM EDT Note Date & Type Note Facility 06-01-2024 History of Presen t illness Narrative Images from the original note were not included. [facility] - [address] [facility] [id number] Visit type: Established Patient Reason for Visit: Annual Exam (Patient asking for Lisinopril/hydrochlorothiazide be in separate pill form due to it cost a lot more together . ) Assessment and Plan Diagnoses and all orders for this visit: Well adult exam UTD on immunizations. Encouraged avoidance of tobacco and alcohol, safe sexual practice. Healthy diet with plenty of fruits, vegetables, whole grains, and lean proteins. Exercise 3-5 times per week for 30-45 minutes. Wear seatbelts. Wear sunscreen. Reviewed age appropriate screening tests. Screening, lipid - Lipid panel; Future Screening for diabetes mellitus - Hemoglobin A1c; Future Other iron deficiency anemia Chronic, stable, continue current management plan Check cbc today Benign essential HTN - Comprehensive metabolic panel; Future - CBC; Future - hydroCHLOROthiazide (HYDRODiuril) 25 MG tablet; Take 1 tablet (25 mg) by mouth daily. - lisinopril 40 MG tablet; Take 1 tablet (40 mg) by mouth daily. Chronic, stable, continue current management plan Opioid dependence in remission (HCC) - in remission, no concerns at this time Need for hepatitis C screening test - Hepatitis C antibody; Future Need for Tdap vaccination - Tdap vaccine greater than or equal to 7 years old IM Other orders - omeprazole OTC (PriLOSEC OTC) 20 MG EC tablet; Take 1 tablet (20 mg) by mouth every morning (before breakfast). Do not crush, chew, or split. No follow-ups on file. Subjective HPI Not exercising much Has been [facility] History of HYPERTENSION and anemia GERD is OK on omeprazole Had a mammogram at [place] recently Review of Systems Constitutional: Negative for appetite [...] bleeding, vaginal discharge and vaginal pain. Musculoskeletal: Negative for arthralgias, back pain, joint swelling and myalgias. Skin: Negative for color change, rash and wound. Neurological: Negative for dizziness, tremors, seizures, speech difficulty, weakness, numbness and headaches. Hematological: Negative for adenopathy. Does not bruise/bleed easily. Psychiatric/Behavioral: Negative for agitation, decreased concentration, dysphoric mood and sleep disturbance. The patient is not nervous/anxious. Allergies Allergen Reactions Morphine Other reaction(s): Other: See Comments Other reaction(s): Other: See Comments headaches headaches Topiramate Other reaction(s): Other: See Comments Kidney stones Kidney stones Current Outpatient Medications: ferrous sulfate 325 (65 Fe) MG tablet, Take 1 tablet (325 mg) by mouth daily (with breakfast)., Disp: 30 tablet, Rfl: 11 loratadine (Claritin) 10 MG tablet, Take 1 tablet (10 mg) by mouth daily., Disp: 90 tablet, Rfl: 3 hydroCHLOROthiazide (HYDRODiuril) 25 MG tablet, Take 1 tablet (25 mg) by mouth daily., Disp: 90 tablet, Rfl: 3 lisinopril 40 MG tablet, Take 1 tablet (40 mg) by mouth daily., Disp: 90 tablet, Rfl: 3 omeprazole OTC (PriLOSEC OTC) 20 MG EC tablet, Take 1 tablet (20 mg) by mouth every morning (before breakfast). Do not crush, chew, or split., Disp: 90 tablet, Rfl: 3 Past Medical History: Diagnosis Date Allergic rhinitis Anemia Anxiety Deficiency of multiple nutrient elements Depression Gastritis GERD (gastroesophageal reflux disease) Hypertension Insomnia due to mental disorder or depression Intestinal malabsorption Kidney stone Migraine Obesity Obstructive sleep apnea Peptic ulceration Substance abuse (CMS/HCC) ([facility]) Social History Socioeconomic History Marital status: Tobacco Use Smoking status: Never Smokeless tobacco: Never Substance and Sexual Activity Alcohol use: Not Currently Comment: Drank 750ml of Vodka 4-5 times a week for several years Drug use: Not Currently Frequency: 4.0 times per week Types: Oxycodone Sexual activity: Yes Partners: Male control/protection: Implant Social Drivers of Health Financial Resource Strain: Low Risk (06/01/2024) Overall Financial Resource Strain (CARDIA) Difficulty of Paying Living Expenses: Not hard at all Food Insecurity: No Food Insecurity (06/01/2024) Hunger Vital Sign Worried About Running Out of Food in the Last Year: Never true Ran Out of Food in the Last Year: Never true Transportation Needs: No Transportation Needs (06/01/2024) PRAPARE - Transportation Lack of Transportation (Medical): No Lack of Transportation (Non-Medical): No Physical Activity: Inactive (06/01/2024) Exercise Vital Sign Days of Exercise per Week: 0 days Minutes of Exercise per Session: 0 min Stress: No Stress Concern Present (06/01/2024) [place] [employer] - Occupational Stress Questionnaire Feeling of Stress : Not at all Social Connections: Socially Integrated (06/01/2024) Social Connection and Isolation Panel [NHANES] Frequency of Communication with Friends and Family: More than three times a week Frequency of Social Gatherings with Friends and Family: Once a week Attends Zoroastrianism Services: More than 4 times per year Active Member of Clubs or Organizations: Yes Attends Club or Organization Meetings: 1 to 4 times per year Marital Status: Living with partner Housing Stability: Low Risk (06/01/2024) Housing Stability Vital Sign Unable to Pay for Housing in the Last Year: No Number of Times Moved in the Last Year: 0 Homeless in the Last Year: No Past Surgical History: Procedure Laterality Date BARIATRIC SURGERY 11.06.09 CHOLECYSTECTOMY 08/11/15 [facility] CHOLECYSTECTOMY DENTAL SURGERY GASTRIC BYPASS [facility]- [facility] 2010 HERNIA REPAIR 11.06.09 - Hiatal LITHOTRIPSY 11/2012,02/2013 [...] Keith Vision loss Brother Keith Objective BP 115/78 Pulse 62 Temp 36.7 C (98.1 F) Ht 5' 5 (1.651 m) Wt 263 lb (119 kg) SpO2 98% BMI 43.77 kg/m Physical Exam Vitals and nursing note reviewed. Constitutional: General: She is not in acute distress. Appearance: Normal appearance. She is obese. She is not ill-appearing. HENT: Head: Normocephalic [...] Medications Discontinued During This Encounter Medication Reason lisinopril-hydroCHLOROthiazide 20-12.5 MG tablet Cost of medication ciclopirox (Penlac) 8 % solution Med list cleanup buPROPion XL (Wellbutrin XL) 300 MG 24 hr tablet Med list cleanup omeprazole (PriLOSEC) [address] capsule Med list cleanup traZODone (Desyrel) 50 MG tablet Med list cleanup hydroCHLOROthiazide (HYDRODiuril) 25 MG tablet lisinopril 40 MG tablet omeprazole OTC (PriLOSEC OTC) 20 MG EC tablet Reorder Veronica Farrell DO 06/01/2024 9:30 AM documented in this encounter [facility] 04-11-2023 History of Presen t illness Narrative Images from the original note were not included. [facility] [address] [place] [address] [address] [facility] [address] Visit type: Established Patient Reason [...] Obstructive sleep apnea Peptic ulceration Substance abuse ([facility]) ([facility]) Social History Socioeconomic History Marital status: Tobacco [...] DENTAL SURGERY GASTRIC BYPASS [facility]- [facility] 2010 HERNIA REPAIR 11.06.09 - Hiatal LITHOTRIPSY 11/2012,02/2013 [...] 04/11/2023 12:17 PM documented in this encounter [facility] 11-05-2022 Telephone encount er Note Recent Visits Date Type Provider Dept 03/01/22 Office Visit Veronica Farrell DO [facility] Showing recent visits within past 365 [...] prescription showing no refills in chart): Yes [facility] 11-05-2022 Miscellaneous Notes Formattin g of this note is different from the original. Recent Visits Date Type Provider Dept 03/01/22 Office Visit Veronica Farrell DO [facility] Showing recent visits within past 365 [...] in chart): Yes documented in this encounter [facility] 03-26-2022 Note [facility] Pap Smear Specimen Adequacy March 26, 2022 2:41pm Comment . Satisfactory for evaluation. No endocervical component is identified. Comment on above: Satisfactory for bere luation. No endocervical component is identified. Evaluation note Diagnosis Onset Date Encounter for removal and re insertion of Nexplanon acute Infected dental caries acute [facility] Work Phone: Evaluation note* Diagnosis Onset Date Resolution Status Encounter for routine gynecological examination noneactive [facility] Work Phone: Evaluation note* Diagnosis Well adult exam- Primary Routine general medical examination at a health care facility Right hip pain Pain in joint, pelvic region and thigh Screening for diabetes mellitus Benign essential HTN Primary insomnia Persistent disorder of initiating or maintaining sleep Screening mammogram for breast cancer Screening, lipid Onychomycosis Dermatophytosis of nail [facility] noteNo assessment information [facility] Phone: Evaluation note* Diagnosis Well adult exam- Primary Routine general medical examination at a health care facility Screening, lipid Screening for diabetes mellitus Other iron deficiency anemia Benign essential HTN Opioid dependence in remission (HCC) Opioid type dependence, in remission Need for hepatitis C screening test Special screening examination for other specified viral diseases Need for Tdap vaccination Need for prophylactic vaccination with combined ggjadqoeww-jyuhbcg-wrulamyql (DTP) vaccine [facility]* Diagnosis Edema, unspecified type- Primary documented in this encounter [facility] Summary Purpose Family History No Family History Records Found Relationship Condition Age at Onset Recorded Date/T adis father Hypertension Unknown Addiction Unknown grandfather Cardiac disease Unknown Diabetes mellitus Unknown Obesity Unknown Advance Directives No Advanced Directives Records Found Advance Directive Response Recorded Date/ Time Living Will No April 23 11:34am Power of Electrical Design Technologist No April 23, 2021 11:34am Advance Directive Response Recorded Date/ Time Living Will No April 23 10:34am Power of Electrical Design Technologist No April 23, 2021 10:34am Chief Complaint and Reason for Visit Chief Complaint consult Nexplanon re moval / discuss other options PT STATES IMPACTED TOOTH Reason for Visit Encounter for remova l and reinsertion of Nexplanon Infected dental caries Chief Complaint Annual (PUBLICATIONS DESIGNER) SCREENING Reason for Visit Encounter for routin e gynecological examination Chief Complaint Annual (PUBLICATIONS DESIGNER) SCREENING SCREENING Reason for Visit Encounter for routin e gynecological examination Reason for Referral Specialty Diagnoses / Procedures Referred By Casey garcia Referred To Contact Physical Therapy Diagnoses Right hip pain Procedures OK OFFICE/OUTPATIENT [facility] 60 MINUTES Veronica Farrell, DO [address] [facility] [address] [place] [id number] Referral ID Status Reason Start Date Expiration Date Visits Requested Visits Authorized [id number] Pending Review Eval and Treat 04/11/2023 10/08/2023 99 99 Additional Source Comments INFORMATION SOURCE (unrecogn ized section and content) DATE CREATED AUTHOR 04/30/2018 [facility] DATE CREATED AUTHOR AUTHOR'S ORGANIZ ATION 06/24/2018 [facility] DATE CREATED AUTHOR AUTHOR'S ORGANIZ ATION 06/20/2024 [facility] DATE CREATED AUTHOR AUTHOR'S ORGANIZ ATION 01/19/2025 [facility] Goals (unrecognized section and content) Goals may be documented in a n alternate sectionGoals may be documented in an alternate sectionGoals may be documented in an alternate sectionGoals may be documented in an alternate section Care Teams (unrecognized sec tion and content) Team Status: Active Member Role Status Dates Veronica Farrell Family Provider Active Dr. Indio Londono MD Primary Care Provider Active Team Status: Inactive Member Role Status Dates Dr. Indio Londono MD Primary Care Provider, Referring Provider Active Dr. Lilliam Patton DO Attending Provider Activ e Team Status: Inactive Member Role Status Dates Dr. Indio Londono MD Primary Care Provider Active Dr. Lilliam Patton DO Attending Provider, Refe rring Provider Active Team Status: Inactive Member Role Status Dates Dr. Indio Londono MD Primary Care Provi rosangela, Attending Provider, Referring Provider Active Respiratory Services Manager Relationship Specialty Start Date End Date Veronica Farrell DO [address] [place] [address] PCP - General 09/15/14 Respiratory Services Manager Relationship Specialty Start Date End Date Veronica Farrell DO [address] [place] [address] PCP - General 09/15/14 Team Status: Active Member Role Status Dates Veronica GREENBERG Family Provider Active VERONICA FARRELL DO Primary Care Provider Active Team Status: Inactive Member Role Status Dates VERONICA FARRELL DO Primary Care Provi rosangela, Attending Provider, Referring Provider Active Respiratory Services Manager Relationship Specialty Start Date End Date Veronica Farrell DO [address] [place] [address] PCP - General 09/15/14 Respiratory Services Manager Relationship Specialty Start Date End Date Veronica FarrellDO [address] [address] PCP - General 09/15/14 Reason for Visit (unrecogniz ed section and content) Reason Onset Date Comments Med Refill 11/05/2022 Reason Comments Med Refill Pt declines flu shot Reason Comments Annual Exam Patient asking for L isinopril/hydrochlorothiazide be in separate pill form due to it cost a lot more together . FOR RECORDS PERTAINING TO PATIENTS WHO ARE [...] BE BASED ON THE PRIMARY CLINICAL RECORDS. [employer] [facility]. provides no warranty or guarantee of the accuracy or completeness of information in this document.
--- OUTSIDE RECORDS SUMMARY | 2025-01-27 07:58 | XMS RPT_ITS | CCD ---
Author Organization 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 Referring Unavail able Veronica Farrell Primary Care Unavailable Karen Mcclendon Attending Unavailable Dr. Indio Londono Primary Care Provider [phone] Dr. Indio Londono Referring Provider [phone] Lilliam Patton Attending Provider YANCY Garay Attending Provider [phone] Dr. Indio Londono Primary Care Provider [phone] Dr. Indio Londono Referring Provider [phone] Lilliam Patton Attending Provider [phone] Veronica Farrell DO Primary Care Provider Veronica Farrell DO Primary Care Provider Roberta Scott Attending Unavailable Roberta Scott Attending Unavailable Lilliam Patton Attending Unavailsonal e Lilliam Patton Referring Unavailabl e VERONICA FARRELL Primary Care Unavailable VERONICA FARRELL Primary Care Unavailable VERONICA FARRELL Referring Unavailable Michael Glover Attending Unavailable VERONICA FARRELL Attending Unavailable VERONICA FARRELL Primary Care Unavailable VERONICA FARRELL Attending Unavailable VERONICA FARRELL Primary Care Unavailable Allergies Allergy Classification Reported Allergen(s) Allergy Type Date of Onset Reaction(s) Facility (11 sources) Morphine; Translations: [MORPHINE] Drug Allergy 09-30-2015 Other [facility] Repository (11 sources) topiramate; Translations: [TOPIRAMATE] Drug Allergy 09-15-2014 Other [facility] Repository Medications Current Medications Medication Drug [...] EACH PO 4 TIMES DAILY NEEDED 12 3 December 16, 2017 11:00pm December 19, 2017 [...] 200 MG PO THREE TIMES A DAY 08 16February 06, 2021 12:00am February 24, 2021 12:29pm predniSONE 10 mg oral tablet (8 sources) Start: 03-19-2020 End: 07-02-2020 Prednisone Discontinued 10 MG PO daily 30 June 19, 2020 11:00pm July 01, 2020 [...] essential hypertension; Translations: [Essential (primary) hypertension] Onset: 01-25-2025 04-11-2023 Chronic Fever of unknown origin (4 [...] Test Name Value Interpretation Reference Range Facility Progress Noteon 01-25-2025 Progress Note [facility] [address] [address] Patient was identified and seen today via Telehealth by agreement and consent. I used the following Telehealth technology: Audio and video capabilities. Patient location: Patient Location: Home. This patient encounter is appropriate and reasonable under the circumstances: behavioral health . The patient has been advised of the potential risks and limitations of this mode of treatment (including but not limited to the absence of in-person examination) and has agreed to be treated in a remote fashion in spite of them. Any and all of the patient's/patient's family's questions on this issue have been answered and I have made no promises or guarantees to the patient. The patient has also been advised to contact this office for worsening conditions or problems, and seek emergency medical treatment and/or call 911 if the patient deems either necessary. The patient stated that they are currently in the state [facility]. If the patient is a minor, permission has been obtained by the parent or guardian for the patient to receive medical care at this visit. Louis Jimenez is a 44 y.o. female who presents for No chief complaint on file. Assessment/Plan 1. Benign essential HTN (I10) - chronic, stable - Current regimen of lisinopril 20mg every morning and hydrochlorothiazide 50mg daily has maintained good blood pressure control for approximately six weeks - Concern regarding hydrochlorothiazide 50mg dose, as typical maximum is 25mg - Labs ordered for kidney function and potassium to ensure safety of current regimen; reordering previous labs from October to ensure results come to current provider - Patient will obtain labs tomorrow - Prescription for lisinopril 20mg tablets to avoid need for cutting pills - Will hold hydrochlorothiazide prescription until lab results reviewed - Continue current regimen pending lab results Other Clinical Considerations: - Cholesterol: - Last checked in May, slightly elevated but not concerning - Plan to repeat in spring Diagnoses and all orders for this visit: Benign essential HTN (Primary) - TSH; Future - Basic metabolic panel; Future - CBC; Future - lisinopril 20 MG tablet; Take 1 tablet (20 mg) by mouth daily. - TSH - Basic metabolic panel - CBC No follow-ups on file. Subjective History of Present Illness Louis, a 44-year-old female, presents for follow-up regarding blood pressure medication adjustments. She reports that several weeks ago, while working out and losing weight, she became symptomatic despite adequate water intake and stopped taking her medications for several days. This resulted in significant fluid retention with 7-8 pounds of weight gain that took a couple of weeks to resolve. For approximately six weeks, she has been taking lisinopril 20mg every morning and increased hydrochlorothiazide to 50mg, which has maintained her blood pressure in a good range. She checks her blood pressure every morning. She denies any current side effects. She notes occasional missed doses on weekends when her pills are in her office during the week. When she misses the hydrochlorothiazide, she experiences rapid fluid retention and weight gain. She has been cutting her lisinopril pills. I obtained verbal consent from the patient and/or patient's guardian to use ambient listening technology during this encounter before the ambient technology was engaged. Objective There were no vitals taken for this visit. Physical Exam Results Normal [facility] 36on 01-18-2025 36 See previous emails from this patient. I believe she needs refill on lisinopril 20 mg a day and hydrochlorothiazide 50 mg a day. She preferred you to handle the refills. Thank you Normal [facility] Ic Engineer Office Visit Reporton 06-18-2024 Ic Engineer Office Visit Report [facility] [address] [place] [address], [address] [place] [address] OFFICE VISIT Date of Service: 06/18/24 MR#: [id number] Acct: [id number] Name: LOUIS JIMENEZ Rep #: [id number] : 1980 Provider: DEAN Haider ams Age/Sex: 43/F [place] [facility] [place] Status: Signed Intake Vital Signs 11/11/23 06:18 06/03/24 08:35 06/18/24 08:03 Height 5 ft 5 in 5 ft 5 in 5 ft 5 in Weight: 263 lb 4 oz BMI 43.8 BP 109/78 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 Normal [facility] Ic Engineer Office Visit Reporton 06-03-2024 Ic Engineer Office Visit Report [facility] [address], [address] [place] [address] OFFICE VISIT Date of Service: 06/03/24 MR#: [id number] Acct: [id number] Name: LOUIS JIMENEZ Rep #: [id number] : 1980 Provider: DEAN Haider ams Age/Sex: 43/F [place] [facility] [place]: Signed Intake Vital Signs 11/11/23 06:18 [...] documented E (more content not included)... Normal [facility] Office Visiton 06-01-2024 Follow-up visit [id number] Long Jimenez 1980 F Date Provider Department Center 06/01/2024 [id number] FARRELL [facility] Family History Problem Relation Age [...] Father Mother Alive Sister Brother Level of Service:45539 [place] PERIODIC PREVENTIVE MED EST PATIENT 40-64YRS Reason for Visit and Comments: Annual Exam [83] - Patient asking for Lisinopril/hydrochlorot hiazide be in separate pill form due to it cost a lot more together . Normal [facility] Progress Noteon 06-01-2024 Progress Note [facility] - [address] [facility] [address] Visit type: Established Patient Reason [...] Subjective HPI Not exercising much Has been [facility] History of HYPERTENSION and anemia GERD is OK on omeprazole Had a mammogram at [place] recently Review of Systems Constitutional: Negative for [...] Obstructive sleep apnea Peptic ulceration Substance abuse ([facility] ([facility] Social History Socioeconomic History Marital status: Tobacco [...] the Last Ye (more content not included)... Normal [facility] SCRN MAMM (CAD)W/BRIDGET [place] n 03-29-2024 SCRN MAMM (CAD)W/BRIDGET [facility] Imaging Services [address] [place] [address] SCRN MAMM (CAD)W/BRIDGET VANG MR#: [id number] Acct: [id number] Name: LOUIS JIMENEZ Rep #: [id number] : 1980 F 43 From: Kodi collazo MD PCP: VERONICA FARRELL DO Status: REG [facility] Study: SCRN MAMM (CAD)W/BRIDGET BILAT Date of Exam: 03/17 06/08 Exam# [id number] Ordering [place]: [place] [id number] MAMMOGRAPHY - BILATERAL SCREENING REASON FOR EXAM: [...] delay biopsy of a clinically suspicious abnormality. [id number] Electronically Signed: Kodi Wright MD at 8:52 EST Reading Location ID and State: [facility] / [place] , Service support , CC: VERONICA FARRELL DO; Dr. Lilliam Patton DO Food And Beverage Associate: Signed Normal [facility] Urgent Care Visit Reporton 0 11-11-2023 Urgent Care Visit Report [facility] [address], [address] [place] [address] OFFICE VISIT Date of Service: 11/11/23 MR#: [id number] Acct: [id number] Name: LOUIS JIMENEZ Rep #: [id number] : 1980 Provider: YANCY Melchor Age/Sex: 43/F Location[place] [facility] [place] Status: Signed Intake Vital Signs 03/26/22 09:57 [...] noted several days ago leaning forward to chart picker an object and nose pain got remarkably worse to the same region. No complaints of chest pain/shortness of breath/dyspnea on exertion. PMH NC. No cough or radicular complaints upon questioning. No [id number] products taken to assist. No other associated [...] strain S (more content not included)... Normal [facility] Basophil percentageOrdered B y: VERONICA FARRELL on 04-18-2023 Bilirubin [Mass/Vol] 0.20 mg/dL 0.20-1.00 [facility] Comment on above: For patients on eltr ombopag therapy, use of Dimension [place] TBIL is not recommended. Chloride [Moles/Vol] 107 mmol/L 98-107 [facility] Cholesterol [Mass/Vol] 207 mg/dL <200 [facility] Comment on above: <200 mg/dL Desirable 200-240 mg/dL Borderline >240 mg/dL High Risk Glucose [Mass/Vol] 106 mg/dL 74-106 [facility] Comment on above: Fasting Glucose resu lt from 100 to 125 mg/dL suggests IMPAIRED HOMEOSTASIS per A.D.A. criteria. Hemoglobin (Bld) [Mass/Vol] 10.3 g/dL 12.0-15.0 [facility] Potassium [Moles/Vol] 3.5 mmol/L 3.5-5.1 [facility] Protein [Mass/Vol] 7.2 g/dL 6.4-8.2 [facility] Sodium [Moles/Vol] 139 mmol/L 136-145 [facility] Triglyceride [Mass/Vol] 61 mg/dL <199 [facility] Comment on above: The drugs N-Acetylcy steine and Metamizole may falsely depress this assay.Serum Triglycerides Reference Interval Normal <150 mg/dL Borderline high 150 - 199 mg/dL High 200 - 499 mg/dL Very High > or = 500 mg/dL WBC (Bld) [#/Vol] 8.0 10*3/uL 4.4-11.0 [facility] Determination of erythrocyte mean corpuscular volume (MCV)Ordered By: VERONICA FARRELL on 04-18-2023 MCV (RBC) [Entitic vol] 74.2 fL 81-99 [facility] Erythrocyte distribution wid th ratioOrdered By: VERONICA FARRELL on 04-18-2023 Erythrocyte distribution width (RBC) [Ratio] 15.7 % 11.6-14.6 [facility] Erythrocyte distribution wid th standard deviationOrdered By: VERONICA FARRELL on 04-18-2023 Erythrocyte distribution width (RBC) [Entitic vol] 42.0 fL 35.1-43.9 [facility] Hematocrit Auto (Bld) [Volum e fraction]Ordered By: VERONICA FARRELL on 04-18-2023 Hematocrit (Bld) [Volume fraction] 35.1 % 37-47 [facility] Iron measurement (mass/mass) Ordered By: VERONICA FARRELL on 04-18-2023 Iron (Unsp spec) [Mass/Mass] 24 ug/dL 50-170 [facility] Laboratory - Chemistry and C hemistry - challengeOrdered By: VERONICA FARRELL on 04-18-2023 Albumin/Globulin [Mass ratio] 1.1 {ratio} 0.9-2.4 [facility] ALP [Catalytic activity/Vol] 106 U/L 45-117 [facility] ALT [Catalytic activity/Vol] 22 U/L 13-56 [facility] Cholesterol in HDL (Body fld) [Mass/Vol] 61 mg/dL >40 [facility] Comment on above: The drugs N-Acetylcy steine and Metamizole may falsely depress this assay. Reference Range HDL <40 mg/dL Low HDL Cholesterol HDL >or= 60 mg/dL High HDL Cholesterol Cholesterol in LDL (Body fld) [Moles/Vol] 134 mg/dL 0-130 [facility] Cholesterol in VLDL Calc [Moles/Vol] 12 mg/dL 5-40 [facility] CO2 [Moles/Vol] 30.0 mmol/L 21.0-32.0 [facility] Ferritin [Mass/Vol] 4 ng/mL 8-252 [facility] Globulin (S) [Mass/Vol] 3.5 g/dL 2.2-4.2 [facility] Urea nitrogen/Creatinine [Mass ratio] 29.3 mg/mg 10-20 [facility] Laboratory - Hematology and Cell countsOrdered By: VERONICA FARRELL on 04-18-2023 MCH (RBC) [Entitic mass] 21.8 pg 27.0-32.0 [facility] MCHC (RBC) [Mass/Vol] 29.3 g/dL 32-36 [facility] Platelets (Bld) [#/Vol] 424 10*3/uL 150-450 [facility] No Panel InformationOrdered By: VERONICA FARRELL on 04-18-2023 Estimated GFR (MDRD) Amer 103 mL/min >60 [facility] Comment on above: GFR Calc Estimated GFR (MDRD) Non-Af Amer 85 mL/min >60 [facility] Comment on above: Non- GFR Calc Total Iron Binding Capacity 468 ug/dL 250-450 [facility] Platelet mean volume Tremaine-Ec ker (Bld) [Entitic vol]Ordered By: VERONICA FARRELL on 04-18-2023 Platelet mean volume (Bld) [Entitic vol] 9.8 fL 6.2-12.0 [facility] RBC Auto (Bld) [#/Vol]Ordere d By: VERONICA FARRELL on 04-18-2023 RBC (Bld) [#/Vol] 4.73 10*6/uL 4.2-5.4 [facility] Serum or plasma calcium kem urement (mass/volume)Ordered By: VERONICA FARRELL on 04-18-2023 Calcium [Mass/Vol] 9.3 mg/dL 8.5-10.1 [facility] Serum or plasma creatinine m easurement (mass/volume)Ordered By: VERONICA FARRELL on 04-18-2023 Creatinine [Mass/Vol] 0.79 mg/dL 0.55-1.02 [facility] Comment on above: The validity of the calculated GFR & GFRAA in patients over 70 years has not been determined. Clinical correlation is essential. Serum or plasma iron saturat ion measurement (mass fraction)Ordered By: VERONICA FARRELL on 04-18-2023 Iron saturation [Mass fraction] 5.1 % 15.0-55.0 [facility] Serum or plasma urea nitroge n measurement (mass/volume)Ordered By: VERONICA FARRELL on 04-18-2023 Urea nitrogen [Mass/Vol] 23 mg/dL 7-18 [facility] Thin prep Papanicolaou smear with manual screeningOrdered By: VERONICA FARRELL on 04-18-2023 Thin prep Papanicolaou smear with manual screening 3.7 g/dL 3.2-5.0 [facility] Thin prep Papanicolaou smear with manual screening 11 U/L 15-37 [facility] Thin prep Papanicolaou smear with manual screening 2 5-15 [facility] Whole blood hemoglobin A1c/t otal hemoglobin ratio (mass fraction)Ordered By: VERONICA FARRELL on 04-18-2023 HbA1c (Bld) [Mass fraction] 5.4 % 3.8-5.6 [facility] Comment on above: Normal < 5.7 % Predi abetic 5.7 - 6.4 % Diabetic >or= 6.5 % Please note range changes. Cervical or vagninal specime n microscopic examination by cytology stain (reported asOrdered By: Dr. Mares on 03-26-2022 Cytology report Cyto stain Doc (Cvx/Vag) Comment . [facility] Comment on above: The Pap smear is [...] DNA Probe+sig amp Ql (Cvx) Negative Negative [facility] Comment on above: This nucleic acid am plification test detects fourteen high- risk HPV types (16,18,31,33,35,39,45,51,52,56,58,59,66,68)without differentiation. Laboratory - CytologyOrdered By: Dr. Mares on 03-26-2022 Account Manager Education Cyto stain Nom (Cvx/Vag) [ID] Comment . [facility] Comment on above: Sruthi taylor, Land Surveying Manager (ASCP) Pathologist Cyto stain Nom (Cvx/Vag) [ID] Comment . [facility] Comment on above: Navin Hernandez MD, Pa thologist Laboratory - Miscellaneous t estsOrdered By: Dr. Mares on 03-26-2022 Service comment (Unsp spec) [Interp] Comment . [facility] Comment on above: This liquid based Th inPrep(R) pap test was screened withthe use of an image guided system. Service comment (Unsp spec) [Interp] . . [facility] Liquid-based cerv Pap + CT/G C by JANE w reflex to high-risk HPV for ASCUSOrdered By: Dr. Mares on 03-26-2022 Cytology report Cyto stain.thin prep Doc (Cvx/Vag) Comment . [facility] Comment on above: Criteria not met, HP V Genotype not performed.Performed at: - [facility] [id number] Director: Maria Frenanda Acuna MD, Phone: [phone] at: =[facility] [id number] Director: Maria Fernanda Acuna MD, Phone: [phone] No Panel InformationOrdered By: Dr. Mares on 03-26-2022 Pathology report final diagnosis Narrative Comment . [facility] Comment on above: NEGATIVE FOR INTRAEP ITHELIAL LESION OR MALIGNANCY.REACTIVE CELLULAR CHANGES AND/OR REPAIR ARE PRESENT. Absolute lymphocyte counton 10-02-2021 Lymphocytes Auto (Unsp spec) [#/Vol] 1.87 10*3/uL 0.83-4.51 [facility] Work Phone: Basophil percentageon 2021 Basophils/100 WBC (Bld) 0.4 % 0-1 [facility] Work Phone: Bilirubin [Mass/Vol] 0.30 mg/dL 0.20-1.00 [facility] Work Phone: Comment on above: For patients on eltr ombopag therapy, use of Dimension [place] TBIL is not recommended. Chloride [Moles/Vol] 108 mmol/L 98-107 [facility] Work Phone: Cholesterol [Mass/Vol] 177 mg/dL <200 [facility] Work Phone: [phone] Comment on above: <200 mg/dL Desirable 200-240 mg/dL Borderline >240 mg/dL High Risk Eosinophils/100 WBC (Bld) 2.0 % 0-5 [facility] Work Phone: Glucose [Mass/Vol] 100 mg/dL 74-106 [facility] Work Phone: [phone] Comment on above: Fasting Glucose resu lt from 100 to 125 mg/dL suggests IMPAIRED HOMEOSTASIS per A.D.A. criteria. Neutrophils (Bld) [#/Vol] 5.5 10*3/uL 2.0-7.7 [facility] Work Phone: Neutrophils/100 WBC (Bld) 69.4 % 47-70 [facility] Work Phone: Potassium [Moles/Vol] 4.0 mmol/L 3.5-5.1 [facility] Work Phone: [phone] Protein [Mass/Vol] 6.7 g/dL 6.4-8.2 [facility] Work Phone: [phone] Sodium [Moles/Vol] 141 mmol/L 136-145 [facility] Work Phone: [phone] Triglyceride [Mass/Vol] 72 mg/dL <199 [facility] Work Phone: [phone] Comment on above: The drugs N-Acetylcy steine and Metamizole may falsely depress this assay.Serum Triglycerides Reference Interval Normal <150 mg/dL Borderline high 150 - 199 mg/dL High 200 - 499 mg/dL Very High > or = 500 mg/dL WBC (Bld) [#/Vol] 7.9 10*3/uL 4.4-11.0 [facility] Work Phone: Blood erythrocytes count (nu mber/volume)on 10-02-2021 RBC (Bld) [#/Vol] 4.70 10*6/uL 4.2-5.4 [facility] Work Phone: Blood hemoglobin measurement (mass/volume)on 10-02-2021 Hemoglobin (Bld) [Mass/Vol] 9.6 g/dL 12.0-15.0 [facility] Work Phone: [phone] Blood lymphocytes/100 leukoc yteson 10-02-2021 Lymphocytes/100 WBC (Bld) 23.8 % 19-41 [facility] Work Phone: [phone] Blood monocytes/100 leukocyt eson 10-02-2021 Monocytes/100 WBC (Bld) 4.1 % 0-10 [facility] Work Phone: [phone] Blood platelet mean volumeon 10-02-2021 Platelet mean volume (Bld) [Entitic vol] 10.1 fL 6.2-12.0 [facility] Work Phone: [phone] Determination of erythrocyte mean corpuscular volume (MCV)on 10-02-2021 MCV (RBC) [Entitic vol] 71.3 fL 81-99 [facility] Work Phone: [phone] Hematocrit Auto (Bld) [Volum e fraction]on 10-02-2021 Hematocrit (Bld) [Volume fraction] 33.5 % 37-47 [facility] Work Phone: [phone] Iron measurement (mass/mass) on 10-02-2021 Iron (Unsp spec) [Mass/Mass] 23 ug/dL 50-170 [facility] Work Phone: [phone] Laboratory - Chemistry and C hemistry - challengeon 10-02-2021 ALP [Catalytic activity/Vol] 123 U/L 45-117 [facility] Work Phone: ALT [Catalytic activity/Vol] 18 U/L 13-56 [facility] Work Phone: [phone] CO2 [Moles/Vol] 27.0 mmol/L 21.0-32.0 [facility] Work Phone: Globulin (S) [Mass/Vol] 3.3 g/dL 2.2-4.2 [facility] Work Phone: [phone] Urea nitrogen/Creatinine [Mass ratio] 21.6 mg/mg 10-20 [facility] Work Phone: Laboratory - Hematology and Cell countson 10-02-2021 Erythrocyte distribution width (RBC) [Entitic vol] 45.9 fL 35.1-43.9 [facility] Work Phone: [phone] Erythrocyte distribution width (RBC) [Ratio] 18.3 % 11.6-14.6 [facility] Work Phone: [phone] Immature granulocytes/100 WBC (Bld) 0.300 % 0.0-0.9 [facility] Work Phone: [phone] Comment on above: IG% - Immature Granu locytes (promyelocytes, myelocytes and metamyelocytes) > 1% indicates that a LEFT SHIFT is Present. MCH (RBC) [Entitic mass] 20.4 pg 27.0-32.0 [facility] Work Phone: Nucleated RBC/100 WBC (Bld) [Ratio] 0 % 0-5 [facility] Work Phone: [phone] MCHC Auto (RBC) [Mass/Vol]on 10-02-2021 MCHC (RBC) [Mass/Vol] 28.7 g/dL 32-36 [facility] Work Phone: No Panel Informationon 10-02 Estimated GFR (MDRD) Amer 129 mL/min >60 [facility] Work Phone: Comment on above: GFR Calc Estimated GFR (MDRD) Non-Af Amer 107 mL/min >60 [facility] Work Phone: Comment on above: Non- GFR Calc Total Iron Binding Capacity 449 ug/dL 250-450 [facility] Work Phone: Platelets bldon 10-02-2021 Platelets (Bld) [#/Vol] 423 10*3/uL 150-450 [facility] Work Phone: Serum or plasma albumin kem urement (mass/volume)on 10-02-2021 Albumin [Mass/Vol] 3.4 g/dL 3.2-5.0 [facility] Work Phone: Serum or plasma albumin/glob ulin mass ratioon 10-02-2021 Albumin/Globulin [Mass ratio] 1.0 {ratio} 0.9-2.4 [facility] Work Phone: Serum or plasma calcium kem urement (mass/volume)on 10-02-2021 Calcium [Mass/Vol] 8.9 mg/dL 8.5-10.1 [facility] Work Phone: Serum or plasma cholesterol in HDL measurement (mass/volume)on 10-02-2021 Cholesterol in HDL [Mass/Vol] 48 mg/dL >40 [facility] Work Phone: Comment on above: The drugs N-Acetylcy steine and Metamizole may falsely depress this assay. Reference Range HDL <40 mg/dL Low HDL Cholesterol HDL >or= 60 mg/dL High HDL Cholesterol Serum or plasma cholesterol in VLDL measurement (mass/volume)on 10-02-2021 Cholesterol in VLDL [Mass/Vol] 14 mg/dL 5-40 [facility] Work Phone: Serum or plasma creatinine m easurement (mass/volume)on 10-02-2021 Creatinine [Mass/Vol] 0.65 mg/dL 0.55-1.02 [facility] Work Phone: Comment on above: The validity of the calculated GFR & GFRAA in patients over 70 years has not been determined. Clinical correlation is essential. Serum or plasma ferritin gregoria surement (mass/volume)on 10-02-2021 Ferritin [Mass/Vol] 3 ng/mL 8-252 [facility] Work Phone: Serum or plasma low density lipoprotein (LDL) cholesterol measurement (mass/volume)on 10-02-2021 Cholesterol in LDL [Mass/Vol] 115 mg/dL 0-130 [facility] Work Phone: Serum or plasma urea nitroge n measurement (mass/volume)on 10-02-2021 Urea nitrogen [Mass/Vol] 14 mg/dL 7-18 [facility] Work Phone: Thin prep Papanicolaou smear with manual screeningon 10-02-2021 Thin prep Papanicolaou smear with manual screening 14 U/L 15-37 [facility] Work Phone: Thin prep Papanicolaou smear with manual screening 6 5-15 [facility] Work Phone: PROGRESSon 04-15-2018 Protein mass conc HNO ID: [id number] Author: Nuria (Pt) Lashell Service: (none) Author Type: Physical Therapist Type: Progress Notes Filed: 04/15/2018 1:21 PM Note Text: 04/15/2018 [facility] REHABILITATION AND SPORTS THERAPY PHYSICAL THERAPY DISCONTINUANCE [...] scheduled additional follow-up appointments. Nuria Lobo PT [facility] CNTHERAPYon 01-06-2018 CNTHERAPY OT/PT/Speech Visit (PTWS) LOUIS OSEGUERA ([id number]) 1980 F Date Time Provider Department 01/06/18 10:30 AM NURIA LOBO (PT) PTWS Date Time Provider Department [place] 01/06/2018 10:30 AM [id number], LISA (PT) PTWS [facility] Reason for Visit: PT Eval [747] Patient Education [91] PT Discharge [752] Reason For Visit History Recorded Visit Diagnosis:Right thigh pain [M79.651] Allergies As of Date: 01/06/2018 Noted Allergy Reaction MORPHINE 09/30/2015 14 - Other: See Comments Comments: headaches TOPAMAX (TOPIRAMATE) 09/30/2015 14 - Other: See Comments Comments: Kidney stones Date Reviewed: 02/27/2017 Reviewed by: Mai Mccrary President [employer] Ceo [employer] - Fully Assessed Prescriptions as of 01/06/2018 [...] ORAL Take by mouth. Progress Notes: Nuria Lobo, PT 01/06/2018 12:34 PM Signed Episode Visit Count: 1 Therapist That Will Oversee The Plan Of Care: Nuria Lobo Start of Care Date: 01/06/18 Onset Date: 12/16/17 Plan of Care Certification Date: 01/06/18 Patient Identified by Name and Date of : Yes REHABILITATION AND SPORTS THERAPY PHYSICAL THERAPY EVALUATION PLAN OF CARE: Assessment: Louis Osgeuera presents with the chief complaint of pain [...] of Care: created on 01/06/18 through 02/06/18 [place] in home exercise program. 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 Nuria Lobo PT Letter Text Normal [facility] PROGRESSon 01-06-2018 Protein mass conc HNO ID: [id number] Author: Nuria Lobo Service: (none) Author Type: [...] of Care: created on 01/06/18 through 02/06/18 [place] in home exercise program. 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 Home Environment [...] as noted above 2x10 once daily Billing: [facility]: Evaluation - Low Complexity (75211) Therapeutic Exercise (57139): 1:1 time: 30 minutes (2 units: 23-37 mins) Total time: 45 minutes Nuria Lobo PT Normal [facility] Vital Signs Date Time Vital Sign Value Performing Clinician Chelo bunn 06-01-2024 08:23-0400 Body height 165.1 cm Veronica Farrell [employer] [employer] Work Phone: [facility] 06-01-2024 08:23-0400 Body mass index (BMI) [Ratio] 43.77 kg/m2 Veronica Farrell [employer] Work Phone: [facility] 06-01-2024 08:23-0400 Body temperature 98.1 [degF] Veronica Farrell [employer] Work Phone: [facility] 06-01-2024 08:23-0400 Body weight 119.3 kg Veronica Farrell [employer] [employer] Work Phone: [facility] 06-01-2024 08:23-0400 Diastolic blood pressure 78 mm[Hg] Veronica Farrell [employer] [employer] Work Phone: [facility] 06-01-2024 08:23-0400 Heart rate 62 /min Veronica Farrell [employer] [employer] Work Phone: [facility] 06-01-2024 08:23-0400 SaO2% (BldA) [Mass fraction] 98 % Veronica Farrell [employer] Work Phone: [facility] 06-01-2024 08:23-0400 Systolic blood pressure 115 mm[Hg] Veronica Farrell [employer] Work Phone: [facility] [employer] 04-11-2023 09:40-0500 Body height 165.1 cm Veronica Farrell DO Work Phone: [facility] 04-11-2023 09:40-0500 Body mass index (BMI) [Ratio] 42.43 kg/m2 Veronica Farrell DO Work Phone: [facility] 04-11-2023 09:40-0500 Body weight 115.67 kg Veronica Farrell DO Work Phone: [facility] 04-11-2023 09:40-0500 Diastolic blood pressure 72 mm[Hg] Veronica Farrell DO Work Phone: [facility] 04-11-2023 09:40-0500 Heart rate 76 /min Veronica Farrell DO Work Phone: [facility] 04-11-2023 09:40-0500 SaO2% (BldA) [Mass fraction] 98 % Veronica Farrell DO Work Phone: [facility] 04-11-2023 09:40-0500 Systolic blood pressure 118 mm[Hg] Veronicabridger Farrell DO Work Phone: [facility] 03-26-2022 09:57-0500 Body height 165.[address] Indio Londono Work Phone: [facility] 03-26-2022 09:57-0500 Body mass index (BMI) [Ratio] 45.4 kg/m2 Dr. Indio Londono Work Phone: [facility] 03-26-2022 09:57-0500 Body weight 123.[address] Indio Londono Work Phone: [facility] 03-26-2022 09:57-0500 Diastolic blood pressure 75 mm[Hg] Dr. Indio Londono Work Phone: [facility] 03-26-2022 09:57-0500 Systolic blood pressure 114 mm[Hg] Dr. Indio Londono Work Phone: [facility] 09-24-2021 06:16-0400 Body height 165.[address] Indio Londono Work Phone: [facility] Work Phone: 09-24-2021 06:16-0400 Body mass index (BMI) [Ratio] 48.9 kg/m2 Dr. Indio Londono Work Phone: [facility] Work Phone: 09-24-2021 06:16-0400 Body temperature 98.2 [degF] Dr. Indio Londono Work Phone: [facility] Work Phone: 09-24-2021 06:16-0400 Body weight 133.[address] Indio Londono Work Phone: [facility] Work Phone: 09-24-2021 06:16-0400 Diastolic blood pressure 96 mm[Hg] Dr. Indio Londono Work Phone: [facility] Work Phone: 09-24-2021 06:16-0400 Heart rate 71 /min Dr. Indio Londono Work Phone: [facility] Work Phone: 09-24-2021 06:16-0400 Respiratory rate 14 /min Dr. Indio Londono Work Phone: [facility] Work Phone: 09-24-2021 06:16-0400 SaO2% (BldA) [Mass fraction] 98 % Dr. Indio Londono Work Phone: [facility] Work Phone: 09-24-2021 06:16-0400 Systolic blood pressure 142 mm[Hg] Dr. Indio Londono Work Phone: [facility] Work Phone: 08-03-2021 10:11-0400 Body mass index (BMI) [Ratio] 49.3 kg/m2 Dr. Indio Londono Work Phone: [facility] Work Phone: 08-03-2021 10:11-0400 Body weight 134.[address] Indio Londono Work Phone: [facility] Work Phone: 08-03-2021 10:11-0400 Diastolic blood pressure 110 mm[Hg] Dr. Indio Londono Work Phone: [facility] Work Phone: 08-03-2021 10:11-0400 Systolic blood pressure 140 mm[Hg] Dr. Indio Londono Work Phone: [facility] Work Phone: Encounters Encounter Date Encounter Type Care Provider Facility Start: 01-25-2025 End: 01-25-2025 ambulatory [facility] Start: 10-27-2024 End: 10-27-2024 Orders Only Tayo Sung Lizzeth DO Work Phone: [facility] Comment on above: Edema, unspecified t ype (Primary Dx) Start: 10-25-2024 End: 10-25-2024 Orders Only Tayo Sung Lizzeth DO Work Phone: [facility] Comment on above: Edema, unspecified t ype (Primary Dx) Start: 06-18-2024 Encounter for gynecological examination (general) (routine) without abnormal findings Roberta Scott [facility] Start: 06-18-2024 End: 06-18-2024 ambulatory Roberta Scott Facility:[facility] Start: 06-03-2024 End: 06-03-2024 ambulatory Roberta Tyler Facility:[facility] Start: 06-01-2024 End: 06-01-2024 Patient encounter status Veronica Farrell DO Work Phone: [facility] Start: 06-01-2024 End: 06-01-2024 Periodic preventive med est patient 40-64yrs Veronica Farrell DO Work Phone: [facility] [employer] Comment on above: Well adult exam (Zarina arleth Dx); Screening, lipid; Screening for diabetes mellitus; Other iron deficiency anemia; Benign essential HTN; Opioid dependence in remission (HCC); Need for hepatitis C screening test; Need for Tdap vaccination Start: 06-01-2024 End: 06-01-2024 ambulatory VERONICA FARRELL [facility] Start: 03-29-2024 End: 03-29-2024 ambulatory Lilliam Patton Facility:[facility] Start: 11-11-2023 End: 11-11-2023 ambulatory VERONICA FARRELL Facility:[facility] Start: 04-18-2023 End: 04-18-2023 ambulatory [facility] Work Phone: Start: 04-18-2023 End: 04-18-2023 Patient encounter procedure [facility] Work Phone: Start: 04-11-2023 End: 04-11-2023 Patient encounter status Veronica Farrell DO Work Phone: [facility] Start: 04-11-2023 End: 04-11-2023 Periodic preventive med est patient 40-64yrs Veronica Farrell DO Work Phone: [facility] Comment on above: Well adult exam (Zarina arleth Dx); Right hip pain; Screening for diabetes mellitus; Benign essential HTN; Primary insomnia; Screening mammogram for breast cancer; Screening, lipid; Onychomycosis Start: 11-05-2022 Refill Veronica corodn DO Work Phone: [facility] Start: 04-30-2022 End: 04-30-[address] Indio Londono Work Phone: [facility] Work Phone: Start: 04-30-2022 End: 04-30-[address] Indio Londono Work Phone: [facility] Start: 03-26-2022 End: 03-26-[address] Indio Londono Work Phone: [facility] Work Phone: Start: 03-26-2022 End: 03-26-[address] Indio Londono Work Phone: [facility] Start: 03-26-2022 End: 03-26-[address] Indio Londono Work Phone: [facility] Start: 10-02-2021 End: 10-02-[address] Ind[facility] Londono [facility] Start: 09-24-2021 End: 09-24-[address] Indio Londono Work Phone: [facility] Start: 08-03-2021 End: 08-03-[address] Indio Londono Work Phone: [facility] Start: 07-13-2018 Patient encounter procedure VERONICA FARRELL [facility] Start: 01-06-2018 End: 01-07-2018 Patient encounter procedure NURIA (PT) LASHELL [facility] Procedures Date Procedure Procedure Detail Performing Clinician Start: 06-01-2024 Lipid 1996 panel - S pablo or Plasma Tayo Moreau DO Work Phone: Start: 04-30-2022 End: 04-30-[address] Indio Londono Work Phone: Plan of Treatment Date Care Activity Detail Author Start: 10-08-2055 RSV Immunization for Adults (1 - 1-dose 75+ series) RSV Immunization for Adults (1 - 1-dose 75+ series) [facility] Start: 2040 RSV Immunization age d 60 or older (1 - 1-dose 60+ series) RSV Immunization aged 60 or older (1 - 1-dose 60+ series) [facility] Start: 06-01-2034 DTaP/Tdap/Td Vaccine s (3 - Td or Tdap) DTaP/Tdap/Td Vaccines (3 - Td or Tdap) [facility] Start: 2030 Zoster Vaccines (1 of 2) Zoster Vacc travis (1 of 2) [facility] Start: 06-01-2029 Lipid panel Lipid Panel [facility] Start: 06-02-2025 End: 06-02-2025 Patient encounter procedure 06/02/2025 8:40 AM EDT Office Visit [facility] [address] [place] [address] Veronica Farrell DO [address] [place], [place] [address] [facility] Start: 06-01-2025 Diabetes mellitus screening Diabetes Screening [facility] Start: 12-02-2024 Depression Monitoring Depression Mon itoring [facility] Start: 11-15-2024 Influenza vaccination Influenza Vacc ine (#1) [facility] Start: 10-27-2024 End: 10-27-2025 CBC W Auto Differential panel - Blood CBC auto differential Lab Routine Edema, unspecified type Expected: 10/27/2024 (Approximate), Expires: 10/27/2025 [facility] Work Phone: Comment on above: Expected: 10/27/2024 (Approximate), Expires: 10/27/2025 Start: 10-27-2024 End: 10-27-2025 Comprehensive metabolic 1998 panel - Serum or Plasma Comprehensive metabolic panel Lab Routine Edema, unspecified type Expected: 10/27/2024 (Approximate), Expires: 10/27/2025 [facility] Comment on above: Expected: 10/27/2024 (Approximate), Expires: 10/27/2025 Start: 10-27-2024 End: 10-27-2025 Thyrotropin [Units/volume] in Serum or Plasma TSH Lab Routine Edema, unspecified type Expected: 10/27/2024 (Approximate), Expires: 10/27/2025 [facility] Comment on above: Expected: 10/27/2024 (Approximate), Expires: 10/27/2025 Start: 10-25-2024 End: 10-25-2025 CBC W Auto Differential panel - Blood CBC auto differential Lab STAT Edema, unspecified type Expected: 10/25/2024 (Approximate), Expires: 10/25/2025 [facility] Work Phone: Comment on above: Expected: 10/25/2024 (Approximate), Expires: 10/25/2025 Start: 10-25-2024 End: 10-25-2025 Comprehensive metabolic 1998 panel - Serum or Plasma Comprehensive metabolic panel Lab STAT Edema, unspecified type Expected: 10/25/2024 (Approximate), Expires: 10/25/2025 [facility] [employer] Comment on above: Expected: 10/25/2024 (Approximate), Expires: 10/25/2025 Start: 10-25-2024 End: 10-25-2025 Thyrotropin [Units/volume] in Serum or Plasma TSH Lab STAT Edema, unspecified type Expected: 10/25/2024 (Approximate), Expires: 10/25/2025 [facility] [employer] Comment on above: Expected: 10/25/2024 (Approximate), Expires: 10/25/2025 Start: 06-01-2024 End: 06-01-2025 CBC panel - Blood by Automated count CBC Lab Routine Benign essential HTN Expected: 06/01/2024 (Approximate), Expires: 06/01/2025 [employer] [employer] Comment on above: Expected: 06/01/2024 (Approximate), Expires: 06/01/2025 Start: 06-01-2024 End: 06-01-2025 Comprehensive metabolic 1998 panel - Serum or Plasma Comprehensive metabolic panel Lab Routine Benign essential HTN Expected: 06/01/2024 (Approximate), Expires: 06/01/2025 [facility] [employer] [employer] Comment on above: Expected: 06/01/2024 (Approximate), Expires: 06/01/2025 Start: 06-01-2024 End: 06-01-2025 Hemoglobin A1c measurement Hemoglobin A1c Lab Routine Screening for diabetes mellitus Expected: 06/01/2024 (Approximate), Expires: 06/01/2025 [facility] [employer] Comment on above: Expected: 06/01/2024 (Approximate), Expires: 06/01/2025 Start: 06-01-2024 End: 06-01-2025 Hepatitis C virus Ab [Presence] in Serum or Plasma by Immunoassay Hepatitis C antibody Lab Routine Need for hepatitis C screening test Expected: 06/01/2024 (Approximate), Expires: 06/01/2025 [facility] [employer] Comment on above: Expected: 06/01/2024 (Approximate), Expires: 06/01/2025 Start: 06-01-2024 End: 06-01-2025 Lipid 1996 panel - Serum or Plasma Lipid panel Lab Routine Screening, lipid Expected: 06/01/2024 (Approximate), Expires: 06/01/2025 [facility] Work Phone: Comment on above: Expected: 06/01/2024 (Approximate), Expires: 06/01/2025 Start: 03-17-2024 DTaP/Tdap/Td Vaccine s (2 - Td or Tdap) DTaP/Tdap/Td Vaccines (2 - Td or Tdap) [facility] Start: 11-16-2023 COVID-19 Vaccine ( season) COVID-19 Vaccine () [facility] Start: 11-16-2023 Influenza vaccination Influenza Vacc ine (#1) [facility] Start: 04-30-2023 Screening for malign ant neoplasm of breast Mammogram [facility] [employer] Start: 04-11-2023 End: 04-11-2024 CBC panel - Blood by Automated count CBC Lab Routine Benign essential HTN Expected: 04/11/2023 (Approximate), Expires: 04/11/2024 [facility] [employer] Comment on above: Expected: 04/11/2023 (Approximate), Expires: 04/11/2024 Start: 04-11-2023 End: 04-11-2024 Comprehensive metabolic 1998 panel - Serum or Plasma Comprehensive metabolic panel Lab Routine Benign essential HTN Expected: 04/11/2023 (Approximate), Expires: 04/11/2024 [facility] [employer] Comment on above: Expected: 04/11/2023 (Approximate), Expires: 04/11/2024 Start: 04-11-2023 End: 06-09-2024 DBT Breast - bilateral screening Bilateral screening mammogram with tomosynthesis Imaging Routine Screening mammogram for breast cancer Expected: 04/11/2023, Expires: 06/09/2024 [facility] Work Phone: Comment on above: Expected: 04/11/2023 , Expires: 06/09/2024 Start: 04-11-2023 End: 04-11-2024 Hemoglobin A1c measurement Hemoglobin A1c Lab Routine Screening for diabetes mellitus Expected: 04/11/2023 (Approximate), Expires: 04/11/2024 [facility] [employer] [employer] Comment on above: Expected: 04/11/2023 (Approximate), Expires: 04/11/2024 Start: 04-11-2023 End: 04-11-2024 Lipid 1996 panel - Serum or Plasma Lipid panel Lab Routine Screening, lipid Expected: 04/11/2023 (Approximate), Expires: 04/11/2024 [facility] Comment on above: Expected: 04/11/2023 (Approximate), Expires: 04/11/2024 Start: 11-15-2022 COVID-19 Vaccine () COVID-19 Vaccine () [facility] Start: 11-15-2022 Influenza vaccination Influenza Vacc ine (#1) [facility] Start: 03-26-2022 Liquid based cervica l cytology screening [facility] Work Phone: Start: 05-18-2021 COVID-19 Vaccine (2 - Booster for Citlalli series) COVID-19 Vaccine (2 - Booster for Citlalli series) [facility] Start: 2020 Screening for malign ant neoplasm of breast Mammogram [facility] Start: 2010 Screening for malign ant neoplasm of cervix [facility] Start: 2001 Screening for malign ant neoplasm of cervix Pap Smear [facility] Start: 1998 Diabetes mellitus screening Diabetes Screening [facility] Start: 1998 Hepatitis C screening Hepatitis C Sc reening [facility] Start: 04-14-1998 Hepatitis B Vaccines (2 of 3 - 3-dose series) Hepatitis B Vaccines (2 of 3 - 3-dose series) [facility] Start: 1993 Varicella vaccination Varicell a Vaccines (1 of 2 - 13+ 2-dose series) [facility] Start: 1992 Depresssion Monitoring Depresssion M onitoring [facility] Start: 1981 MMR Vaccines (1 of 1 - Standard series) MMR Vaccines (1 of 1 - Standard series) [facility] Start: 1981 Varicella vaccination Varicell a Vaccines (1 of 2 - 2-dose childhood series) [facility] Start: 1980 HIV screening HIV Screening [facility] Start: 1980 Lipid panel Lipid Panel [facility] th MG Breast - bilatera l Screening [facility] Work Phone: Path report.final Dx Spec [facility] Work Phone: Immunizations Immunization Date Immunization Notes Care Provider Milvia ramsay 06-01-2024 tetanus toxoid, redu marvin diphtheria toxoid, and acellular pertussis vaccine, adsorbed Veronica Farrell DO Work Phone: [facility] 03-23-2021 Covid (Moderna) Dr. Indio chang Work Phone: [facility] 03-23-2021 Citlalli SARS-CoV-2 Vaccination Veronica Farrell DO Work Phone: [facility] 12-21-2015 influenza, injectabl e, quadrivalent, contains preservative Veronica Farrell DO Work Phone: [facility] 12-21-2015 influenza virus vaccine, unspecified formulation Veronica Farrell DO Work Phone: [facility] 01-05-2015 influenza virus vaccine, unspecified formulation Veronica Farrell DO Work Phone: [facility] 03-17-2014 tetanus toxoid, redu marvin diphtheria toxoid, and acellular pertussis vaccine, adsorbed Veronicabridger Farrell DO Work Phone: [facility] 01-14-2014 influenza virus vaccine, unspecified formulation Veronica Farrell DO Work Phone: [facility] 03-17-1998 hepatitis B vaccine, adult dosage Veronicabridger Farrell DO Work Phone: [facility] Payers Date Payer Category Payer [place] [facility] [place] [facility] [id number] 2024 Unknown [id number] 2023 Self-pay [id number] 2021 Unknown [id number] 1980 Unknown [id number] Private Health Insurance [id number] Unknown Unknown [id number] Unknown [id number] Unknown [id number] Unknown [id number] Unknown [id number] Social History Date Type Detail Facility Start: 09-24-2021 End: 03-26-2022 Tobacco smoking status AZIS Unknown if ever smoked [facility] Start: 07-17-2020 Non-smoker [facility] Start: 1980 Sex Assigned At Female [facility] Start: 03-01-2022 End: 06-01-2024 Alcohol intake Ex-drinker (finding) [facility] Start: 03-01-2022 End: 06-01-2024 History of Social function [facility] Start: 03-01-2022 End: 06-01-2024 Tobacco use panel [facility] Start: 03-01-2022 Alcohol Comment Drank 750ml of Vodka 4-5 times a week for several years [facility] Start: 01-03-2022 Gender identity Identifies as female gender (finding) [facility] Start: 01-03-2022 Sexual orientation Heterosexual (finding) [facility] How often do you nee d to have someone help you when you read instructions, pamphlets, or other written material from your doctor or pharmacy [SILS] Never [facility] [employer] Has the Remote, [employer], or water [employer] threatened to shut off services in your home in past 12Mo No [employer] Do you belong to any clubs or organizations such as mosque groups, unions, fraternal or athletic groups, or school groups? Yes [facility] [employer] Are you now , , , , never or living with a partner? Living with partner [employer] How often to you hav e a drink containing alcohol? Never [facility] [employer] Do you feel stress - tense, restless, nervous, or anxious, or unable to sleep at night because your mind is troubled all the time - these days [OSQ] Not at all [employer] [facility] [employer] (I/We) worried wheth er (my/our) food would run out before (I/we) got money to buy more. Never true [facility] ACQUISITION Start: 10-15-2021 Sex Female (finding) [facility] [employer] Medical Equipment Procedure Code Equipment Code Equipment [...] 04-09-2021 Clinical Notes 03-26-2022 to 06-01-2024 Veronica Farrell DO - 06/01/2024 8:20 AM EDTChusha Farrell, - 04/11/2023 9:40 AM ESTTelephone Encounter - Lilliam Chilel MA - 11/05/2022 12:21 PM EDT Note Date & Type Note Facility 06-01-2024 History of Presen t illness Narrative Images from the original note were not included. [facility] [place] [address] [place] [facility] [phone] Visit type: Established Patient Reason [...] Subjective HPI Not exercising much Has been [facility] History of HYPERTENSION and anemia GERD is OK on omeprazole Had a mammogram at [place] recently Review of Systems Constitutional: Negative for [...] Obstructive sleep apnea Peptic ulceration Substance abuse ([facility] ([facility]) Social History Socioeconomic History Marital status: Tobacco [...] min Stress: No Stress Concern Present (06/01/2024) [employer] - Occupational Stress Questionnaire Feeling of Stress : Not at all Social Connections: Socially Integrated (06/01/2024) Social Connection and Isolation Panel [NHANES] Frequency of Communication with Friends and Family: More than three times a week Frequency of Social Gatherings with Friends and Family: Once a week Attends Orthodoxy Services: More than 4 times per year [...] 06/01/2024 9:30 AM documented in this encounter [facility] 04-11-2023 History of Presen t illness Narrative Images from the original note were not included. [facility] [address] [place] [facility] [phone] Visit type: Established Patient Reason [...] sleep apnea Peptic ulceration Substance abuse (CMS/HCC) (HCC) Social History Socioeconomic History Marital status: Tobacco [...] 04/11/2023 12:17 PM documented in this encounter [facility] 11-05-2022 Telephone encount er Note Recent Visits Date Type Provider Dept 03/01/22 Office Visit Veronica Farrell DO [facility] Showing recent visits within past 365 [...] prescription showing no refills in chart): Yes [facility] 11-05-2022 Miscellaneous Notes Formattin g of this note is different from the original. Recent Visits Date Type Provider Dept 03/01/22 Office Visit Veronica Farrell DO [facility] Showing recent visits within past 365 [...] in chart): Yes documented in this encounter [facility] [employer] 03-26-2022 Note [facility] Pap Smear Specimen Adequacy March 26, 2022 2:41pm Comment . Satisfactory for evaluation. No endocervical component is identified. Comment on above: Satisfactory for bere luation. No endocervical component is identified. Evaluation note Diagnosis Onset Date Encounter for removal and re insertion of Nexplanon acute Infected dental caries acute [facility] Work Phone: Evaluation note* Diagnosis Onset Date Resolution Status Encounter for routine gynecological examination noneactive [facility] Work Phone: Evaluation note* Diagnosis Well adult exam- Primary Routine general medical examination at a health care facility Right hip pain Pain in joint, pelvic region and thigh Screening for diabetes mellitus Benign essential HTN Primary insomnia Persistent disorder of initiating or maintaining sleep Screening mammogram for breast cancer Screening, lipid Onychomycosis Dermatophytosis of nail documented in this encounter [facility]No assessment information availableW[facility] Work Phone: Evaluation note* Diagnosis [...] vaccination Need for prophylactic vaccination with combined [id number]-tlizdcfgi (DTP) vaccine documented in this encounter [facility]* Diagnosis Edema, unspecified type- Primary documented in this encounter [facility] Summary Purpose Family History No Family History Records Found Relationship Condition Age at Onset Recorded Date/T adis father Hypertension Unknown Addiction Unknown grandfather Cardiac disease Unknown Diabetes mellitus Unknown Obesity Unknown Advance Directives No Advanced Directives Records Found Advance Directive Response Recorded Date/ Time Living Will No April 23 11:34am Power of Regional Vice President Life [employer] No April 23, 2021 11:34am Advance Directive Response Recorded Date/ Time Living Will No April 23 10:34am Power of Regional Vice President [employer] No April 23, 2021 10:34am Chief Complaint and Reason for Visit Chief Complaint consult Nexplanon re moval / discuss other options PT STATES IMPACTED TOOTH Reason for Visit Encounter for remova l and reinsertion of Nexplanon Infected dental caries Chief Complaint 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 Reason for Visit Encounter for routin e gynecological examination Chief Complaint 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 Reason for Visit Encounter for routin e gynecological examination Reason for Referral Specialty Diagnoses / Procedures Referred By Casey t Referred To Contact Physical Therapy Diagnoses Right hip pain Procedures IA OFFICE/OUTPATIENT [facility] 60 MINUTES Veronica Farrell DO [address] [place] [address] Referral ID Status Reason Start Date Expiration Date Visits Requested Visits Authorized [id number] Pending Review Eval and Treat 04/11/2023 10/08/2023 99 99 Additional Source Comments INFORMATION SOURCE (unrecogn ized section and content) DATE CREATED AUTHOR 04/30/2018 [facility] DATE CREATED AUTHOR AUTHOR'S ORGANIZ ATION 06/24/2018 [facility] DATE CREATED AUTHOR AUTHOR'S ORGANIZ ATION 06/20/2024 [facility] DATE CREATED AUTHOR AUTHOR'S ORGANIZ ATION 01/27/2025 [facility] Goals (unrecognized section and content) Goals may [...] Provi rosangela, Attending Provider, Referring Provider Active [employer] Relationship Specialty Start Date End Date Veronica Farrell DO [address] [place] [id number] PCP - General 09/15/14 [employer] Relationship Specialty Start Date End Date Veronica Farrell DO [address] [place] [phone] PCP - General 09/15/14 Team Status: Active Member Role Status Dates Veronica GREENBERG Family Provider Active VERONICA FARRELL DO Primary Care Provider Active Team Status: Inactive Member Role Status Dates VERONICA FARRELL DO Primary Care Provi rosangela, Attending Provider, Referring Provider Active [employer] Relationship Specialty Start Date End Date Veronica Farrell DO [address] [place] [id number] PCP - General 09/15/14 [employer] Relationship Specialty Start Date End Date Veronica Farrell DO [address] [place] [id number] PCP - General 09/15/14 Reason for Visit [...] BE BASED ON THE PRIMARY CLINICAL RECORDS. [facility] [employer] [facility] provides no warranty or guarantee of the accuracy or completeness of information in this document.
[2025-01-27 08:36] LABS: Hematocrit 42.4 % (37-47); Hemoglobin 13.9 g/dL (12.0-15.0); Mean Corp Hgb Conc 32.8 g/dL (32-36); Mean Corpuscular Volume 86.0 fL (81-99); Mean Platelet Vol. 10.3 fl (6.2-12.0); Platelet Count 367 K/mm3 (150-450); RBC Distribution Width CV 13.3 % (11.6-14.6); RBC Distribution Width SD 41.7 fl (35.1-43.9); Red Blood Count 4.93 M/mm3 (4.2-5.4); White Blood Count 9.2 K/mm3 (4.4-11.0)
[2025-01-27 09:17] LABS: Anion Gap 10 (5-15); BUN 22 mg/dL (4-19); BUN/Creat Ratio 25.7 RATIO (10-20); Calcium,Total 9.8 mg/dL (7.6-11.0); Carbon Dioxide 27.2 mmol/L (21.0-32.0); Chloride 103 mmol/L (98-108); Glucose 96 mg/dL (70-99); Potassium 4.3 mmol/L (3.3-5.1)
== END | disposition home or self-care (01) ==
PROVIDERS: PCP Family Medicine; Referring Provider Family Medicine; Visit Provider Family Medicine
DX: I10 Essential (primary) hypertension (principal)
CPT/HCPCS: 36415; 80048; 84443; 85027